=== PATIENT | female | born 1955 | race Caucasian/White ===

== ENCOUNTER 2020-02-03 09:22 | Inpatient (IN) | payer OTHER ==
[~2020-02-03] VITALS: Ht 152.4 cm; Wt 80.9 kg
[2020-02-03] VITALS (11 sets, daily range): BP systolic 125–153; BP diastolic 61–84
[2020-02-03] MEDS ORDERED: ACETAMINOPHEN 325 MG TABLET. PO PRN (11:15)
[2020-02-03] MEDS: HYDROcodone/APAP 5/325MG 1 TAB TABLET PO PRN ×3 (11:54→23:32)
--- NOTE | 2020-02-03 12:56 | HP ---
ADMIT DATE: 02/03/2020 CHIEF COMPLAINT: Pelvic mass. 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 She presented as a transfer from [employer]. She has a pelvic mass. I discussed the case with the nurse, the patient and the ER physician. We are going to admit the patient. We are going to consult Dr. Pedro Pagan of the AUTO BODY BUILDER APPRENTICE service and Oncology. PAST MEDICAL HISTORY: Benign. ALLERGIES: LATEX, RUBBER and FEXOFENADINE. FAMILY HISTORY: Diabetes. SOCIAL HISTORY: She does not drink, smoke or take drugs. 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 MEDICATIONS: Reviewed, please refer to the MRAD. REVIEW OF SYSTEMS: GENERAL: No history of weight change, weakness or fevers. SKIN: No bruising, hair changes or rashes. EYES: No blurred, double or loss of vision. NOSE AND THROAT: No history of nosebleeds, hoarseness or sore throat. HEART: No history of palpitations, chest pain or shortness of breath on exertion. LUNGS: Denies cough, hemoptysis, wheezing or shortness of breath. GASTROINTESTINAL: Denies changes in appetite, nausea, vomiting, diarrhea or constipation. GENITOURINARY: No history of frequency, urgency, hesitancy or nocturia. NEUROLOGIC: Denies history of numbness, tingling, tremor or weakness. PSYCHIATRIC: No history of panic, anxiety or depression. ENDOCRINE: No history of heat or cold intolerance, polyuria or polydipsia. EXTREMITIES: Denies muscle weakness, joint pain, pain on walking or stiffness. PHYSICAL EXAMINATION: VITALS: Within normal limits and are stable. GENERAL: No apparent distress. Alert and oriented. HEENT: Normal cephalic atraumatic, external auditory canals are patent EYES: Extraocular muscles are intact, pupils are equally round and reactive to light and accommodation MUSCULOSKELETAL: Well developed, well nourished, good range of motion ENDOCRINE: No thyromegaly was palpated LYMPHATICS: No cervical chain or axillary nodes were noted HEMATOPOIETIC: No bruising NECK: Supple, no JVD, no thyromegaly was noted. LUNGS: Clear to auscultation in all lung valdovinos without rhonchi or wheezing. HEART: RRR, S1, S2 present. Peripheral pulses intact, no obvious murmurs were noted. ABDOMEN: Soft, nontender. Positive bowel sounds no organomegaly, normal bowel sounds. EXTREMITIES: Without any cyanosis, clubbing, or edema. Pedal pulses intact, Homans sign is negative. NEUROLOGIC: Normal speech, normal tone. A & O x3, moves all extremities, no obvious focal deficits. PSYCHIATRIC: Normal affect, normal mood. Stable. SKIN: No ulcerations or rashes, good skin turgor, no jaundice. VASCULAR: Good capillary refill, neurovascular bundle appears to be intact. ASSESSMENT/PLAN: Pelvic mass. The patient will be admitted. We will consult [employer] BODY BUILDER APPRENTICE and Oncology. IV fluids, home meds, DVT prophylaxis. Full code. Trend labs. TIARA MALONE DO DR: ROSA/chandrakant JOB#: [id number] / [id number]
[2020-02-03] MEDS ORDERED: PROCHLORPERAZINE 10 MG/2 ML VIAL. IV PRN (15:15)
[2020-02-03] MEDS ORDERED: IV RINGERS,LACTATED 1000ML 1,000 ML IV SCH (15:15)
[2020-02-03] MEDS ORDERED: fentaNYL PF VIAL 100 MCG/2 ML VIAL IV PRN ×2 (15:15)
[2020-02-03] MEDS ORDERED: ONDANSETRON PF 4 MG/2 ML VIAL. IV PRN (15:15)
[2020-02-03] MEDS ORDERED: HYDROmorphone 2 MG/ML VIAL IV PRN (15:15)
[2020-02-03] MEDS ORDERED: ROCURONIUM 50 MG/5 ML VIAL. ONE (15:47)
[2020-02-03] MEDS ORDERED: fentaNYL PF VIAL 250 MCG/5 ML VIAL ONE (15:47)
[2020-02-03] MEDS ORDERED: ceFAZolin SODIUM IV Push 1 GM VIAL. IVP ONE ×2 (16:01)
--- NOTE | 2020-02-03 16:06 | CONS ---
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 The patient is seen in consultation because of pelvic mass in the sonogram and she is patient of Dr. Rosales and the patient is 2, para 2. She states she never had any PROTECTION SPECIALIST problem before. No history of any vaginal bleeding at this time. She states that she had a fever and urinary tract infection, which was treated last week and at the present time, she has severe backache, unable to walk and having abdominal discomfort, pelvic discomfort. PHYSICAL EXAMINATION: VITAL SIGNS: Stable at this time. The patient is COVID negative at this time. ABDOMEN: Feels soft and there is palpable mass in the pelvic area. PELVIC: Shows external genitalia being normal. Cervical os is closed. On bimanual exam, uterus feels enlarged and tender to palpate. No adnexal masses clearly felt at this time. EXTREMITIES: No edema of feet. IMPRESSION: Pelvic mass, possible degenerating fibroid, rule out malignancy of the uterus and ovary. RECOMMENDATIONS: It was explained to the patient that we will go ahead with a laparotomy and see if it is a fibroid that can be removed. We will do a hysterectomy and removal of the fibroid and removal of tubes and ovaries, but if she has a suspicion of malignancy on opening the abdomen, then no further surgery will be done. We will close and get a consultation from oncologist for further care and treatment. This plan was discussed with Dr. Rosales and as the patient is n.p.o. at this time, we will go ahead with the surgery today. Thank you for giving me the opportunity to participate in the care and management of this patient. FABIAN RAMOS MD DR: PHANI/chandrakant JOB#: [id number] / [id number]
[2020-02-03] MEDS ORDERED: SEVOFLURANE 31 TO 60 MINUTES. IH ONE (16:29)
[2020-02-03] MEDS ORDERED: LIDOCAINE 2% PF 5 ML VIAL. ONE (16:29)
[2020-02-03] MEDS ORDERED: PROPOFOL 10 MG/ML (20ML) VIAL. IV ONE (16:29)
[2020-02-03] MEDS ORDERED: ONDANSETRON PF 4 MG/2 ML VIAL. ONE (16:29)
[2020-02-03] MEDS ORDERED: DEXAMETHASONE SOD PHOS 4 MG/ML VIAL ONE (16:29)
[2020-02-03] MEDS ORDERED: NEOSTIGMINE METHYLSULFATE 5 MG/5 ML SYRINGE. ONE (16:30)
[2020-02-03] MEDS ORDERED: GLYCOPYRROLATE 1 MG/5 ML VIAL. ONE (16:30)
--- NOTE | 2020-02-03 16:44 | PDOC ---
GENERAL General: Patient Schduled for Laparotomy today VITAL SIGNS Vital Signs/I&O: Vital Signs Date Time Temp Pulse Resp B/P (MAP) Pulse Ox O2 Delivery O2 Flow Rate FiO2 02/03/20 15:00 98.2 99 16 153/84 (107) 95 Room Air 98.2 ALLERGIES Allergies: Allergies Coded Allergies Type Severity Reaction Last Updated Verified Latex, Natural Rubber Allergy Intermediate "bad rash" 02/03/20 Yes fexofenadine Allergy Mild Anxiety 02/03/20 Yes MEDS Medications: Current Medications Medications (Trade) Dose Ordered Sig/Rm Route PRN Reason Start Time Stop Time Status Last Admin Dose Admin Acetaminophen/ Hydrocodone Bitart (Lortab 5/325) 1 tab PRN Q4HRS PRN PO PAIN 02/03/20 11:15 02/03/20 11:54 ASSESSMENT & PLAN A&P Under GA Laparotomy done Large Mass above the Uterus noted and Adherent to Adjacent structures extending on to the Bladder and No mobility of the Mass also extends very Deep posteriorly on to the Rectum.Peritoneal fluid sent for Cytology. Abdomen Closed . No further Surgery done. EBL 20cc. Justifications for Admission Other Justification FABIAN RAMOS MD Feb 03, 2020 16:44
[2020-02-03] MEDS: IV NORMAL SALINE 1000ML BAG 1,000 ML IV SCH (17:00)
[2020-02-03] MEDS ORDERED: MORPHINE SULFATE 2 MG/ML VIAL. ONE (17:19)
--- NOTE | 2020-02-03 17:19 | OP ---
DATE OF SURGERY: 02/03/2020 PREOPERATIVE DIAGNOSES: Backache, abdominal and pelvic pain, pelvic mass. POSTOPERATIVE DIAGNOSES: Backache, abdominal and pelvic pain, pelvic mass, rule out malignancy. OPERATION PERFORMED: Laparotomy, aspiration of peritoneal fluid for cytology. DESCRIPTION OF PROCEDURE: The patient was taken to the operating room under general anesthesia. She was placed in the dorsal supine position. Watson catheter introduced into bladder for continuous bladder drainage. Lower abdomen was prepped and draped in the usual manner. A Pfannenstiel incision was made, abdomen opened in layers and visualization of pelvic structures revealed peritoneal fluid around the mass and there is a large mass on the top of the uterus, which was quite adherent to adjacent structures, extending onto the bladder as well as on the side abdominal wall and there is quite adherent and there is no mobility of the mass as such posteriorly extending onto the rectal area and aspiration of peritoneal fluid was done and sent for cytology. After this abdomen closed in layers using continuous 0 chromic catgut sutures for the peritoneum, the muscle, the fascia, 3-0 plain continuous sutures applied for subcutaneous tissue, 3-0 Vicryl subcutaneous sutures were placed and a pressure dressing was given. The patient was sent to the recovery room in good condition. No complications encountered at the time of the procedure. Estimated blood loss about 20 mL. No complications during the time of the procedure. FABIAN RAMOS MD DR: PHANI/chandrakant JOB#: [id number] / [id number]
[2020-02-03] MEDS: MORPHINE SULFATE 2 MG/ML VIAL. IV PRN ×3 (17:25→19:27)
[2020-02-03] MEDS ORDERED: LORA10TA55 PO (20:29)
[2020-02-03] MEDS ORDERED: DULO60CA6 PO (20:29)
[2020-02-03] MEDS ORDERED: IBUP-1060 PO (20:29)
[2020-02-03] MEDS ORDERED: BUPR150T27 PO (20:29)
[2020-02-03] MEDS ORDERED: OMEP20CA16 PO (20:29)
[2020-02-03] MEDS ORDERED: POTA500T5 PO (20:29)
[2020-02-03] MEDS ORDERED: ALPR0.5T6 PO (20:29)
[2020-02-03] MEDS ORDERED: CALC-642 PO (20:29)
[2020-02-03] MEDS ORDERED: LEVO88TA4 PO (20:29)
[2020-02-03] MEDS ORDERED: MULT-238 PO (20:29)
[2020-02-03] MEDS ORDERED: DIVA-53 PO (20:29)
[2020-02-03] MEDS: buPROPion SR 150 MG TABLET.SA PO SCH (21:13)
[2020-02-03] MEDS: DIVALPROEX DELAYED RELEASE 250 MG TABLET.DR. PO SCH (21:14)
[2020-02-03] MEDS: fentaNYL PF VIAL 100 MCG/2 ML VIAL IVP PRN ×2 (21:15→23:33)
[2020-02-03] MEDS: ONDANSETRON PF 4 MG/2 ML VIAL. IVP PRN (21:15)
--- NOTE | 2020-02-04 00:30 | NUR ---
Patient triggered positive on sepsis screen. ICU supercharge repair supervisor notified, lactic acid ordered and blood cultures x2 . Lactic acid came back 0.8.
[2020-02-04 02:40] LABS: BASO % 0 % (0-3); EOS # 0.1 x10^3/uL (0.0-0.7); EOS % 0 % (0-3); HEMATOCRIT 31.7 % (36.0-47.0); HEMOGLOBIN 10.5 g/dL (12.0-15.5); LYMPH # 1.8 x10^3/uL (1.0-4.8); LYMPH % 9 % (24-48); MEAN CORPUSCULAR HEMOGLOBIN 28 pg (25-35); MEAN CORPUSCULAR HGB CONC 33 g/dL (31-37); MEAN CORPUSCULAR VOLUME 84 fL (79-100); MONO # 1.3 x10^3/uL (0.0-1.1); MONO % 7 % (0-9); NEUT % 83 % (31-73); PLATELET COUNT 472 x10^3/uL (140-400); RED BLOOD COUNT 3.78 x10^6/uL (3.50-5.40); RED CELL DISTRIBUTION WIDTH 14.7 % (11.5-14.5); WHITE BLOOD COUNT 19.2 x10^3/uL (4.0-11.0)
[2020-02-04] MEDS: fentaNYL PF VIAL 100 MCG/2 ML VIAL IVP PRN ×6 (02:50→22:39)
[2020-02-04 02:57] LABS: CALCIUM 8.6 mg/dL (8.5-10.1); CREATININE 0.7 mg/dL (0.6-1.0); GFR 83.7; POTASSIUM 3.9 mmol/L (3.5-5.1)
[2020-02-04] MEDS: ALPRAZolam 0.5 MG TABLET PO PRN (02:59)
[2020-02-04 03:12] VITALS: BP 127/73
[2020-02-04] MEDS: ONDANSETRON PF 4 MG/2 ML VIAL. IVP PRN (03:18)
[2020-02-04] MEDS: HYDROcodone/APAP 5/325MG 1 TAB TABLET PO PRN ×5 (03:47→21:58)
[2020-02-04 04:16] LABS: % BANDS 9 % (0-9); % LYMPHS 9 % (24-48); % MONOS 4 % (0-10); % SEGS 78 % (35-66); PLT ESTIMATE ADEQUATE (ADEQUATE)
[2020-02-04 04:17] LABS: ANISOCYTOSIS SLIGHT; TOXIC GRANULATION SLIGHT
[2020-02-04] MEDS: PANTOPRAZOLE 40 MG TABLET.DR. PO SCH (06:58)
[2020-02-04] MEDS: LEVOTHYROXINE 88 MCG TABLET PO SCH (06:58)
[2020-02-04 07:00] VITALS: BP 120/66
[2020-02-04] MEDS: IV NORMAL SALINE 1000ML BAG 1,000 ML IV SCH ×3 (07:24→20:45)
[2020-02-04] MEDS ORDERED: NON FORMULARY ITEM (Potassium Gluconate 500 MG) PO SCH (09:00)
[2020-02-04] MEDS: DIVALPROEX DELAYED RELEASE 250 MG TABLET.DR. PO SCH ×2 (09:11→20:44)
[2020-02-04] MEDS: buPROPion SR 150 MG TABLET.SA PO SCH ×2 (09:11→20:44)
[2020-02-04] MEDS: MULTIVITAMIN with MINERAL TABLET. PO SCH (09:11)
[2020-02-04] MEDS: CALCIUM CARB/VIT D3 500/200 TABLET. PO SCH (09:11)
[2020-02-04] MEDS: CETIRIZINE HCL 10 MG TABLET. PO SCH (09:12)
[2020-02-04] MEDS: DULoxetine HCL 30 MG CAPSULE.DR PO SCH (09:12)
--- NOTE | 2020-02-04 10:56 | PDOC ---
[facility] [facility] PROGRESS NOTE Date of Service DOS: DATE: 02/04/20 TIME: 10:52 Chief Complaint Chief Complaint Pelvic mass (Suspicious for neoplasm) Backache abdominal discomfort Diabetes History of UTIs Anxiety Depression Hypothyroidism Arthritis GERD History of Present Illness History of Present Illness 02/04/2020 Pt seen and examined. Pt has clean and dry intact dressing. Pt is talkative and in pleasant mood. 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 She presented as a transfer from [employer]. She has a pelvic mass. I discussed the case with the nurse, the patient and the ER physician. We are going to admit the patient. We are going to consult Dr. Pedro Pagan of the [employer] service and Oncology. Vitals/I&O Vitals/I&O: Vital Signs Date Time Temp Pulse Resp B/P (MAP) Pulse Ox O2 Delivery O2 Flow Rate FiO2 02/04/20 09:12 20 Room Air 02/04/20 09:11 2.0 02/04/20 07:00 98.3 94 120/66 (84) 93 98.3 I & O 02/03/20 02/03/20 02/04/20 15:00 23:00 07:00 Intake Total 1300 ml 100 ml Output Total 220 ml 280 ml Balance 1080 ml -180 ml Physical Exam General: Alert, mild distress Heart: Regular rate, Normal S1, Normal S2 Lungs: Clear Abdomen: Soft, No tenderness Extremities: No clubbing, No cyanosis Skin: No rashes, No breakdown Labs Labs: Laboratory Tests Test 02/04/20 01:25 02/04/20 01:45 Lactic Acid Level 0.8 mmol/L (0.4-2.0) White Blood Count 19.2 x10^3/uL (4.0-11.0) Red Blood Count 3.78 x10^6/uL (3.50-5.40) Hemoglobin 10.5 g/dL (12.0-15.5) Hematocrit 31.7 % (36.0-47.0) Mean Corpuscular Volume 84 fL (79-100) Mean Corpuscular Hemoglobin 28 pg (25-35) Mean Corpuscular Hemoglobin Concent 33 g/dL (31-37) Red Cell Distribution Width 14.7 % (11.5-14.5) Platelet Count 472 x10^3/uL (140-400) Neutrophils (%) (Auto) 83 % (31-73) Lymphocytes (%) (Auto) 9 % (24-48) Monocytes (%) (Auto) 7 % (0-9) Eosinophils (%) (Auto) 0 % (0-3) Basophils (%) (Auto) 0 % (0-3) Neutrophils # (Auto) 16.0 x10^3/uL (1.8-7.7) Lymphocytes # (Auto) 1.8 x10^3/uL (1.0-4.8) Monocytes # (Auto) 1.3 x10^3/uL (0.0-1.1) Eosinophils # (Auto) 0.1 x10^3/uL (0.0-0.7) Basophils # (Auto) 0.0 x10^3/uL (0.0-0.2) Segmented Neutrophils % 78 % (35-66) Band Neutrophils % 9 % (0-9) Lymphocytes % 9 % (24-48) Monocytes % 4 % (0-10) Toxic Granulation Slight Platelet Estimate Adequate (ADEQUATE) Anisocytosis Slight Sodium Level 137 mmol/L (136-145) Potassium Level 3.9 mmol/L (3.5-5.1) Chloride Level 98 mmol/L (98-107) Carbon Dioxide Level 31 mmol/L (21-32) Anion Gap 8 (6-14) Blood Urea Nitrogen 12 mg/dL (7-20) Creatinine 0.7 mg/dL (0.6-1.0) Estimated GFR (Cockcroft-Gault) 83.7 Glucose Level 92 mg/dL (70-99) Calcium Level 8.6 mg/dL (8.5-10.1) Review of Systems Review of Systems: NO headaches. No chest pain Assessment and Plan Assessmemt and Plan Pelvic mass (Suspicious for neoplasm) Backache abdominal discomfort Diabetes History of UTIs Anxiety Depression Hypothyroidism Arthritis GERD Plan: Add Zosyn per pharmacy Awaiting input from Hematology and Oncology Awaiting Cytology Wound Mcc Meds PT/OT DVT prophylaxis Full Code. Comment Review of Relevant I have reviewed the following items angela (where applicable) has been applied. Medications: Current Medications Medications (Trade) Dose Ordered Sig/Rm Route PRN Reason Start Time Stop Time Status Last Admin Dose Admin Acetaminophen/ Hydrocodone Bitart (Lortab 5/325) 1 tab PRN Q4HRS PRN PO PAIN 02/03/20 11:15 02/04/20 09:12 Sodium Chloride 1,000 ml @ 75 mls/hr [id number] IV 02/03/20 12:45 02/04/20 07:24 Morphine Sulfate (Morphine Sulfate) 1 mg PRN Q10MIN PRN IV SEVERE PAIN 7-10 02/03/20 15:15 02/04/20 15:14 02/03/20 17:30 Ringer's Solution 1,000 ml @ 30 mls/hr Q24H IV 02/03/20 15:15 02/04/20 03:14 DC 02/03/20 15:15 Morphine Sulfate (Morphine Sulfate) 2 mg PRN Q2HR PRN IV PAIN 02/03/20 19:15 02/03/20 19:27 Fentanyl Citrate (Fentanyl 2ml Vial) 50 mcg PRN Q2HR PRN IVP PAIN 02/03/20 19:15 02/04/20 09:11 Ondansetron HCl (Zofran) 4 mg PRN Q6HRS PRN IVP NAUSEA/VOMITING 02/03/20 19:30 02/04/20 03:18 Alprazolam (Xanax) 0.5 mg PRN TID PRN PO ANXIETY / AGITATION 02/03/20 20:30 02/04/20 02:59 Divalproex Sodium (Depakote) 250 mg BID PO 02/03/20 21:00 02/04/20 09:11 Levothyroxine Sodium (Synthroid) 88 mcg DAILYAC PO 02/04/20 07:30 02/04/20 06:58 Bupropion HCl (Wellbutrin Sr) 150 mg BID PO 02/03/20 21:00 02/04/20 09:11 Calcium/Vitamin D (Oscal D 500mg/ 200uts) 1 tab DAILY PO 02/04/20 09:00 02/04/20 09:11 Duloxetine HCl (Cymbalta) 60 mg DAILY PO 02/04/20 09:00 02/04/20 09:12 Cetirizine HCl (ZyrTEC) 10 mg DAILY PO 02/04/20 09:00 02/04/20 09:12 Multivitamins (Thera M Plus) 1 tab DAILY PO 02/04/20 09:00 02/04/20 09:11 Pantoprazole Sodium (Protonix) 40 mg DAILYAC PO 02/04/20 07:30 02/04/20 06:58 Justifications for Admission Other Justification TIARA MALONE III DO Feb 04, 2020 10:56
[2020-02-04 11:00] VITALS: BP 117/71
[2020-02-04 15:00] VITALS: BP 122/76
[2020-02-04 19:00] VITALS: BP 102/58
[2020-02-04 23:00] VITALS: BP 118/68
[2020-02-05 03:00] VITALS: BP 124/71
[2020-02-05] MEDS: HYDROcodone/APAP 5/325MG 1 TAB TABLET PO PRN ×4 (03:23→20:34)
[2020-02-05] MEDS: ALPRAZolam 0.5 MG TABLET PO PRN ×2 (04:12→23:32)
[2020-02-05 07:23] VITALS: BP 113/67
[2020-02-05] MEDS: PANTOPRAZOLE 40 MG TABLET.DR. PO SCH (07:35)
[2020-02-05] MEDS: LEVOTHYROXINE 88 MCG TABLET PO SCH (07:35)
[2020-02-05 08:40] LABS: BASO % 0 % (0-3); EOS # 0.3 x10^3/uL (0.0-0.7); EOS % 1 % (0-3); HEMATOCRIT 32.9 % (36.0-47.0); LYMPH # 2.3 x10^3/uL (1.0-4.8); LYMPH % 11 % (24-48); MEAN CORPUSCULAR HEMOGLOBIN 28 pg (25-35); MEAN CORPUSCULAR HGB CONC 33 g/dL (31-37); MEAN CORPUSCULAR VOLUME 85 fL (79-100); MONO % 5 % (0-9); NEUT # 16.6 x10^3/uL (1.8-7.7); NEUT % 82 % (31-73); PLATELET COUNT 513 x10^3/uL (140-400); RED BLOOD COUNT 3.88 x10^6/uL (3.50-5.40); RED CELL DISTRIBUTION WIDTH 15.2 % (11.5-14.5); WHITE BLOOD COUNT 20.2 x10^3/uL (4.0-11.0)
[2020-02-05] MEDS: DIVALPROEX DELAYED RELEASE 250 MG TABLET.DR. PO SCH ×2 (08:40→20:34)
[2020-02-05] MEDS: CALCIUM CARB/VIT D3 500/200 TABLET. PO SCH (08:40)
[2020-02-05] MEDS: buPROPion SR 150 MG TABLET.SA PO SCH ×2 (08:40→20:34)
[2020-02-05] MEDS: CETIRIZINE HCL 10 MG TABLET. PO SCH (08:40)
[2020-02-05] MEDS: MULTIVITAMIN with MINERAL TABLET. PO SCH (08:40)
[2020-02-05] MEDS: DULoxetine HCL 30 MG CAPSULE.DR PO SCH (08:40)
[2020-02-05 09:10] LABS: CALCIUM 8.8 mg/dL (8.5-10.1); CREATININE 0.7 mg/dL (0.6-1.0); GFR 83.7; POTASSIUM 3.8 mmol/L (3.5-5.1)
--- NOTE | 2020-02-05 09:30 | NUR ---
SW following. Discussed with RN, pt from home, room air, regular diet. PT/OT ordered. Pt had laparotomy on 02/03/2020, awaiting oncology consultation for possible cancer dx. RN advised no SW needs at this time. SW will continue to follow.
[2020-02-05 10:46] VITALS: BP 108/61
[2020-02-05] MEDS: ONDANSETRON PF 4 MG/2 ML VIAL. IVP PRN (13:07)
[2020-02-05] MEDS: IV NORMAL SALINE 1000ML BAG 1,000 ML IV SCH (13:07)
[2020-02-05] MEDS: MORPHINE SULFATE 2 MG/ML VIAL. IV PRN (14:10)
[2020-02-05 15:00] VITALS: BP 121/63
--- NOTE | 2020-02-05 15:12 | PDOC ---
PROGRESS NOTES Date of Service: DATE: 02/05/20 TIME: 15:07 Chief Complaint Chief Complaint Pelvic mass (Suspicious for neoplasm) Backache abdominal discomfort Diabetes mellitus seems to be well controlled with no insulin History of UTIs Anxiety Depression Hypothyroidism Arthritis GERD Plan: wait for pathology further recommendations based on results pain management History of Present Illness History of Present Illness 02/04/2020 Pt seen and examined. Pt has clean and dry intact dressing. Pt is talkative and in pleasant mood. 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 She presented as a transfer from [employer]. She has a pelvic mass. I discussed the case with the nurse, the patient and the ER physician. We are going to admit the patient. We are going to consult Dr. Pedro Pagan of the [facility] service and Oncology. Vitals Vitals Vital Signs Date Time Temp Pulse Resp B/P (MAP) Pulse Ox O2 Delivery O2 Flow Rate FiO2 02/05/20 14:10 Room Air 02/05/20 10:46 98.1 86 16 108/61 (77) 98.1 02/05/20 07:23 95 02/05/20 03:00 2.0 Physical Exam General: Alert, mild distress Heart: Regular rate, Normal S1, Normal S2 Lungs: Clear Abdomen: Soft, No tenderness Extremities: No clubbing, No cyanosis Skin: No rashes, No breakdown Labs LABS Laboratory Tests Test 02/05/20 07:40 White Blood Count 20.2 x10^3/uL (4.0-11.0) Red Blood Count 3.88 x10^6/uL (3.50-5.40) Hemoglobin 11.0 g/dL (12.0-15.5) Hematocrit 32.9 % (36.0-47.0) Mean Corpuscular Volume 85 fL (79-100) Mean Corpuscular Hemoglobin 28 pg (25-35) Mean Corpuscular Hemoglobin Concent 33 g/dL (31-37) Red Cell Distribution Width 15.2 % (11.5-14.5) Platelet Count 513 x10^3/uL (140-400) Neutrophils (%) (Auto) 82 % (31-73) Lymphocytes (%) (Auto) 11 % (24-48) Monocytes (%) (Auto) 5 % (0-9) Eosinophils (%) (Auto) 1 % (0-3) Basophils (%) (Auto) 0 % (0-3) Neutrophils # (Auto) 16.6 x10^3/uL (1.8-7.7) Lymphocytes # (Auto) 2.3 x10^3/uL (1.0-4.8) Monocytes # (Auto) 1.0 x10^3/uL (0.0-1.1) Eosinophils # (Auto) 0.3 x10^3/uL (0.0-0.7) Basophils # (Auto) 0.0 x10^3/uL (0.0-0.2) Sodium Level 140 mmol/L (136-145) Potassium Level 3.8 mmol/L (3.5-5.1) Chloride Level 101 mmol/L (98-107) Carbon Dioxide Level 34 mmol/L (21-32) Anion Gap 5 (6-14) Blood Urea Nitrogen 7 mg/dL (7-20) Creatinine 0.7 mg/dL (0.6-1.0) Estimated GFR (Cockcroft-Gault) 83.7 Glucose Level 104 mg/dL (70-99) Calcium Level 8.8 mg/dL (8.5-10.1) Comment Review of Relevant I have reviewed the following items angela (where applicable) has been applied. Labs Laboratory Tests Test 02/04/20 01:25 02/04/20 01:45 02/05/20 07:40 Lactic Acid Level 0.8 mmol/L (0.4-2.0) White Blood Count 19.2 x10^3/uL (4.0-11.0) 20.2 x10^3/uL (4.0-11.0) Red Blood Count 3.78 x10^6/uL (3.50-5.40) 3.88 x10^6/uL (3.50-5.40) Hemoglobin 10.5 g/dL (12.0-15.5) 11.0 g/dL (12.0-15.5) Hematocrit 31.7 % (36.0-47.0) 32.9 % (36.0-47.0) Mean Corpuscular Volume 84 fL (79-100) 85 fL (79-100) Mean Corpuscular Hemoglobin 28 pg (25-35) 28 pg (25-35) Mean Corpuscular Hemoglobin Concent 33 g/dL (31-37) 33 g/dL (31-37) Red Cell Distribution Width 14.7 % (11.5-14.5) 15.2 % (11.5-14.5) Platelet Count 472 x10^3/uL (140-400) 513 x10^3/uL (140-400) Neutrophils (%) (Auto) 83 % (31-73) 82 % (31-73) Lymphocytes (%) (Auto) 9 % (24-48) 11 % (24-48) Monocytes (%) (Auto) 7 % (0-9) 5 % (0-9) Eosinophils (%) (Auto) 0 % (0-3) 1 % (0-3) Basophils (%) (Auto) 0 % (0-3) 0 % (0-3) Neutrophils # (Auto) 16.0 x10^3/uL (1.8-7.7) 16.6 x10^3/uL (1.8-7.7) Lymphocytes # (Auto) 1.8 x10^3/uL (1.0-4.8) 2.3 x10^3/uL (1.0-4.8) Monocytes # (Auto) 1.3 x10^3/uL (0.0-1.1) 1.0 x10^3/uL (0.0-1.1) Eosinophils # (Auto) 0.1 x10^3/uL (0.0-0.7) 0.3 x10^3/uL (0.0-0.7) Basophils # (Auto) 0.0 x10^3/uL (0.0-0.2) 0.0 x10^3/uL (0.0-0.2) Segmented Neutrophils % 78 % (35-66) Band Neutrophils % 9 % (0-9) Lymphocytes % 9 % (24-48) Monocytes % 4 % (0-10) Toxic Granulation Slight Platelet Estimate Adequate (ADEQUATE) Anisocytosis Slight Sodium Level 137 mmol/L (136-145) 140 mmol/L (136-145) Potassium Level 3.9 mmol/L (3.5-5.1) 3.8 mmol/L (3.5-5.1) Chloride Level 98 mmol/L (98-107) 101 mmol/L (98-107) Carbon Dioxide Level 31 mmol/L (21-32) 34 mmol/L (21-32) Anion Gap 8 (6-14) 5 (6-14) Blood Urea Nitrogen 12 mg/dL (7-20) 7 mg/dL (7-20) Creatinine 0.7 mg/dL (0.6-1.0) 0.7 mg/dL (0.6-1.0) Estimated GFR (Cockcroft-Gault) 83.7 83.7 Glucose Level 92 mg/dL (70-99) 104 mg/dL (70-99) Calcium Level 8.6 mg/dL (8.5-10.1) 8.8 mg/dL (8.5-10.1) Laboratory Tests Test 02/05/20 07:40 White Blood Count 20.2 x10^3/uL (4.0-11.0) Red Blood Count 3.88 x10^6/uL (3.50-5.40) Hemoglobin 11.0 g/dL (12.0-15.5) Hematocrit 32.9 % (36.0-47.0) Mean Corpuscular Volume 85 fL (79-100) Mean Corpuscular Hemoglobin 28 pg (25-35) Mean Corpuscular Hemoglobin Concent 33 g/dL (31-37) Red Cell Distribution Width 15.2 % (11.5-14.5) Platelet Count 513 x10^3/uL (140-400) Neutrophils (%) (Auto) 82 % (31-73) Lymphocytes (%) (Auto) 11 % (24-48) Monocytes (%) (Auto) 5 % (0-9) Eosinophils (%) (Auto) 1 % (0-3) Basophils (%) (Auto) 0 % (0-3) Neutrophils # (Auto) 16.6 x10^3/uL (1.8-7.7) Lymphocytes # (Auto) 2.3 x10^3/uL (1.0-4.8) Monocytes # (Auto) 1.0 x10^3/uL (0.0-1.1) Eosinophils # (Auto) 0.3 x10^3/uL (0.0-0.7) Basophils # (Auto) 0.0 x10^3/uL (0.0-0.2) Sodium Level 140 mmol/L (136-145) Potassium Level 3.8 mmol/L (3.5-5.1) Chloride Level 101 mmol/L (98-107) Carbon Dioxide Level 34 mmol/L (21-32) Anion Gap 5 (6-14) Blood Urea Nitrogen 7 mg/dL (7-20) Creatinine 0.7 mg/dL (0.6-1.0) Estimated GFR (Cockcroft-Gault) 83.7 Glucose Level 104 mg/dL (70-99) Calcium Level 8.8 mg/dL (8.5-10.1) Microbiology 02/04/20 Blood Culture - Preliminary, Resulted NO GROWTH AFTER 1 DAY Medications Current Medications Acetaminophen/ Hydrocodone Bitart (Lortab 5/325) 1 tab PRN Q4HRS PRN PO PAIN Last administered on 02/05/20at 12:18; Start 02/03/20 at 11:15 Acetaminophen (Tylenol) 650 mg PRN Q6HRS PRN PO MILD PAIN / TEMP > 100.3'F; Start 02/03/20 at 11:15 Sodium Chloride 1,000 ml @ 75 mls/hr [id number] IV Last administered on 02/05/20at 13:07; Start 02/03/20 at 12:45 Ondansetron HCl (Zofran) 4 mg PRN Q6HRS PRN IV NAUSEA/VOMITING; Start 02/03/20 at 15:15; Stop 02/03/20 at 19:28; Status DC Fentanyl Citrate (Fentanyl 2ml Vial) 25 mcg PRN Q5MIN PRN IV MILD PAIN 1-3; Start 02/03/20 at 15:15; Stop 02/04/20 at 15:14; Status DC Fentanyl Citrate (Fentanyl 2ml Vial) 50 mcg PRN Q5MIN PRN IV MODERATE TO SEVERE PAIN Last administered on 02/04/20at 13:38; Start 02/03/20 at 15:15; Stop 02/04/20 at 15:14; Status DC Morphine Sulfate (Morphine Sulfate) 1 mg PRN Q10MIN PRN IV SEVERE PAIN 7-10 Last administered on 02/03/20at 17:30; Start 02/03/20 at 15:15; Stop 02/04/20 at 15:14; Status DC Ringer's Solution 1,000 ml @ 30 mls/hr Q24H IV Last administered on 02/03/20at 15:15; Start 02/03/20 at 15:15; Stop 02/04/20 at 03:14; Status DC Hydromorphone HCl (Dilaudid) 0.5 mg PRN Q10MIN PRN IV SEV PAIN, Second choice; Start 02/03/20 at 15:15; Stop 02/04/20 at 15:14; Status DC Prochlorperazine Edisylate (Compazine) 5 mg PACU PRN PRN IV NAUSEA, MRX1; Start 02/03/20 at 15:15; Stop 02/04/20 at 15:14; Status DC Rocuronium [place] (Zemuron) 50 mg STK-MED ONCE .ROUTE ; Start 02/03/20 at 15:47; Stop 02/03/20 at 15:47; Status DC Fentanyl Citrate (Fentanyl 5ml Vial) 250 mcg STK-MED ONCE .ROUTE ; Start 02/03/20 at 15:47; Stop 02/03/20 at 15:47; Status DC Cefazolin Sodium (Ancef) 1 gm STK-MED ONCE IVP ; Start 02/03/20 at 16:01; Stop 02/03/20 at 16:02; Status DC Cefazolin Sodium (Ancef) 1 gm STK-MED ONCE IVP ; Start 02/03/20 at 16:01; Stop 02/03/20 at 16:02; Status DC Propofol (Diprivan) 200 mg STK-MED ONCE IV ; Start 02/03/20 at 16:29; Stop 02/03/20 at 16:29; Status DC Lidocaine HCl (Lidocaine Pf 2% Vial) 5 ml STK-MED ONCE .ROUTE ; Start 02/03/20 at 16:29; Stop 02/03/20 at 16:29; Status DC Ondansetron HCl (Zofran) 4 mg STK-MED ONCE .ROUTE ; Start 02/03/20 at 16:29; Stop 02/03/20 at 16:29; Status DC Dexamethasone Sodium Phosphate (Decadron) 4 mg STK-MED ONCE .ROUTE ; Start 02/03/20 at 16:29; Stop 02/03/20 at 16:29; Status DC Sevoflurane (Ultane) 30 ml STK-MED ONCE IH ; Start 02/03/20 at 16:29; Stop 02/03/20 at 16:29; Status DC Neostigmine [place] (Neostigmine Methylsulfate) 5 mg STK-MED ONCE .ROUTE ; Start 02/03/20 at 16:30; Stop 02/03/20 at 16:30; Status DC Glycopyrrolate (Robinul) 1 mg STK-MED ONCE .ROUTE ; Start 02/03/20 at 16:30; Stop 02/03/20 at 16:31; Status DC Morphine Sulfate (Morphine Sulfate) 2 mg STK-MED ONCE .ROUTE ; Start 02/03/20 at 17:19; Stop 02/03/20 at 17:19; Status DC Morphine Sulfate (Morphine Sulfate) 2 mg PRN Q2HR PRN IV PAIN Last administered on 02/05/20at 14:10; Start 02/03/20 at 19:15 Fentanyl Citrate (Fentanyl 2ml Vial) 50 mcg PRN Q2HR PRN IVP PAIN Last administered on 02/04/20at 22:39; Start 02/03/20 at 19:15 Ondansetron HCl (Zofran) 4 mg PRN Q6HRS PRN IVP NAUSEA/VOMITING Last administered on 02/05/20at 13:07; Start 02/03/20 at 19:30 Alprazolam (Xanax) 0.5 mg PRN TID PRN PO ANXIETY / AGITATION Last administered on 02/05/20at 04:12; Start 02/03/20 at 20:30 Divalproex Sodium (Depakote) 250 mg BID PO Last administered on 02/05/20at 08:40; Start 02/03/20 at 21:00 Levothyroxine Sodium (Synthroid) 88 mcg DAILYAC PO Last administered on 02/05/20at 07:35; Start 02/04/20 at 07:30 Bupropion HCl (Wellbutrin Sr) 150 mg BID PO Last administered on 02/05/20at 08:40; Start 02/03/20 at 21:00 Calcium/Vitamin D (Oscal D 500mg/ 200uts) 1 tab DAILY PO Last administered on 02/05/20 08:40; Start 02/04/20 at 09:00 Duloxetine HCl (Cymbalta) 60 mg DAILY PO Last administered on 02/05/20at 08:40; Start 02/04/20 at 09:00 Ibuprofen (Motrin) 800 mg PRN Q8HRS PRN PO INFLAMMATION; Start 02/03/20 at 20:45 Cetirizine HCl (ZyrTEC) 10 mg DAILY PO Last administered on 02/05/20at 08:40; Start 02/04/20 at 09:00 Multivitamins (Thera M Plus) 1 tab DAILY PO Last administered on 02/05/20at 08:40; Start 02/04/20 at 09:00 Pantoprazole Sodium (Protonix) 40 mg DAILYAC PO Last administered on 02/05/20at 07:35; Start 02/04/20 at 07:30 Non-Formulary Medication (Potassium Gluconate ) 500 mg DAILY PO ; Start 02/04/20 at 09:00; Status UNV Active Scripts Active Reported Ibuprofen 800 Mg Tablet 800 Mg PO PRN Q8HRS PRN Divalproex Sodium 500 Mg Tablet. 250 Mg PO BID Bupropion Hcl Sr (Bupropion Hcl) 150 Mg Tablet.er 150 Mg PO BID Levothyroxine Sodium 88 Mcg Tablet 88 Mcg PO DAILYAC Omeprazole 20 Mg Capsule. 1 Cap PO BID Loratadine 10 Mg Tab.rapdis 1 Tab PO DAILY 30 Days Calcium 500 mg-Vit D3 600 Unit (Calcium Carbonate/Vitamin D3) 1 Each Tablet 1 Tab PO DAILY 30 Days Alprazolam 0.5 Mg Tablet 1 Tab PO TID PRN Thera-M Caplet (Multivit,Ther Iron,Ca,Fa & Min) 1 Each Tablet 1 Tab PO DAILY 30 Days Potassium Gluconate 500 Mg Tablet 500 Mg PO DAILY Cymbalta (Duloxetine Hcl) 60 Mg Capsule. 1 Cap PO DAILY Vitals/I & O Vital Sign - Last 24 Hours 02/04/20 02/04/20 02/04/20 02/04/20 17:38 17:39 18:08 18:39 Resp 20 20 20 20 O2 Delivery Room Air Room Air Room Air Room Air 02/04/20 02/04/20 02/04/20 02/04/20 19:00 20:00 21:58 22:39 Temp 97.8 97.8 Pulse 95 Resp 18 16 14 B/P (MAP) 102/58 (73) Pulse Ox 95 O2 Delivery Room Air Room Air Room Air Room Air 02/04/20 02/04/20 02/04/20 02/05/20 23:00 23:20 23:20 03:00 Temp 99.2 99.2 Pulse 96 102 Resp 20 14 14 20 B/P (MAP) 118/68 (85) 124/71 (88) Pulse Ox 92 98 O2 Delivery Room Air Room Air Room Air Nasal Cannula O2 Flow Rate 2.0 02/05/20 02/05/20 02/05/20 02/05/20 03:23 04:20 07:15 07:23 Temp 98.1 98.1 Pulse 94 Resp 16 16 16 B/P (MAP) 113/67 (82) Pulse Ox 95 O2 Delivery Room Air Room Air Room Air Room Air 02/05/20 02/05/20 02/05/20 02/05/20 07:34 08:40 10:46 12:18 Temp 98.1 98.1 Pulse 86 Resp 16 B/P (MAP) 108/61 (77) O2 Delivery Room Air Room Air Room Air Room Air 02/05/20 02/05/20 13:51 14:10 O2 Delivery Room Air Room Air Intake and Output 02/04/20 02/04/20 02/05/20 15:00 23:00 07:00 Intake Total 2420 ml 150 ml Output Total 200 ml Balance -200 ml 2420 ml 150 ml Justicifation of Admission Dx: Justifications for Admission: Justification of Admission Dx: Comment: Comments: pelvic mass awaiting pathology rule out malignancy MARVIN HIGUERA MD Feb 05, 2020 15:12
[2020-02-05 19:00] VITALS: BP 112/55
[2020-02-05] MEDS: DOCUSATE SODIUM 100 MG CAPSULE. PO SCH (21:34)
[2020-02-05] MEDS: POLYETHYLENE GLYCOL 3350 17 GM PACKET. PO PRN (21:34)
[2020-02-05 23:11] VITALS: BP 115/70
[2020-02-06] MEDS ORDERED: POLYVINYL ALCOHOL 1.4% OPHTH SOLUTION 15ML BOTTLE. OU PRN
[2020-02-06] MEDS: IV NORMAL SALINE 1000ML BAG 1,000 ML IV SCH ×2 (00:49→08:51)
[2020-02-06] MEDS: HYDROcodone/APAP 5/325MG 1 TAB TABLET PO PRN ×5 (02:18→22:28)
[2020-02-06 02:58] VITALS: BP 131/71
[2020-02-06] MEDS: LEVOTHYROXINE 88 MCG TABLET PO SCH (06:22)
[2020-02-06] MEDS: PANTOPRAZOLE 40 MG TABLET.DR. PO SCH (06:22)
[2020-02-06 07:00] VITALS: BP 112/61
[2020-02-06 08:32] LABS: BASO # 0.1 x10^3/uL (0.0-0.2); BASO % 0 % (0-3); EOS # 0.3 x10^3/uL (0.0-0.7); EOS % 2 % (0-3); HEMATOCRIT 29.9 % (36.0-47.0); HEMOGLOBIN 9.9 g/dL (12.0-15.5); LYMPH % 11 % (24-48); MEAN CORPUSCULAR HEMOGLOBIN 28 pg (25-35); MEAN CORPUSCULAR HGB CONC 33 g/dL (31-37); MEAN CORPUSCULAR VOLUME 84 fL (79-100); MONO # 0.9 x10^3/uL (0.0-1.1); MONO % 5 % (0-9); NEUT % 82 % (31-73); PLATELET COUNT 471 x10^3/uL (140-400); RED BLOOD COUNT 3.55 x10^6/uL (3.50-5.40); RED CELL DISTRIBUTION WIDTH 14.8 % (11.5-14.5); WHITE BLOOD COUNT 18.4 x10^3/uL (4.0-11.0)
[2020-02-06] MEDS: CETIRIZINE HCL 10 MG TABLET. PO SCH (08:50)
[2020-02-06] MEDS: DOCUSATE SODIUM 100 MG CAPSULE. PO SCH ×2 (08:50→20:47)
[2020-02-06] MEDS: DIVALPROEX DELAYED RELEASE 250 MG TABLET.DR. PO SCH ×2 (08:50→20:47)
[2020-02-06] MEDS: DULoxetine HCL 30 MG CAPSULE.DR PO SCH (08:50)
[2020-02-06] MEDS: MULTIVITAMIN with MINERAL TABLET. PO SCH (08:50)
[2020-02-06] MEDS: IBUPROFEN 400 MG TABLET. PO PRN (08:50)
[2020-02-06] MEDS: buPROPion SR 150 MG TABLET.SA PO SCH ×2 (08:50→20:47)
[2020-02-06] MEDS: CALCIUM CARB/VIT D3 500/200 TABLET. PO SCH (08:51)
[2020-02-06] MEDS: MORPHINE SULFATE 2 MG/ML VIAL. IV PRN (08:55)
[2020-02-06 09:03] LABS: CALCIUM 8.5 mg/dL (8.5-10.1); CREATININE 0.6 mg/dL (0.6-1.0); POTASSIUM 4.2 mmol/L (3.5-5.1)
--- NOTE | 2020-02-06 10:34 | NUR ---
SW following. Discussed with RN, pt from home with , 2L oxygen (does not use at home), regular diet. Pt awaiting oncology to see her, and awaiting result from testing. Pt requested to see SW, SW met with pt (no isolation precautions at the time). Pt advised she had gone to the social security office when she turned 63 to get Medicare Part A, however the worker there told her she didn't need it because she is still working. Pt wondering how to get Medicare Part A, SW advised pt to contact Medicare. Pt wondering about home health, she thinks she does not need it when she leaves the hospital but then didn't know what to do when she does need it. SW advised pt to call her PCP when she feels she needs home health and they can arrange from the office. Pt denied any further SW needs. SW will continue to follow.
[2020-02-06 11:00] VITALS: BP 100/57
[2020-02-06 15:00] VITALS: BP 111/61
--- NOTE | 2020-02-06 16:10 | PATHOLOGY ---
Note [facility] Accession Number: [id number] TESTS RESULT FLAG UNITS REF RANGE LAB Clinician Provided Cytology Information No. of containers..01 Other (Miscellaneous) Source: PERITONEAL FLUID DIAGNOSIS: 02 PERITONEAL FLUID NEGATIVE FOR MALIGNANT CELLS. SCANT CELLULARITY. RARE MESOTHELIAL CELLS AND FEW INFLAMMATORY CELLS PRESENT. THIS INTERPRETATION INCLUDES EVALUATION OF A CELL BLOCK. Signed out by: 02 Amaury Valdes MD, Pathologist NPI- [id number] Performed by: Celia Pedro, [facility] ([facility]) Gross description: 01 5ML, RED, 1 TP 1 CB /LCS 02/05/2020 1629 Local FLAG LEGEND: L-Low Normal,H-High Normal,LL-Alert Low,HH-Alert High <-Panic Low,>-Panic High,A-Abnormal,AA-Critical Abnormal Performed at: 01 [facility] [address] [place] [address] Tal Villanueva MD, [address] [facility] [address] [place] [address] Amaury Valdes MD, Specimen Comment: A courtesy copy of this report has been sent to [phone] Specimen Comment: [id number] Specimen Comment: Report sent to / DR SHULTZ Specimen Comment: A duplicate report has been generated due to demographic updates. Performed at: 01 [facility] [address], [place], [place] [id number] MD Tal Villanueva MD Phone: [phone]
--- NOTE | 2020-02-06 16:29 | PDOC ---
PROGRESS NOTES Date of Service: DATE: 02/06/20 TIME: 16:28 Chief Complaint Chief Complaint Pelvic mass (Suspicious for neoplasm) Backache abdominal discomfort Diabetes mellitus seems to be well controlled with no insulin History of UTIs Anxiety Depression Hypothyroidism Arthritis GERD Plan: Pathology reviewed with no evidence of malignant cells We will discuss with certified ophthalmic surgical assistant further recommendations based on results pain management History of Present Illness History of Present Illness 02/06/2020 No acute events reported overnight, case discussed with nursing staff patient in no acute distress no complaints during my visit 02/05/2020 No acute events reported overnight, case discussed with nursing staff patient in no acute distress no complaints during my visit 02/04/2020 Pt seen and examined. Pt has clean and dry intact dressing. Pt is talkative and in pleasant mood. 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 She presented as a transfer from [employer]. She has a pelvic mass. I discussed the case with the nurse, the patient and the ER physician. We are going to admit the patient. We are going to consult Dr. Pedro Pagan of the [facility] service and Oncology. Vitals Vitals Vital Signs Date Time Temp Pulse Resp B/P (MAP) Pulse Ox O2 Delivery O2 Flow Rate FiO2 02/06/20 15:00 98.3 90 20 111/61 (78) 90 Nasal Cannula 2.0 98.3 Physical Exam General: Alert, mild distress Heart: Regular rate, Normal S1, Normal S2 Lungs: Clear Abdomen: Soft, No tenderness Extremities: No clubbing, No cyanosis Skin: No rashes, No breakdown Labs LABS Laboratory Tests Test 02/06/20 07:33 White Blood Count 18.4 x10^3/uL (4.0-11.0) Red Blood Count 3.55 x10^6/uL (3.50-5.40) Hemoglobin 9.9 g/dL (12.0-15.5) Hematocrit 29.9 % (36.0-47.0) Mean Corpuscular Volume 84 fL (79-100) Mean Corpuscular Hemoglobin 28 pg (25-35) Mean Corpuscular Hemoglobin Concent 33 g/dL (31-37) Red Cell Distribution Width 14.8 % (11.5-14.5) Platelet Count 471 x10^3/uL (140-400) Neutrophils (%) (Auto) 82 % (31-73) Lymphocytes (%) (Auto) 11 % (24-48) Monocytes (%) (Auto) 5 % (0-9) Eosinophils (%) (Auto) 2 % (0-3) Basophils (%) (Auto) 0 % (0-3) Neutrophils # (Auto) 15.0 x10^3/uL (1.8-7.7) Lymphocytes # (Auto) 2.0 x10^3/uL (1.0-4.8) Monocytes # (Auto) 0.9 x10^3/uL (0.0-1.1) Eosinophils # (Auto) 0.3 x10^3/uL (0.0-0.7) Basophils # (Auto) 0.1 x10^3/uL (0.0-0.2) Sodium Level 140 mmol/L (136-145) Potassium Level 4.2 mmol/L (3.5-5.1) Chloride Level 103 mmol/L (98-107) Carbon Dioxide Level 35 mmol/L (21-32) Anion Gap 2 (6-14) Blood Urea Nitrogen 7 mg/dL (7-20) Creatinine 0.6 mg/dL (0.6-1.0) Estimated GFR (Cockcroft-Gault) 100.0 Glucose Level 98 mg/dL (70-99) Calcium Level 8.5 mg/dL (8.5-10.1) Comment Review of Relevant I have reviewed the following items angela (where applicable) has been applied. Labs Laboratory Tests Test 02/05/20 07:40 02/06/20 07:33 White Blood Count 20.2 x10^3/uL (4.0-11.0) 18.4 x10^3/uL (4.0-11.0) Red Blood Count 3.88 x10^6/uL (3.50-5.40) 3.55 x10^6/uL (3.50-5.40) Hemoglobin 11.0 g/dL (12.0-15.5) 9.9 g/dL (12.0-15.5) Hematocrit 32.9 % (36.0-47.0) 29.9 % (36.0-47.0) Mean Corpuscular Volume 85 fL (79-100) 84 fL (79-100) Mean Corpuscular Hemoglobin 28 pg (25-35) 28 pg (25-35) Mean Corpuscular Hemoglobin Concent 33 g/dL (31-37) 33 g/dL (31-37) Red Cell Distribution Width 15.2 % (11.5-14.5) 14.8 % (11.5-14.5) Platelet Count 513 x10^3/uL (140-400) 471 x10^3/uL (140-400) Neutrophils (%) (Auto) 82 % (31-73) 82 % (31-73) Lymphocytes (%) (Auto) 11 % (24-48) 11 % (24-48) Monocytes (%) (Auto) 5 % (0-9) 5 % (0-9) Eosinophils (%) (Auto) 1 % (0-3) 2 % (0-3) Basophils (%) (Auto) 0 % (0-3) 0 % (0-3) Neutrophils # (Auto) 16.6 x10^3/uL (1.8-7.7) 15.0 x10^3/uL (1.8-7.7) Lymphocytes # (Auto) 2.3 x10^3/uL (1.0-4.8) 2.0 x10^3/uL (1.0-4.8) Monocytes # (Auto) 1.0 x10^3/uL (0.0-1.1) 0.9 x10^3/uL (0.0-1.1) Eosinophils # (Auto) 0.3 x10^3/uL (0.0-0.7) 0.3 x10^3/uL (0.0-0.7) Basophils # (Auto) 0.0 x10^3/uL (0.0-0.2) 0.1 x10^3/uL (0.0-0.2) Sodium Level 140 mmol/L (136-145) 140 mmol/L (136-145) Potassium Level 3.8 mmol/L (3.5-5.1) 4.2 mmol/L (3.5-5.1) Chloride Level 101 mmol/L (98-107) 103 mmol/L (98-107) Carbon Dioxide Level 34 mmol/L (21-32) 35 mmol/L (21-32) Anion Gap 5 (6-14) 2 (6-14) Blood Urea Nitrogen 7 mg/dL (7-20) 7 mg/dL (7-20) Creatinine 0.7 mg/dL (0.6-1.0) 0.6 mg/dL (0.6-1.0) Estimated GFR (Cockcroft-Gault) 83.7 100.0 Glucose Level 104 mg/dL (70-99) 98 mg/dL (70-99) Calcium Level 8.8 mg/dL (8.5-10.1) 8.5 mg/dL (8.5-10.1) Laboratory Tests Test 02/06/20 07:33 White Blood Count 18.4 x10^3/uL (4.0-11.0) Red Blood Count 3.55 x10^6/uL (3.50-5.40) Hemoglobin 9.9 g/dL (12.0-15.5) Hematocrit 29.9 % (36.0-47.0) Mean Corpuscular Volume 84 fL (79-100) Mean Corpuscular Hemoglobin 28 pg (25-35) Mean Corpuscular Hemoglobin Concent 33 g/dL (31-37) Red Cell Distribution Width 14.8 % (11.5-14.5) Platelet Count 471 x10^3/uL (140-400) Neutrophils (%) (Auto) 82 % (31-73) Lymphocytes (%) (Auto) 11 % (24-48) Monocytes (%) (Auto) 5 % (0-9) Eosinophils (%) (Auto) 2 % (0-3) Basophils (%) (Auto) 0 % (0-3) Neutrophils # (Auto) 15.0 x10^3/uL (1.8-7.7) Lymphocytes # (Auto) 2.0 x10^3/uL (1.0-4.8) Monocytes # (Auto) 0.9 x10^3/uL (0.0-1.1) Eosinophils # (Auto) 0.3 x10^3/uL (0.0-0.7) Basophils # (Auto) 0.1 x10^3/uL (0.0-0.2) Sodium Level 140 mmol/L (136-145) Potassium Level 4.2 mmol/L (3.5-5.1) Chloride Level 103 mmol/L (98-107) Carbon Dioxide Level 35 mmol/L (21-32) Anion Gap 2 (6-14) Blood Urea Nitrogen 7 mg/dL (7-20) Creatinine 0.6 mg/dL (0.6-1.0) Estimated GFR (Cockcroft-Gault) 100.0 Glucose Level 98 mg/dL (70-99) Calcium Level 8.5 mg/dL (8.5-10.1) Microbiology 02/04/20 Blood Culture - Preliminary, Resulted NO GROWTH AFTER 2 DAYS Medications Current Medications Acetaminophen/ Hydrocodone Bitart (Lortab 5/325) 1 tab PRN Q4HRS PRN PO MODERATE TO SEVERE PAIN Last administered on 02/06/20at 12:40; Start 02/03/20 at 11:15 Acetaminophen (Tylenol) 650 mg PRN Q6HRS PRN PO MILD PAIN / TEMP > 100.3'F; Start 02/03/20 at 11:15 Sodium Chloride 1,000 ml @ 75 mls/hr [id number] IV Last administered on 02/06/20at 08:51; Start 02/03/20 at 12:45 Ondansetron HCl (Zofran) 4 mg PRN Q6HRS PRN IV NAUSEA/VOMITING; Start 02/03/20 at 15:15; Stop 02/03/20 at 19:28; Status DC Fentanyl Citrate (Fentanyl 2ml Vial) 25 mcg PRN Q5MIN PRN IV MILD PAIN 1-3; Start 02/03/20 at 15:15; Stop 02/04/20 at 15:14; Status DC Fentanyl Citrate (Fentanyl 2ml Vial) 50 mcg PRN Q5MIN PRN IV MODERATE TO SEVERE PAIN Last administered on 02/04/20at 13:38; Start 02/03/20 at 15:15; Stop 02/04/20 at 15:14; Status DC Morphine Sulfate (Morphine Sulfate) 1 mg PRN Q10MIN PRN IV SEVERE PAIN 7-10 Last administered on 02/03/20at 17:30; Start 02/03/20 at 15:15; Stop 02/04/20 at 15:14; Status DC Ringer's Solution 1,000 ml @ 30 mls/hr Q24H IV Last administered on 02/03/20at 15:15; Start 02/03/20 at 15:15; Stop 02/04/20 at 03:14; Status DC Hydromorphone HCl (Dilaudid) 0.5 mg PRN Q10MIN PRN IV SEV PAIN, Second choice; Start 02/03/20 at 15:15; Stop 02/04/20 at 15:14; Status DC Prochlorperazine Edisylate (Compazine) 5 mg PACU PRN PRN IV NAUSEA, MRX1; Start 02/03/20 at 15:15; Stop 02/04/20 at 15:14; Status DC Rocuronium [place] (Zemuron) 50 mg STK-MED ONCE .ROUTE ; Start 02/03/20 at 15:47; Stop 02/03/20 at 15:47; Status DC Fentanyl Citrate (Fentanyl 5ml Vial) 250 mcg STK-MED ONCE .ROUTE ; Start 02/03/20 at 15:47; Stop 02/03/20 at 15:47; Status DC Cefazolin Sodium (Ancef) 1 gm STK-MED ONCE IVP ; Start 02/03/20 at 16:01; Stop 02/03/20 at 16:02; Status DC Cefazolin Sodium (Ancef) 1 gm STK-MED ONCE IVP ; Start 02/03/20 at 16:01; Stop 02/03/20 at 16:02; Status DC Propofol (Diprivan) 200 mg STK-MED ONCE IV ; Start 02/03/20 at 16:29; Stop 02/03/20 at 16:29; Status DC Lidocaine HCl (Lidocaine Pf 2% Vial) 5 ml STK-MED ONCE .ROUTE ; Start 02/03/20 at 16:29; Stop 02/03/20 at 16:29; Status DC Ondansetron HCl (Zofran) 4 mg STK-MED ONCE .ROUTE ; Start 02/03/20 at 16:29; Stop 02/03/20 at 16:29; Status DC Dexamethasone Sodium Phosphate (Decadron) 4 mg STK-MED ONCE .ROUTE ; Start 02/03/20 at 16:29; Stop 02/03/20 at 16:29; Status DC Sevoflurane (Ultane) 30 ml STK-MED ONCE IH ; Start 02/03/20 at 16:29; Stop at 16:29; Status DC Neostigmine [place] (Neostigmine Methylsulfate) 5 mg STK-MED ONCE .ROUTE ; Start 02/03/20 at 16:30; Stop 02/03/20 at 16:30; Status DC Glycopyrrolate (Robinul) 1 mg STK-MED ONCE .ROUTE ; Start 02/03/20 at 16:30; Stop 02/03/20 at 16:31; Status DC Morphine Sulfate (Morphine Sulfate) 2 mg STK-MED ONCE .ROUTE ; Start 02/03/20 at 17:19; Stop 02/03/20 at 17:19; Status DC Morphine Sulfate (Morphine Sulfate) 2 mg PRN Q2HR PRN IV MODERATE PAIN Last administered on 02/06/20at 08:55; Start 02/03/20 at 19:15 Fentanyl Citrate (Fentanyl 2ml Vial) 50 mcg PRN Q2HR PRN IVP SEVERE PAIN Last administered on 02/04/20at 22:39; Start 02/03/20 at 19:15 Ondansetron HCl (Zofran) 4 mg PRN Q6HRS PRN IVP NAUSEA/VOMITING Last administered on 02/05/20at 13:07; Start 02/03/20 at 19:30 Alprazolam (Xanax) 0.5 mg PRN TID PRN PO ANXIETY / AGITATION Last administered on 02/05/20at 23:32; Start 02/03/20 at 20:30 Divalproex Sodium (Depakote) 250 mg BID PO Last administered on 02/06/20at 08:50; Start 02/03/20 at 21:00 Levothyroxine Sodium (Synthroid) 88 mcg DAILYAC PO Last administered on 02/06/20at 06:22; Start 02/04/20 at 07:30 Bupropion HCl (Wellbutrin Sr) 150 mg BID PO Last administered on 02/06/20at 08:50; Start 02/03/20 at 21:00 Calcium/Vitamin D (Oscal D 500mg/ 200uts) 1 tab DAILY PO Last administered on 02/06/20at 08:51; Start 02/04/20 at 09:00 Duloxetine HCl (Cymbalta) 60 mg DAILY PO Last administered on 02/06/20 08:50; Start 02/04/20 at 09:00 Ibuprofen (Motrin) 800 mg PRN Q8HRS PRN PO INFLAMMATION Last administered on 02/06/20 08:50; Start 02/03/20 at 20:45 Cetirizine HCl (ZyrTEC) 10 mg DAILY PO Last administered on 02/06/20 08:50; Start 02/04/20 at 09:00 Multivitamins (Thera M Plus) 1 tab DAILY PO Last administered on 02/06/20 08:50; Start 02/04/20 at 09:00 Pantoprazole Sodium (Protonix) 40 mg DAILYAC PO Last administered on 02/06/20 06:22; Start 02/04/20 at 07:30 Non-Formulary Medication (Potassium Gluconate ) 500 mg DAILY PO ; Start 02/04/20 at 09:00; Status UNV Docusate Sodium (Colace) 100 mg BID PO Last administered on 02/06/20 08:50; Start 02/05/20 at 21:00 Polyethylene Glycol (miraLAX PACKET) 17 gm PRN DAILY PRN PO CONSTIPATION 1ST CHOICE Last administered on 02/05/20at 21:34; Start 02/05/20 at 21:15 Glycerin/ Hypromellose/ Polyethylene (Artificial Tears) 1 drop PRN Q15MIN PRN OU DRY EYE Last administered on 02/06/20at 00:15; Start 02/06/20 at 00:00 Active Scripts Active Reported Ibuprofen 800 Mg Tablet 800 Mg PO PRN Q8HRS PRN Divalproex Sodium 500 Mg Tablet.dr 250 Mg PO BID Bupropion Hcl Sr (Bupropion Hcl) 150 Mg Tablet.er 150 Mg PO BID Levothyroxine Sodium 88 Mcg Tablet 88 Mcg PO DAILYAC Omeprazole 20 Mg Capsule.dr 1 Cap PO BID Loratadine 10 Mg Tab.rapdis 1 Tab PO DAILY 30 Days Calcium 500 mg-Vit D3 600 Unit (Calcium Carbonate/Vitamin D3) 1 Each Tablet 1 Tab PO DAILY 30 Days Alprazolam 0.5 Mg Tablet 1 Tab PO TID PRN Thera-M Caplet (Multivit,Ther Iron,Ca,Fa & Min) 1 Each Tablet 1 Tab PO DAILY 30 Days Potassium Gluconate 500 Mg Tablet 500 Mg PO DAILY Cymbalta (Duloxetine Hcl) 60 Mg Capsule. 1 Cap PO DAILY Vitals/I & O Vital Sign - Last 24 Hours 02/05/20 02/05/20 02/05/20 02/05/20 19:00 20:00 20:34 21:38 Temp 98.4 98.4 Pulse 98 Resp 18 16 14 B/P (MAP) 112/55 (74) Pulse Ox 93 O2 Delivery Room Air Room Air Room Air Room Air 02/05/20 02/06/20 02/06/20 02/06/20 23:11 02:18 02:58 03:20 Temp 99.6 99.6 99.6 99.6 Pulse 94 89 Resp 20 16 18 14 B/P (MAP) 115/70 (85) 131/71 (91) Pulse Ox 98 98 95 95 O2 Delivery Room Air Nasal Cannula Room Air Nasal Cannula O2 Flow Rate 2.0 2.0 02/06/20 02/06/20 02/06/20 02/06/20 06:23 07:00 07:25 08:25 Temp 98.5 98.5 Pulse 87 Resp 14 20 14 B/P (MAP) 112/61 (78) Pulse Ox 95 96 95 O2 Delivery Nasal Cannula Nasal Cannula Room Air Room Air O2 Flow Rate 2.0 2.0 2.0 02/06/20 02/06/20 02/06/20 02/06/20 08:55 11:00 12:06 12:40 Temp 97.9 97.9 Pulse 85 Resp 20 B/P (MAP) 100/57 (71) Pulse Ox 95 98 98 O2 Delivery Room Air Nasal Cannula Room Air Room Air O2 Flow Rate 2.0 2.0 2.0 02/06/20 02/06/20 14:35 15:00 Temp 98.3 98.3 Pulse 90 Resp 20 B/P (MAP) 111/61 (78) Pulse Ox 98 90 O2 Delivery Nasal Cannula Nasal Cannula O2 Flow Rate 2.0 2.0 Intake and Output 02/05/20 02/05/20 02/06/20 15:00 23:00 07:00 Intake Total 120 ml 400 ml 2000 ml Balance 120 ml 400 ml 2000 ml Justicifation of Admission Dx: Justifications for Admission: Justification of Admission Dx: Comment: MARVIN HIGUERA MD Feb 06, 2020 16:29
[2020-02-06] MEDS: POLYETHYLENE GLYCOL 3350 17 GM PACKET. PO PRN (17:47)
[2020-02-06 19:00] VITALS: BP 120/63
[2020-02-06] MEDS: ALPRAZolam 0.5 MG TABLET PO PRN (22:34)
[2020-02-06 23:00] VITALS: BP 122/64
[2020-02-07] MEDS: MORPHINE SULFATE 2 MG/ML VIAL. IV PRN ×4 (01:07→23:00)
[2020-02-07 03:00] VITALS: BP 122/64
[2020-02-07] MEDS: IV NORMAL SALINE 1000ML BAG 1,000 ML IV SCH (03:03)
[2020-02-07] MEDS: HYDROcodone/APAP 5/325MG 1 TAB TABLET PO PRN ×4 (06:23→20:19)
[2020-02-07 07:00] VITALS: BP 123/73
[2020-02-07] MEDS: PANTOPRAZOLE 40 MG TABLET.DR. PO SCH (08:08)
[2020-02-07] MEDS: LEVOTHYROXINE 88 MCG TABLET PO SCH (08:08)
[2020-02-07 08:54] LABS: BASO % 0 % (0-3); EOS # 0.3 x10^3/uL (0.0-0.7); EOS % 2 % (0-3); HEMATOCRIT 31.7 % (36.0-47.0); HEMOGLOBIN 10.5 g/dL (12.0-15.5); LYMPH # 1.8 x10^3/uL (1.0-4.8); LYMPH % 11 % (24-48); MEAN CORPUSCULAR HEMOGLOBIN 28 pg (25-35); MEAN CORPUSCULAR HGB CONC 33 g/dL (31-37); MEAN CORPUSCULAR VOLUME 85 fL (79-100); MONO # 0.6 x10^3/uL (0.0-1.1); MONO % 4 % (0-9); NEUT # 13.2 x10^3/uL (1.8-7.7); NEUT % 83 % (31-73); PLATELET COUNT 531 x10^3/uL (140-400); RED BLOOD COUNT 3.73 x10^6/uL (3.50-5.40); WHITE BLOOD COUNT 15.9 x10^3/uL (4.0-11.0)
[2020-02-07 08:57] LABS: CREATININE 0.6 mg/dL (0.6-1.0)
[2020-02-07] MEDS: DIVALPROEX DELAYED RELEASE 250 MG TABLET.DR. PO SCH ×2 (09:31→21:02)
[2020-02-07] MEDS: DULoxetine HCL 30 MG CAPSULE.DR PO SCH (09:31)
[2020-02-07] MEDS: DOCUSATE SODIUM 100 MG CAPSULE. PO SCH ×2 (09:31→21:02)
[2020-02-07] MEDS: CETIRIZINE HCL 10 MG TABLET. PO SCH (09:32)
[2020-02-07] MEDS: buPROPion SR 150 MG TABLET.SA PO SCH ×2 (09:32→21:02)
[2020-02-07] MEDS: MULTIVITAMIN with MINERAL TABLET. PO SCH (09:32)
[2020-02-07] MEDS: CALCIUM CARB/VIT D3 500/200 TABLET. PO SCH (09:32)
--- NOTE | 2020-02-07 09:35 | PDOC2 ---
CONSULT Date of Consult Date of Consult DATE: 02/07/20 TIME: 09:27 Reason for Consult Reason for Consult: Pelvic mass Referring Physician Referring Physician: Dr. Burnette Identification/Chief Complaint Chief Complaint Pelvic mass and abdominal pain Source Source: Chart review, Patient History of Present Illness Reason for Visit: Ethel Gonzáles is a 64-year-old female who has been admitted to the hospital for evaluation of her pelvic mass that was recently noted on a pelvic ultrasound. She reports associated abdominal pain. She was seen by [facility] and received a diagnostic laparotomy on 02/11/2020 which showed "large" mass on top of the uterus which was adherent to adjacent structures, extending onto the bladder as well as the lateral abdominal wall. Peritoneal fluid was noted and was sampled and cytology has returned negative. Oncology consultation has been sought in view of suspected malignancy to direct further evaluation. Current Medications Current Medications Current Medications Acetaminophen/ Hydrocodone Bitart (Lortab 5/325) 1 tab PRN Q4HRS PRN PO MODERATE TO SEVERE PAIN Last administered on 02/07/20at 06:23; Start 02/03/20 at 11:15 Acetaminophen (Tylenol) 650 mg PRN Q6HRS PRN PO MILD PAIN / TEMP > 100.3'F; Start 02/03/20 at 11:15 Sodium Chloride 1,000 ml @ 75 mls/hr [id number] IV Last administered on 02/07/20at 03:03; Start 02/03/20 at 12:45 Ondansetron HCl (Zofran) 4 mg PRN Q6HRS PRN IV NAUSEA/VOMITING; Start 02/03/20 at 15:15; Stop 02/03/20 at 19:28; Status DC Fentanyl Citrate (Fentanyl 2ml Vial) 25 mcg PRN Q5MIN PRN IV MILD PAIN 1-3; Start 02/03/20 at 15:15; Stop 02/04/20 at 15:14; Status DC Fentanyl Citrate (Fentanyl 2ml Vial) 50 mcg PRN Q5MIN PRN IV MODERATE TO SEVERE PAIN Last administered on 02/04/20at 13:38; Start 02/03/20 at 15:15; Stop 02/04/20 at 15:14; Status DC Morphine Sulfate (Morphine Sulfate) 1 mg PRN Q10MIN PRN IV SEVERE PAIN 7-10 Last administered on 02/03/20at 17:30; Start 02/03/20 at 15:15; Stop 02/04/20 at 15:14; Status DC Ringer's Solution 1,000 ml @ 30 mls/hr Q24H IV Last administered on 02/03/20at 15:15; Start 02/03/20 at 15:15; Stop 02/04/20 at 03:14; Status DC Hydromorphone HCl (Dilaudid) 0.5 mg PRN Q10MIN PRN IV SEV PAIN, Second choice; Start 02/03/20 at 15:15; Stop 02/04/20 at 15:14; Status DC Prochlorperazine Edisylate (Compazine) 5 mg PACU PRN PRN IV NAUSEA, MRX1; Start 02/03/20 at 15:15; Stop 02/04/20 at 15:14; Status DC Rocuronium Barry (Zemuron) 50 mg STK-MED ONCE .ROUTE ; Start 02/03/20 at 15:47; Stop 02/03/20 at 15:47; Status DC Fentanyl Citrate (Fentanyl 5ml Vial) 250 mcg STK-MED ONCE .ROUTE ; Start 02/03/20 at 15:47; Stop 02/03/20 at 15:47; Status DC Cefazolin Sodium (Ancef) 1 gm STK-MED ONCE IVP ; Start 02/03/20 at 16:01; Stop 02/03/20 at 16:02; Status DC Cefazolin Sodium (Ancef) 1 gm STK-MED ONCE IVP ; Start 02/03/20 at 16:01; Stop 02/03/20 at 16:02; Status DC Propofol (Diprivan) 200 mg STK-MED ONCE IV ; Start 02/03/20 at 16:29; Stop 02/03/20 at 16:29; Status DC Lidocaine HCl (Lidocaine Pf 2% Vial) 5 ml STK-MED ONCE .ROUTE ; Start 02/03/20 at 16:29; Stop 02/03/20 at 16:29; Status DC Ondansetron HCl (Zofran) 4 mg STK-MED ONCE .ROUTE ; Start 02/03/20 at 16:29; Stop 02/03/20 at 16:29; Status DC Dexamethasone Sodium Phosphate (Decadron) 4 mg STK-MED ONCE .ROUTE ; Start 02/03/20 at 16:29; Stop 02/03/20 at 16:29; Status DC Sevoflurane (Ultane) 30 ml STK-MED ONCE IH ; Start 02/03/20 at 16:29; Stop 02/03/20 at 16:29; Status DC Neostigmine Barry (Neostigmine Methylsulfate) 5 mg STK-MED ONCE .ROUTE ; Start 02/03/20 at 16:30; Stop 02/03/20 at 16:30; Status DC Glycopyrrolate (Robinul) 1 mg STK-MED ONCE .ROUTE ; Start 02/03/20 at 16:30; Stop 02/03/20 at 16:31; Status DC Morphine Sulfate (Morphine Sulfate) 2 mg STK-MED ONCE .ROUTE ; Start 02/03/20 a t 17:19; Stop 02/03/20 at 17:19; Status DC Morphine Sulfate (Morphine Sulfate) 2 mg PRN Q2HR PRN IV MODERATE PAIN Last administered on 02/07/20at 03:06; Start 02/03/20 at 19:15 Fentanyl Citrate (Fentanyl 2ml Vial) 50 mcg PRN Q2HR PRN IVP SEVERE PAIN Last administered on 02/04/20at 22:39; Start 02/03/20 at 19:15 Ondansetron HCl (Zofran) 4 mg PRN Q6HRS PRN IVP NAUSEA/VOMITING Last administered on 02/05/20at 13:07; Start 02/03/20 at 19:30 Alprazolam (Xanax) 0.5 mg PRN TID PRN PO ANXIETY / AGITATION Last administered on 02/06/20at 22:34; Start 02/03/20 at 20:30 Divalproex Sodium (Depakote) 250 mg BID PO Last administered on 02/06/20at 20:47; Start 02/03/20 at 21:00 Levothyroxine Sodium (Synthroid) 88 mcg DAILYAC PO Last administered on 02/07/20at 08:08; Start 02/04/20 at 07:30 Bupropion HCl (Wellbutrin Sr) 150 mg BID PO Last administered on 02/06/20at 20:47; Start 02/03/20 at 21:00 Calcium/Vitamin D (Oscal D 500mg/ 200uts) 1 tab DAILY PO Last administered on 02/06/20 08:51; Start 02/04/20 at 09:00 Duloxetine HCl (Cymbalta) 60 mg DAILY PO Last administered on 02/06/20 08:50; Start 02/04/20 at 09:00 Ibuprofen (Motrin) 800 mg PRN Q8HRS PRN PO INFLAMMATION Last administered on 02/06/20 08:50; Start 02/03/20 at 20:45 Cetirizine HCl (ZyrTEC) 10 mg DAILY PO Last administered on 02/06/20 08:50; Start 02/04/20 at 09:00 Multivitamins (Thera M Plus) 1 tab DAILY PO Last administered on 02/06/20 08:50; Start 02/04/20 at 09:00 Pantoprazole Sodium (Protonix) 40 mg DAILYAC PO Last administered on 02/07/20 08:08; Start 02/04/20 at 07:30 Non-Formulary Medication (Potassium Gluconate ) 500 mg DAILY PO ; Start 02/04/20 at 09:00; Status UNV Docusate Sodium (Colace) 100 mg BID PO Last administered on 02/06/20 20:47; Start 02/05/20 at 21:00 Polyethylene Glycol (miraLAX PACKET) 17 gm PRN DAILY PRN PO CONSTIPATION 1ST CHOICE Last administered on 02/06/20 17:47; Start 02/05/20 at 21:15 Glycerin/ Hypromellose/ Polyethylene (Artificial Tears) 1 drop PRN Q15MIN PRN OU DRY EYE Last administered on 02/06/20 00:15; Start 02/06/20 at 00:00 Active Scripts Active Reported Ibuprofen 800 Mg Tablet 800 Mg PO PRN Q8HRS PRN Divalproex Sodium 500 Mg Tablet.dr 250 Mg PO BID Bupropion Hcl Sr (Bupropion Hcl) 150 Mg Tablet.er 150 Mg PO BID Levothyroxine Sodium 88 Mcg Tablet 88 Mcg PO DAILYAC Omeprazole 20 Mg Capsule.dr 1 Cap PO BID Loratadine 10 Mg Tab.rapdis 1 Tab PO DAILY 30 Days Calcium 500 mg-Vit D3 600 Unit (Calcium Carbonate/Vitamin D3) 1 Each Tablet 1 Tab PO DAILY 30 Days Alprazolam 0.5 Mg Tablet 1 Tab PO TID PRN Thera-M Caplet (Multivit,Ther Iron,Ca,Fa & Min) 1 Each Tablet 1 Tab PO DAILY 30 Days Potassium Gluconate 500 Mg Tablet 500 Mg PO DAILY Cymbalta (Duloxetine Hcl) 60 Mg Capsule.dr 1 Cap PO DAILY Allergies Allergies: Coded Allergies: Latex, Natural Rubber (Verified Allergy, Intermediate, "bad rash", 02/03/20) fexofenadine (Verified Allergy, Mild, Anxiety, 02/03/20) The decongestant makes me really "wired" ROS General: No: Fatigue, Malaise PSYCHOLOGICAL ROS: No: Hallucinations, Hostility Eyes: No Eye Pain, No Itchy Eyes HEENT: No: Oral lesions, Sinus pain ALLERGY AND IMMUNOLOGY: No: Nasal Congestion, Post Nasal Drip Hematological and Lymphatic: No: Brusing, Night Sweats ENDOCRINE: No: Malaise/lethargy, Mood Swings Breast: No Nipple discharge Respiratory: No: Shortness of breath, SOB with excertion Cardiovascular: No Paroxysmal Noc. Dyspnea, No Edema Gastrointestinal: No Diarrhea, No Constipation Genitourinary: No Urgency, No Pain Musculoskeletal: No Joint Swelling, No Muscle Pain Neurological: No Headaches, No Impaired Coord/balance Skin: No Mole Changes, No Mottling Physical Exam General: Alert, Oriented X3 HEENT: Atraumatic, PERRLA Lungs: Clear to auscultation Heart: Regular rate, Normal S1, Normal S2 Abdomen: Normal bowel sounds Extremities: No clubbing Skin: No rashes, No breakdown Neuro: Normal gait MUSCULOSKELETAL: No swelling Vitals VITALS Vital Signs Date Time Temp Pulse Resp B/P (MAP) Pulse Ox O2 Delivery O2 Flow Rate FiO2 02/07/20 08:07 Room Air 02/07/20 07:00 98.5 96 18 123/73 (90) 93 98.5 02/07/20 06:23 2.0 Labs Labs Laboratory Tests Test 02/06/20 07:33 02/07/20 07:54 White Blood Count 18.4 x10^3/uL (4.0-11.0) 15.9 x10^3/uL (4.0-11.0) Red Blood Count 3.55 x10^6/uL (3.50-5.40) 3.73 x10^6/uL (3.50-5.40) Hemoglobin 9.9 g/dL (12.0-15.5) 10.5 g/dL (12.0-15.5) Hematocrit 29.9 % (36.0-47.0) 31.7 % (36.0-47.0) Mean Corpuscular Volume 84 fL (79-100) 85 fL (79-100) Mean Corpuscular Hemoglobin 28 pg (25-35) 28 pg (25-35) Mean Corpuscular Hemoglobin Concent 33 g/dL (31-37) 33 g/dL (31-37) Red Cell Distribution Width 14.8 % (11.5-14.5) 15.0 % (11.5-14.5) Platelet Count 471 x10^3/uL (140-400) 531 x10^3/uL (140-400) Neutrophils (%) (Auto) 82 % (31-73) 83 % (31-73) Lymphocytes (%) (Auto) 11 % (24-48) 11 % (24-48) Monocytes (%) (Auto) 5 % (0-9) 4 % (0-9) Eosinophils (%) (Auto) 2 % (0-3) 2 % (0-3) Basophils (%) (Auto) 0 % (0-3) 0 % (0-3) Neutrophils # (Auto) 15.0 x10^3/uL (1.8-7.7) 13.2 x10^3/uL (1.8-7.7) Lymphocytes # (Auto) 2.0 x10^3/uL (1.0-4.8) 1.8 x10^3/uL (1.0-4.8) Monocytes # (Auto) 0.9 x10^3/uL (0.0-1.1) 0.6 x10^3/uL (0.0-1.1) Eosinophils # (Auto) 0.3 x10^3/uL (0.0-0.7) 0.3 x10^3/uL (0.0-0.7) Basophils # (Auto) 0.1 x10^3/uL (0.0-0.2) 0.0 x10^3/uL (0.0-0.2) Sodium Level 140 mmol/L (136-145) 141 mmol/L (136-145) Potassium Level 4.2 mmol/L (3.5-5.1) 4.0 mmol/L (3.5-5.1) Chloride Level 103 mmol/L (98-107) 101 mmol/L (98-107) Carbon Dioxide Level 35 mmol/L (21-32) 33 mmol/L (21-32) Anion Gap 2 (6-14) 7 (6-14) Blood Urea Nitrogen 7 mg/dL (7-20) 8 mg/dL (7-20) Creatinine 0.6 mg/dL (0.6-1.0) 0.6 mg/dL (0.6-1.0) Estimated GFR (Cockcroft-Gault) 100.0 100.0 Glucose Level 98 mg/dL (70-99) 94 mg/dL (70-99) Calcium Level 8.5 mg/dL (8.5-10.1) 9.0 mg/dL (8.5-10.1) Iron Level 25 ug/dL (50-170) Total Iron Binding Capacity 185 ug/dL (250-450) Iron Saturation 14 % (15-34) Ferritin 315 ng/mL (8-252) Laboratory Tests Test 02/07/20 07:54 White Blood Count 15.9 x10^3/uL (4.0-11.0) Red Blood Count 3.73 x10^6/uL (3.50-5.40) Hemoglobin 10.5 g/dL (12.0-15.5) Hematocrit 31.7 % (36.0-47.0) Mean Corpuscular Volume 85 fL (79-100) Mean Corpuscular Hemoglobin 28 pg (25-35) Mean Corpuscular Hemoglobin Concent 33 g/dL (31-37) Red Cell Distribution Width 15.0 % (11.5-14.5) Platelet Count 531 x10^3/uL (140-400) Neutrophils (%) (Auto) 83 % (31-73) Lymphocytes (%) (Auto) 11 % (24-48) Monocytes (%) (Auto) 4 % (0-9) Eosinophils (%) (Auto) 2 % (0-3) Basophils (%) (Auto) 0 % (0-3) Neutrophils # (Auto) 13.2 x10^3/uL (1.8-7.7) Lymphocytes # (Auto) 1.8 x10^3/uL (1.0-4.8) Monocytes # (Auto) 0.6 x10^3/uL (0.0-1.1) Eosinophils # (Auto) 0.3 x10^3/uL (0.0-0.7) Basophils # (Auto) 0.0 x10^3/uL (0.0-0.2) Sodium Level 141 mmol/L (136-145) Potassium Level 4.0 mmol/L (3.5-5.1) Chloride Level 101 mmol/L (98-107) Carbon Dioxide Level 33 mmol/L (21-32) Anion Gap 7 (6-14) Blood Urea Nitrogen 8 mg/dL (7-20) Creatinine 0.6 mg/dL (0.6-1.0) Estimated GFR (Cockcroft-Gault) 100.0 Glucose Level 94 mg/dL (70-99) Calcium Level 9.0 mg/dL (8.5-10.1) Iron Level 25 ug/dL (50-170) Total Iron Binding Capacity 185 ug/dL (250-450) Iron Saturation 14 % (15-34) Ferritin 315 ng/mL (8-252) Images Images CT abdomen and pelvis with contrast, obtained 02/03/2020 at [facility]: 1. Large intrapelvic mass that is intimate with multiple abdominal pelvic structures to include the right ovary uterus loops of bowel and mesentery. Differential considerations include) related fibroid, right ovarian lesion, small bowel GIST or mesenteric mass. Recommend correlation with prior imaging. If no imaging is available, consider contrast-enhanced MRI of the pelvis. This mass measures 11.2 x 10.6 x 11.6 cm Assessment/Plan Assessment/Plan Assessment: Pelvic mass Normocytic anemia Diabetes mellitus type 2 Low back pain, acute on chronic Recommendations: -Noted results of cytology which are negative for malignancy -Recommend pelvic MRI with and without contrast for additional pelvic imaging and characterization of this pelvic mass and to identify ideal modality for biopsy -Can consider CT of the chest -Recommend surgical consultation and discussion with -Check iron studies, B12 and reticulocyte count for evaluation of anemia -We will obtain CEA, CA 19-9 and CA-125 Marlo Ledbetter MD Medical Oncology/Hematology Ph: [phone] CHUNG LEDBETTER MD Feb 07, 2020 09:35
--- NOTE | 2020-02-07 10:15 | NUR ---
SW following. Discussed with RN, pt from home with . Oncology recommending MRI and surgical consult. Pt declined need for SW related services upon discharge. SW will continue to follow.
[2020-02-07 11:00] VITALS: BP 130/78
[2020-02-07] MEDS ORDERED: GADOTERATE 7.5 MMOL/15ML VIAL. IVP ONE (11:45)
[2020-02-07 15:00] VITALS: BP 136/78
--- NOTE | 2020-02-07 15:41 | PDOC ---
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 She presented as a transfer from [employer]. She has a pelvic mass. I discussed the case with the nurse, the patient and the ER physician. We are going to admit the patient. We are going to consult Dr. Pedro Pagan of the [employer] service and Oncology. 02/04/2020 Pt seen and examined. Pt has clean and dry intact dressing. Pt is talkative and in pleasant mood. 02/05/2020 No acute events reported overnight, case discussed with nursing staff patient in no acute distress no complaints during my visit 02/06/2020 No acute events reported overnight, case discussed with nursing staff patient in no acute distress no complaints during my visit 02/07/2020 Patient seems to be stable, pain seems to be well controlled, patient was seen in consultation by oncology awaiting results from MRI. Reassurance provided no complaints during my visit Vitals Vitals Vital Signs Date Time Temp Pulse Resp B/P (MAP) Pulse Ox O2 Delivery O2 Flow Rate FiO2 02/07/20 15:14 Room Air 02/07/20 15:00 97.9 98 18 136/78 (97) 90 2.0 97.9 Physical Exam General: Alert, Oriented X3 Heart: Regular rate, Normal S1, Normal S2 Lungs: Clear Abdomen: Normal bowel sounds Extremities: No clubbing Skin: No rashes, No breakdown Labs LABS Laboratory Tests Test 02/07/20 07:54 White Blood Count 15.9 x10^3/uL (4.0-11.0) Red Blood Count 3.72 x10^6/uL (3.50-5.70) Hemoglobin 10.5 g/dL (12.0-15.5) Hematocrit 31.7 % (36.0-47.0) Mean Corpuscular Volume 85 fL (79-100) Mean Corpuscular Hemoglobin 28 pg (25-35) Mean Corpuscular Hemoglobin Concent 33 g/dL (31-37) Red Cell Distribution Width 15.0 % (11.5-14.5) Platelet Count 531 x10^3/uL (140-400) Neutrophils (%) (Auto) 83 % (31-73) Lymphocytes (%) (Auto) 11 % (24-48) Monocytes (%) (Auto) 4 % (0-9) Eosinophils (%) (Auto) 2 % (0-3) Basophils (%) (Auto) 0 % (0-3) Neutrophils # (Auto) 13.2 x10^3/uL (1.8-7.7) Lymphocytes # (Auto) 1.8 x10^3/uL (1.0-4.8) Monocytes # (Auto) 0.6 x10^3/uL (0.0-1.1) Eosinophils # (Auto) 0.3 x10^3/uL (0.0-0.7) Basophils # (Auto) 0.0 x10^3/uL (0.0-0.2) Absolute Reticulocyte Count 0.043 x10^6/uL (0.020-0.120) Percent Reticulocyte Count 1.2 % (0.5-2.3) Immature Reticulocyte Fraction 0.49 (0.20-0.60) Sodium Level 141 mmol/L (136-145) Potassium Level 4.0 mmol/L (3.5-5.1) Chloride Level 101 mmol/L (98-107) Carbon Dioxide Level 33 mmol/L (21-32) Anion Gap 7 (6-14) Blood Urea Nitrogen 8 mg/dL (7-20) Creatinine 0.6 mg/dL (0.6-1.0) Estimated GFR (Cockcroft-Gault) 100.0 Glucose Level 94 mg/dL (70-99) Calcium Level 9.0 mg/dL (8.5-10.1) Iron Level 25 ug/dL (50-170) Total Iron Binding Capacity 185 ug/dL (250-450) Iron Saturation 14 % (15-34) Ferritin 315 ng/mL (8-252) Vitamin B12 Level 1157 pg/mL (247-911) Comment Review of Relevant I have reviewed the following items angela (where applicable) has been applied. Labs Laboratory Tests Test 02/06/20 07:33 02/07/20 07:54 White Blood Count 18.4 x10^3/uL (4.0-11.0) 15.9 x10^3/uL (4.0-11.0) Red Blood Count 3.55 x10^6/uL (3.50-5.40) 3.72 x10^6/uL (3.50-5.70) Hemoglobin 9.9 g/dL (12.0-15.5) 10.5 g/dL (12.0-15.5) Hematocrit 29.9 % (36.0-47.0) 31.7 % (36.0-47.0) Mean Corpuscular Volume 84 fL (79-100) 85 fL (79-100) Mean Corpuscular Hemoglobin 28 pg (25-35) 28 pg (25-35) Mean Corpuscular Hemoglobin Concent 33 g/dL (31-37) 33 g/dL (31-37) Red Cell Distribution Width 14.8 % (11.5-14.5) 15.0 % (11.5-14.5) Platelet Count 471 x10^3/uL (140-400) 531 x10^3/uL (140-400) Neutrophils (%) (Auto) 82 % (31-73) 83 % (31-73) Lymphocytes (%) (Auto) 11 % (24-48) 11 % (24-48) Monocytes (%) (Auto) 5 % (0-9) 4 % (0-9) Eosinophils (%) (Auto) 2 % (0-3) 2 % (0-3) Basophils (%) (Auto) 0 % (0-3) 0 % (0-3) Neutrophils # (Auto) 15.0 x10^3/uL (1.8-7.7) 13.2 x10^3/uL (1.8-7.7) Lymphocytes # (Auto) 2.0 x10^3/uL (1.0-4.8) 1.8 x10^3/uL (1.0-4.8) Monocytes # (Auto) 0.9 x10^3/uL (0.0-1.1) 0.6 x10^3/uL (0.0-1.1) Eosinophils # (Auto) 0.3 x10^3/uL (0.0-0.7) 0.3 x10^3/uL (0.0-0.7) Basophils # (Auto) 0.1 x10^3/uL (0.0-0.2) 0.0 x10^3/uL (0.0-0.2) Sodium Level 140 mmol/L (136-145) 141 mmol/L (136-145) Potassium Level 4.2 mmol/L (3.5-5.1) 4.0 mmol/L (3.5-5.1) Chloride Level 103 mmol/L (98-107) 101 mmol/L (98-107) Carbon Dioxide Level 35 mmol/L (21-32) 33 mmol/L (21-32) Anion Gap 2 (6-14) 7 (6-14) Blood Urea Nitrogen 7 mg/dL (7-20) 8 mg/dL (7-20) Creatinine 0.6 mg/dL (0.6-1.0) 0.6 mg/dL (0.6-1.0) Estimated GFR (Cockcroft-Gault) 100.0 100.0 Glucose Level 98 mg/dL (70-99) 94 mg/dL (70-99) Calcium Level 8.5 mg/dL (8.5-10.1) 9.0 mg/dL (8.5-10.1) Absolute Reticulocyte Count 0.043 x10^6/uL (0.020-0.120) Percent Reticulocyte Count 1.2 % (0.5-2.3) Immature Reticulocyte Fraction 0.49 (0.20-0.60) Iron Level 25 ug/dL (50-170) Total Iron Binding Capacity 185 ug/dL (250-450) Iron Saturation 14 % (15-34) Ferritin 315 ng/mL (8-252) Vitamin B12 Level 1157 pg/mL (247-911) Laboratory Tests Test 02/07/20 07:54 White Blood Count 15.9 x10^3/uL (4.0-11.0) Red Blood Count 3.72 x10^6/uL (3.50-5.70) Hemoglobin 10.5 g/dL (12.0-15.5) Hematocrit 31.7 % (36.0-47.0) Mean Corpuscular Volume 85 fL (79-100) Mean Corpuscular Hemoglobin 28 pg (25-35) Mean Corpuscular Hemoglobin Concent 33 g/dL (31-37) Red Cell Distribution Width 15.0 % (11.5-14.5) Platelet Count 531 x10^3/uL (140-400) Neutrophils (%) (Auto) 83 % (31-73) Lymphocytes (%) (Auto) 11 % (24-48) Monocytes (%) (Auto) 4 % (0-9) Eosinophils (%) (Auto) 2 % (0-3) Basophils (%) (Auto) 0 % (0-3) Neutrophils # (Auto) 13.2 x10^3/uL (1.8-7.7) Lymphocytes # (Auto) 1.8 x10^3/uL (1.0-4.8) Monocytes # (Auto) 0.6 x10^3/uL (0.0-1.1) Eosinophils # (Auto) 0.3 x10^3/uL (0.0-0.7) Basophils # (Auto) 0.0 x10^3/uL (0.0-0.2) Absolute Reticulocyte Count 0.043 x10^6/uL (0.020-0.120) Percent Reticulocyte Count 1.2 % (0.5-2.3) Immature Reticulocyte Fraction 0.49 (0.20-0.60) Sodium Level 141 mmol/L (136-145) Potassium Level 4.0 mmol/L (3.5-5.1) Chloride Level 101 mmol/L (98-107) Carbon Dioxide Level 33 mmol/L (21-32) Anion Gap 7 (6-14) Blood Urea Nitrogen 8 mg/dL (7-20) Creatinine 0.6 mg/dL (0.6-1.0) Estimated GFR (Cockcroft-Gault) 100.0 Glucose Level 94 mg/dL (70-99) Calcium Level 9.0 mg/dL (8.5-10.1) Iron Level 25 ug/dL (50-170) Total Iron Binding Capacity 185 ug/dL (250-450) Iron Saturation 14 % (15-34) Ferritin 315 ng/mL (8-252) Vitamin B12 Level 1157 pg/mL (247-911) Microbiology 11/22/20 Blood Culture - Preliminary, Resulted NO GROWTH AFTER 3 DAYS Medications Current Medications Acetaminophen/ Hydrocodone Bitart (Lortab 5/325) 1 tab PRN Q4HRS PRN PO MODERATE TO SEVERE PAIN Last administered on 02/07/20at 15:14; Start 02/03/20 at 11:15 Acetaminophen (Tylenol) 650 mg PRN Q6HRS PRN PO MILD PAIN / TEMP > 100.3'F; Start 02/03/20 at 11:15 Sodium Chloride 1,000 ml @ 75 mls/hr [id number] IV Last administered on 02/07/20at 03:03; Start 02/03/20 at 12:45 Ondansetron HCl (Zofran) 4 mg PRN Q6HRS PRN IV NAUSEA/VOMITING; Start 02/03/20 at 15:15; Stop 02/03/20 at 19:28; Status DC Fentanyl Citrate (Fentanyl 2ml Vial) 25 mcg PRN Q5MIN PRN IV MILD PAIN 1-3; Start 02/03/20 at 15:15; Stop 02/04/20 at 15:14; Status DC Fentanyl Citrate (Fentanyl 2ml Vial) 50 mcg PRN Q5MIN PRN IV MODERATE TO SEVERE PAIN Last administered on 02/04/20at 13:38; Start 02/03/20 at 15:15; Stop 02/04/20 at 15:14; Status DC Morphine Sulfate (Morphine Sulfate) 1 mg PRN Q10MIN PRN IV SEVERE PAIN 7-10 Last administered on 02/03/20at 17:30; Start 02/03/20 at 15:15; Stop 02/04/20 at 15:14; Status DC Ringer's Solution 1,000 ml @ 30 mls/hr Q24H IV Last administered on 02/03/20at 15:15; Start 02/03/20 at 15:15; Stop 02/04/20 at 03:14; Status DC Hydromorphone HCl (Dilaudid) 0.5 mg PRN Q10MIN PRN IV SEV PAIN, Second choice; Start 02/03/20 at 15:15; Stop 02/04/20 at 15:14; Status DC Prochlorperazine Edisylate (Compazine) 5 mg PACU PRN PRN IV NAUSEA, MRX1; Start 02/03/20 at 15:15; Stop 02/04/20 at 15:14; Status DC Rocuronium [place] (Zemuron) 50 mg STK-MED ONCE .ROUTE ; Start 02/03/20 at 15:47; Stop 02/03/20 at 15:47; Status DC Fentanyl Citrate (Fentanyl 5ml Vial) 250 mcg STK-MED ONCE .ROUTE ; Start 02/03/20 at 15:47; Stop 02/03/20 at 15:47; Status DC Cefazolin Sodium (Ancef) 1 gm STK-MED ONCE IVP ; Start 02/03/20 at 16:01; Stop 02/03/20 at 16:02; Status DC Cefazolin Sodium (Ancef) 1 gm STK-MED ONCE IVP ; Start 02/03/20 at 16:01; Stop 02/03/20 at 16:02; Status DC Propofol (Diprivan) 200 mg STK-MED ONCE IV ; Start 02/03/20 at 16:29; Stop 02/03/20 at 16:29; Status DC Lidocaine HCl (Lidocaine Pf 2% Vial) 5 ml STK-MED ONCE .ROUTE ; Start 02/03/20 at 16:29; Stop 02/03/20 at 16:29; Status DC Ondansetron HCl (Zofran) 4 mg STK-MED ONCE .ROUTE ; Start 02/03/20 at 16:29; Stop 02/03/20 at 16:29; Status DC Dexamethasone Sodium Phosphate (Decadron) 4 mg STK-MED ONCE .ROUTE ; Start 02/03/20 at 16:29; Stop 02/03/20 at 16:29; Status DC Sevoflurane (Ultane) 30 ml STK-MED ONCE IH ; Start 02/03/20 at 16:29; Stop 02/03/20 at 16:29; Status DC Neostigmine [place] (Neostigmine Methylsulfate) 5 mg STK-MED ONCE .ROUTE ; Start 02/03/20 at 16:30; Stop 02/03/20 at 16:30; Status DC Glycopyrrolate (Robinul) 1 mg STK-MED ONCE .ROUTE ; Start 02/03/20 at 16:30; Stop 02/03/20 at 16:31; Status DC Morphine Sulfate (Morphine Sulfate) 2 mg STK-MED ONCE .ROUTE ; Start 02/03/20 at 17:19; Stop 02/03/20 at 17:19; Status DC Morphine Sulfate (Morphine Sulfate) 2 mg PRN Q2HR PRN IV MODERATE PAIN Last administered on 02/07/20 03:06; Start 02/03/20 at 19:15 Fentanyl Citrate (Fentanyl 2ml Vial) 50 mcg PRN Q2HR PRN IVP SEVERE PAIN Last administered on 02/04/20 22:39; Start 02/03/20 at 19:15 Ondansetron HCl (Zofran) 4 mg PRN Q6HRS PRN IVP NAUSEA/VOMITING Last administered on 02/05/20 13:07; Start 02/03/20 at 19:30 Alprazolam (Xanax) 0.5 mg PRN TID PRN PO ANXIETY / AGITATION Last administered on 02/06/20 22:34; Start 02/03/20 at 20:30 Divalproex Sodium (Depakote) 250 mg BID PO Last administered on 02/07/20 09:31; Start 02/03/20 at 21:00 Levothyroxine Sodium (Synthroid) 88 mcg DAILYAC PO Last administered on 02/07/20 08:08; Start 02/04/20 at 07:30 Bupropion HCl (Wellbutrin Sr) 150 mg BID PO Last administered on 02/07/20 09:32; Start 02/03/20 at 21:00 Calcium/Vitamin D (Oscal D 500mg/ 200uts) 1 tab DAILY PO Last administered on 02/07/20 09:32; Start 02/04/20 at 09:00 Duloxetine HCl (Cymbalta) 60 mg DAILY PO Last administered on 02/07/20 09:31; Start 02/04/20 at 09:00 Ibuprofen (Motrin) 800 mg PRN Q8HRS PRN PO INFLAMMATION Last administered on 02/06/20 08:50; Start 02/03/20 at 20:45 Cetirizine HCl (ZyrTEC) 10 mg DAILY PO Last administered on 02/07/20 09:32; Start 02/04/20 at 09:00 Multivitamins (Thera M Plus) 1 tab DAILY PO Last administered on 11/25/20at 09:32; Start 02/04/20 at 09:00 Pantoprazole Sodium (Protonix) 40 mg DAILYAC PO Last administered on 02/07/20at 08:08; Start 02/04/20 at 07:30 Non-Formulary Medication (Potassium Gluconate ) 500 mg DAILY PO ; Start 02/04/20 at 09:00; Status UNV Docusate Sodium (Colace) 100 mg BID PO Last administered on 02/07/20at 09:31; Start 02/05/20 at 21:00 Polyethylene Glycol (miraLAX PACKET) 17 gm PRN DAILY PRN PO CONSTIPATION 1ST CHOICE Last administered on 02/06/20at 17:47; Start 02/05/20 at 21:15 Glycerin/ Hypromellose/ Polyethylene (Artificial Tears) 1 drop PRN Q15MIN PRN OU DRY EYE Last administered on 02/06/20at 00:15; Start 02/06/20 at 00:00 Gadoterate Meglumine (Clariscan) 15 ml 1X ONCE IVP Last administered on 02/07/20at 12:06; Start 02/07/20 at 11:45; Stop 02/07/20 at 11:46; Status DC Active Scripts Active Reported Ibuprofen 800 Mg Tablet 800 Mg PO PRN Q8HRS PRN Divalproex Sodium 500 Mg Tablet.dr 250 Mg PO BID Bupropion Hcl Sr (Bupropion Hcl) 150 Mg Tablet.er 150 Mg PO BID Levothyroxine Sodium 88 Mcg Tablet 88 Mcg PO DAILYAC Omeprazole 20 Mg Capsule.dr 1 Cap PO BID Loratadine 10 Mg Tab.rapdis 1 Tab PO DAILY 30 Days Calcium 500 mg-Vit D3 600 Unit (Calcium Carbonate/Vitamin D3) 1 Each Tablet 1 Tab PO DAILY 30 Days Alprazolam 0.5 Mg Tablet 1 Tab PO TID PRN Thera-M Caplet (Multivit,Ther Iron,Ca,Fa & Min) 1 Each Tablet 1 Tab PO DAILY 30 Days Potassium Gluconate 500 Mg Tablet 500 Mg PO DAILY Cymbalta (Duloxetine Hcl) 60 Mg Capsule. 1 Cap PO DAILY Vitals/I & O Vital Sign - Last 24 Hours 02/06/20 02/06/20 02/06/20 02/06/20 17:43 18:49 19:00 21:23 Temp 99.6 99.6 Pulse 92 Resp 18 B/P (MAP) 120/63 (82) Pulse Ox 90 90 97 O2 Delivery Room Air Room Air Room Air O2 Flow Rate 2.0 02/06/20 02/06/20 02/06/20 02/07/20 22:28 23:00 23:30 01:07 Temp 98.4 98.4 Pulse 94 Resp 18 18 B/P (MAP) 122/64 (83) Pulse Ox 97 99 99 99 O2 Delivery Room Air Room Air Room Air O2 Flow Rate 2.0 2.0 2.0 02/07/20 02/07/20 02/07/20 02/07/20 01:40 03:00 03:06 03:45 Temp 98.2 98.2 Pulse 93 Resp 18 16 18 18 B/P (MAP) 122/64 (83) Pulse Ox 99 98 99 99 O2 Delivery Room Air Room Air Room Air O2 Flow Rate 2.0 2.0 2.0 02/07/20 02/07/20 02/07/20 02/07/20 06:23 07:00 08:00 08:07 Temp 98.5 98.5 Pulse 96 Resp 18 18 B/P (MAP) 123/73 (90) Pulse Ox 99 93 O2 Delivery Room Air Room Air Room Air Room Air O2 Flow Rate 2.0 2.0 02/07/20 02/07/20 02/07/20 02/07/20 10:54 11:00 12:49 15:00 Temp 98.0 97.9 98.0 97.9 Pulse 96 98 Resp 18 18 B/P (MAP) 130/78 (95) 136/78 (97) Pulse Ox 90 90 90 O2 Delivery Room Air Nasal Cannula Room Air Nasal Cannula O2 Flow Rate 2.0 2.0 2.0 02/07/20 15:14 O2 Delivery Room Air Intake and Output 02/06/20 02/06/20 02/07/20 14:59 22:59 06:59 Intake Total 560 ml 315 ml 120 ml Balance 560 ml 315 ml 120 ml Justicifation of Admission Dx: Justifications for Admission: Justification of Admission Dx: Comment: MARVIN HIGUERA MD Feb 07, 2020 15:41
--- NOTE | 2020-02-07 17:11 | RAD ---
EXAM: MRI pelvis with and without contrast. HISTORY: Pelvic mass. TECHNIQUE: MRI of the pelvis was performed before and after the intravenous administration of gadolinium contrast. COMPARISON: None available. FINDINGS: There are significant limitations from motion artifact. The examination remains diagnostic for the following. A large solid mass in the false pelvis measures 11.4 x 11.2 x 10.9 cm. It is T2 hyperintense and enhances heterogeneously. Large regions of nonenhancement may reflect necrosis. The organ of origin is unclear. It does not appear to arise from the uterus. The left ovary appears atrophic but the left adnexa is separately visualized. The mass appears to have pedicle that extends to the right, suggesting the right adnexa as a site of origin. There is no clear encasement of vascular structures or involvement of other organs by this technique, though sensitivity is decreased by motion artifact. There is a small amount of pelvic ascites. The endometrial stripe is thin at 3 mm. The uterus is slightly anteverted to neutral. The uterine junctional zone measures 6 mm. Edema is noted throughout the lower anterior abdominal wall subcutaneous and muscular compartments, suggesting recent surgery. There is no drainable collection. IMPRESSION: 1. An 11 cm solid mass within the midline false pelvis may arise from the right adnexa but this is unclear. Considerations include ovarian malignancy, versus an adnexal fibroid or other mesenchymal tumor such as a sarcoma. Surgical consultation is recommended. 2. Comparison with CT is recommended for further anatomic detail, as sensitivity on this examination is limited by motion artifact. 3. Small ascites. 4. Edema throughout the anterior abdominal wall inferiorly. Correlate surgery or other causes. Electronically signed by: Kathia Fuentes MD (02/07/2020 5:08 PM) [id number]
[2020-02-07 19:00] VITALS: BP 130/67
[2020-02-07 19:09] LABS: CA 125 233.3 U/mL (0.0-38.1)
[2020-02-07] MEDS: ALPRAZolam 0.5 MG TABLET PO PRN (21:02)
[2020-02-07 23:00] VITALS: BP 121/68
[2020-02-08] MEDS: HYDROcodone/APAP 5/325MG 1 TAB TABLET PO PRN ×5 (00:51→21:20)
[2020-02-08] MEDS: IV NORMAL SALINE 1000ML BAG 1,000 ML IV SCH ×2 (05:16→20:10)
[2020-02-08 05:45] LABS: BASO # 0.1 x10^3/uL (0.0-0.2); BASO % 0 % (0-3); EOS # 0.3 x10^3/uL (0.0-0.7); EOS % 2 % (0-3); HEMATOCRIT 29.9 % (36.0-47.0); HEMOGLOBIN 9.7 g/dL (12.0-15.5); LYMPH # 2.2 x10^3/uL (1.0-4.8); LYMPH % 14 % (24-48); MEAN CORPUSCULAR HEMOGLOBIN 27 pg (25-35); MEAN CORPUSCULAR HGB CONC 32 g/dL (31-37); MEAN CORPUSCULAR VOLUME 84 fL (79-100); MONO # 0.8 x10^3/uL (0.0-1.1); MONO % 5 % (0-9); NEUT # 12.5 x10^3/uL (1.8-7.7); NEUT % 79 % (31-73); PLATELET COUNT 524 x10^3/uL (140-400); RED BLOOD COUNT 3.55 x10^6/uL (3.50-5.40); RED CELL DISTRIBUTION WIDTH 14.9 % (11.5-14.5); WHITE BLOOD COUNT 15.8 x10^3/uL (4.0-11.0)
[2020-02-08 06:03] LABS: CALCIUM 8.9 mg/dL (8.5-10.1); CREATININE 0.6 mg/dL (0.6-1.0); POTASSIUM 4.7 mmol/L (3.5-5.1)
[2020-02-08 07:00] VITALS: BP 135/70
[2020-02-08] MEDS: CALCIUM CARB/VIT D3 500/200 TABLET. PO SCH (08:16)
[2020-02-08] MEDS: DULoxetine HCL 30 MG CAPSULE.DR PO SCH (08:16)
[2020-02-08] MEDS: buPROPion SR 150 MG TABLET.SA PO SCH ×2 (08:16→20:10)
[2020-02-08] MEDS: MULTIVITAMIN with MINERAL TABLET. PO SCH (08:16)
[2020-02-08] MEDS: DIVALPROEX DELAYED RELEASE 250 MG TABLET.DR. PO SCH ×2 (08:17→20:10)
[2020-02-08] MEDS: LEVOTHYROXINE 88 MCG TABLET PO SCH (08:17)
[2020-02-08] MEDS: PANTOPRAZOLE 40 MG TABLET.DR. PO SCH (08:17)
[2020-02-08] MEDS: CETIRIZINE HCL 10 MG TABLET. PO SCH (08:17)
[2020-02-08] MEDS: DOCUSATE SODIUM 100 MG CAPSULE. PO SCH ×2 (08:17→20:10)
[2020-02-08] MEDS: fentaNYL PF VIAL 100 MCG/2 ML VIAL IVP PRN ×3 (08:21→22:42)
[2020-02-08 11:00] VITALS: BP_SYST 116; BP_DIAS 46; BP_DIAS 62
[2020-02-08 15:00] VITALS: BP 120/57
--- NOTE | 2020-02-08 15:14 | PDOC ---
PROGRESS NOTES Date of Service: DATE: 02/08/20 TIME: 15:13 Chief Complaint Chief Complaint Pelvic mass (Suspicious for neoplasm) Backache abdominal discomfort Diabetes mellitus seems to be well controlled with no insulin History of UTIs Anxiety Depression Hypothyroidism Arthritis GERD Plan: Pathology reviewed with no evidence of malignant cells We will discuss with surgical product sales consultant regarding next step in management, laparoscopic prcedure vs percutaneous biospsy further recommendations based on results pain management History of Present Illness History of Present Illness HISTORY OF PRESENT ILLNESS: The patient is a pleasant middle-aged 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 She presented as a transfer from [employer]. She has a pelvic mass. I discussed the case with the nurse, the patient and the ER physician. We are going to admit the patient. We are going to consult Dr. Pedro Pagan of the MUNICIPAL [employer]INTE[employer]CE WORKER service and Oncology. 02/04/2020 Pt seen and examined. Pt has clean and dry intact dressing. Pt is talkative and in pleasant mood. 02/05/2020 No acute events reported overnight, case discussed with nursing staff patient in no acute distress no complaints during my visit 02/06/2020 No acute events reported overnight, case discussed with nursing staff patient in no acute distress no complaints during my visit 02/07/2020 Patient seems to be stable, pain seems to be well controlled, patient was seen in consultation by oncology awaiting results from MRI. Reassurance provided no complaints during my visit Vitals Vitals Vital Signs Date Time Temp Pulse Resp B/P (MAP) Pulse Ox O2 Delivery O2 Flow Rate FiO2 02/08/20 12:47 Room Air 02/08/20 11:00 98.2 93 18 116/62 (80) 94 98.2 02/07/20 23:00 2.0 Physical Exam General: Alert, Oriented X3 Heart: Regular rate, Normal S1, Normal S2 Lungs: Clear Abdomen: Normal bowel sounds Extremities: No clubbing Skin: No rashes, No breakdown Labs LABS Laboratory Tests Test 02/08/20 03:50 White Blood Count 15.8 x10^3/uL (4.0-11.0) Red Blood Count 3.55 x10^6/uL (3.50-5.40) Hemoglobin 9.7 g/dL (12.0-15.5) Hematocrit 29.9 % (36.0-47.0) Mean Corpuscular Volume 84 fL (79-100) Mean Corpuscular Hemoglobin 27 pg (25-35) Mean Corpuscular Hemoglobin Concent 32 g/dL (31-37) Red Cell Distribution Width 14.9 % (11.5-14.5) Platelet Count 524 x10^3/uL (140-400) Neutrophils (%) (Auto) 79 % (31-73) Lymphocytes (%) (Auto) 14 % (24-48) Monocytes (%) (Auto) 5 % (0-9) Eosinophils (%) (Auto) 2 % (0-3) Basophils (%) (Auto) 0 % (0-3) Neutrophils # (Auto) 12.5 x10^3/uL (1.8-7.7) Lymphocytes # (Auto) 2.2 x10^3/uL (1.0-4.8) Monocytes # (Auto) 0.8 x10^3/uL (0.0-1.1) Eosinophils # (Auto) 0.3 x10^3/uL (0.0-0.7) Basophils # (Auto) 0.1 x10^3/uL (0.0-0.2) Sodium Level 142 mmol/L (136-145) Potassium Level 4.7 mmol/L (3.5-5.1) Chloride Level 103 mmol/L (98-107) Carbon Dioxide Level 33 mmol/L (21-32) Anion Gap 6 (6-14) Blood Urea Nitrogen 8 mg/dL (7-20) Creatinine 0.6 mg/dL (0.6-1.0) Estimated GFR (Cockcroft-Gault) 100.0 Glucose Level 85 mg/dL (70-99) Calcium Level 8.9 mg/dL (8.5-10.1) Comment Review of Relevant I have reviewed the following items angela (where applicable) has been applied. Labs Laboratory Tests Test 02/07/20 07:54 02/08/20 03:50 White Blood Count 15.9 x10^3/uL (4.0-11.0) 15.8 x10^3/uL (4.0-11.0) Red Blood Count 3.72 x10^6/uL (3.50-5.70) 3.55 x10^6/uL (3.50-5.40) Hemoglobin 10.5 g/dL (12.0-15.5) 9.7 g/dL (12.0-15.5) Hematocrit 31.7 % (36.0-47.0) 29.9 % (36.0-47.0) Mean Corpuscular Volume 85 fL (79-100) 84 fL (79-100) Mean Corpuscular Hemoglobin 28 pg (25-35) 27 pg (25-35) Mean Corpuscular Hemoglobin Concent 33 g/dL (31-37) 32 g/dL (31-37) Red Cell Distribution Width 15.0 % (11.5-14.5) 14.9 % (11.5-14.5) Platelet Count 531 x10^3/uL (140-400) 524 x10^3/uL (140-400) Neutrophils (%) (Auto) 83 % (31-73) 79 % (31-73) Lymphocytes (%) (Auto) 11 % (24-48) 14 % (24-48) Monocytes (%) (Auto) 4 % (0-9) 5 % (0-9) Eosinophils (%) (Auto) 2 % (0-3) 2 % (0-3) Basophils (%) (Auto) 0 % (0-3) 0 % (0-3) Neutrophils # (Auto) 13.2 x10^3/uL (1.8-7.7) 12.5 x10^3/uL (1.8-7.7) Lymphocytes # (Auto) 1.8 x10^3/uL (1.0-4.8) 2.2 x10^3/uL (1.0-4.8) Monocytes # (Auto) 0.6 x10^3/uL (0.0-1.1) 0.8 x10^3/uL (0.0-1.1) Eosinophils # (Auto) 0.3 x10^3/uL (0.0-0.7) 0.3 x10^3/uL (0.0-0.7) Basophils # (Auto) 0.0 x10^3/uL (0.0-0.2) 0.1 x10^3/uL (0.0-0.2) Absolute Reticulocyte Count 0.043 x10^6/uL (0.020-0.120) Percent Reticulocyte Count 1.2 % (0.5-2.3) Immature Reticulocyte Fraction 0.49 (0.20-0.60) Sodium Level 141 mmol/L (136-145) 142 mmol/L (136-145) Potassium Level 4.0 mmol/L (3.5-5.1) 4.7 mmol/L (3.5-5.1) Chloride Level 101 mmol/L (98-107) 103 mmol/L (98-107) Carbon Dioxide Level 33 mmol/L (21-32) 33 mmol/L (21-32) Anion Gap 7 (6-14) 6 (6-14) Blood Urea Nitrogen 8 mg/dL (7-20) 8 mg/dL (7-20) Creatinine 0.6 mg/dL (0.6-1.0) 0.6 mg/dL (0.6-1.0) Estimated GFR (Cockcroft-Gault) 100.0 100.0 Glucose Level 94 mg/dL (70-99) 85 mg/dL (70-99) Calcium Level 9.0 mg/dL (8.5-10.1) 8.9 mg/dL (8.5-10.1) Iron Level 25 ug/dL (50-170) Total Iron Binding Capacity 185 ug/dL (250-450) Iron Saturation 14 % (15-34) Ferritin 315 ng/mL (8-252) CA 125 Antigen 233.3 U/mL (0.0-38.1) Vitamin B12 Level 1157 pg/mL (247-911) Laboratory Tests Test 02/08/20 03:50 White Blood Count 15.8 x10^3/uL (4.0-11.0) Red Blood Count 3.55 x10^6/uL (3.50-5.40) Hemoglobin 9.7 g/dL (12.0-15.5) Hematocrit 29.9 % (36.0-47.0) Mean Corpuscular Volume 84 fL (79-100) Mean Corpuscular Hemoglobin 27 pg (25-35) Mean Corpuscular Hemoglobin Concent 32 g/dL (31-37) Red Cell Distribution Width 14.9 % (11.5-14.5) Platelet Count 524 x10^3/uL (140-400) Neutrophils (%) (Auto) 79 % (31-73) Lymphocytes (%) (Auto) 14 % (24-48) Monocytes (%) (Auto) 5 % (0-9) Eosinophils (%) (Auto) 2 % (0-3) Basophils (%) (Auto) 0 % (0-3) Neutrophils # (Auto) 12.5 x10^3/uL (1.8-7.7) Lymphocytes # (Auto) 2.2 x10^3/uL (1.0-4.8) Monocytes # (Auto) 0.8 x10^3/uL (0.0-1.1) Eosinophils # (Auto) 0.3 x10^3/uL (0.0-0.7) Basophils # (Auto) 0.1 x10^3/uL (0.0-0.2) Sodium Level 142 mmol/L (136-145) Potassium Level 4.7 mmol/L (3.5-5.1) Chloride Level 103 mmol/L (98-107) Carbon Dioxide Level 33 mmol/L (21-32) Anion Gap 6 (6-14) Blood Urea Nitrogen 8 mg/dL (7-20) Creatinine 0.6 mg/dL (0.6-1.0) Estimated GFR (Cockcroft-Gault) 100.0 Glucose Level 85 mg/dL (70-99) Calcium Level 8.9 mg/dL (8.5-10.1) Microbiology 02/04/20 Blood Culture - Preliminary, Resulted NO GROWTH AFTER 4 DAYS Medications Current Medications Acetaminophen/ Hydrocodone Bitart (Lortab 5/325) 1 tab PRN Q4HRS PRN PO MODERATE TO SEVERE PAIN Last administered on 02/08/20at 12:47; Start 02/03/20 at 11:15 Acetaminophen (Tylenol) 650 mg PRN Q6HRS PRN PO MILD PAIN / TEMP > 100.3'F; Start 02/03/20 at 11:15 Sodium Chloride 1,000 ml @ 75 mls/hr [id number] IV Last administered on 02/08/20at 05:16; Start 02/03/20 at 12:45 Ondansetron HCl (Zofran) 4 mg PRN Q6HRS PRN IV NAUSEA/VOMITING; Start 02/03/20 at 15:15; Stop 02/03/20 at 19:28; Status DC Fentanyl Citrate (Fentanyl 2ml Vial) 25 mcg PRN Q5MIN PRN IV MILD PAIN 1-3; Start 02/03/20 at 15:15; Stop 02/04/20 at 15:14; Status DC Fentanyl Citrate (Fentanyl 2ml Vial) 50 mcg PRN Q5MIN PRN IV MODERATE TO SEVERE PAIN Last administered on 02/04/20at 13:38; Start 02/03/20 at 15:15; Stop 02/04/20 at 15:14; Status DC Morphine Sulfate (Morphine Sulfate) 1 mg PRN Q10MIN PRN IV SEVERE PAIN 7-10 Last administered on 02/03/20at 17:30; Start 02/03/20 at 15:15; Stop 02/04/20 at 15:14; Status DC Ringer's Solution 1,000 ml @ 30 mls/hr Q24H IV Last administered on 02/03/20at 15:15; Start 02/03/20 at 15:15; Stop 02/04/20 at 03:14; Status DC Hydromorphone HCl (Dilaudid) 0.5 mg PRN Q10MIN PRN IV SEV PAIN, Second choice; Start 02/03/20 at 15:15; Stop 02/04/20 at 15:14; Status DC Prochlorperazine Edisylate (Compazine) 5 mg PACU PRN PRN IV NAUSEA, MRX1; Start 02/03/20 at 15:15; Stop 02/04/20 at 15:14; Status DC Rocuronium Elsie (Zemuron) 50 mg STK-MED ONCE .ROUTE ; Start 02/03/20 at 15:47; Stop 02/03/20 at 15:47; Status DC Fentanyl Citrate (Fentanyl 5ml Vial) 250 mcg STK-MED ONCE .ROUTE ; Start 02/03/20 at 15:47; Stop 02/03/20 at 15:47; Status DC Cefazolin Sodium (Ancef) 1 gm STK-MED ONCE IVP ; Start 02/03/20 at 16:01; Stop 02/03/20 at 16:02; Status DC Cefazolin Sodium (Ancef) 1 gm STK-MED ONCE IVP ; Start 02/03/20 at 16:01; Stop 02/03/20 at 16:02; Status DC Propofol (Diprivan) 200 mg STK-MED ONCE IV ; Start 02/03/20 at 16:29; Stop 02/03/20 at 16:29; Status DC Lidocaine HCl (Lidocaine Pf 2% Vial) 5 ml STK-MED ONCE .ROUTE ; Start 02/03/20 at 16:29; Stop 02/03/20 at 16:29; Status DC Ondansetron HCl (Zofran) 4 mg STK-MED ONCE .ROUTE ; Start 02/03/20 at 16:29; Stop 02/03/20 at 16:29; Status DC Dexamethasone Sodium Phosphate (Decadron) 4 mg STK-MED ONCE .ROUTE ; Start 02/03/20 at 16:29; Stop 02/03/20 at 16:29; Status DC Sevoflurane (Ultane) 30 ml STK-MED ONCE IH ; Start 02/03/20 at 16:29; Stop 02/03/20 at 16:29; Status DC Neostigmine Elsie (Neostigmine Methylsulfate) 5 mg STK-MED ONCE .ROUTE ; Start 02/03/20 at 16:30; Stop 02/03/20 at 16:30; Status DC Glycopyrrolate (Robinul) 1 mg STK-MED ONCE .ROUTE ; Start 02/03/20 at 16:30; Stop 02/03/20 at 16:31; Status DC Morphine Sulfate (Morphine Sulfate) 2 mg STK-MED ONCE .ROUTE ; Start 02/03/20 at 17:19; Stop 02/03/20 at 17:19; Status DC Morphine Sulfate (Morphine Sulfate) 2 mg PRN Q2HR PRN IV MODERATE PAIN Last administered on 02/07/20at 23:00; Start 02/03/20 at 19:15 Fentanyl Citrate (Fentanyl 2ml Vial) 50 mcg PRN Q2HR PRN IVP SEVERE PAIN Last administered on 02/08/20at 08:21; Start 02/03/20 at 19:15 Ondansetron HCl (Zofran) 4 mg PRN Q6HRS PRN IVP NAUSEA/VOMITING Last administered on 02/05/20at 13:07; Start 02/03/20 at 19:30 Alprazolam (Xanax) 0.5 mg PRN TID PRN PO ANXIETY / AGITATION Last administered on 02/07/20 21:02; Start 02/03/20 at 20:30 Divalproex Sodium (Depakote) 250 mg BID PO Last administered on 02/08/20 08:17; Start 02/03/20 at 21:00 Levothyroxine Sodium (Synthroid) 88 mcg DAILYAC PO Last administered on 02/08/20at 08:17; Start 02/04/20 at 07:30 Bupropion HCl (Wellbutrin Sr) 150 mg BID PO Last administered on 02/08/20 08:16; Start 02/03/20 at 21:00 Calcium/Vitamin D (Oscal D 500mg/ 200uts) 1 tab DAILY PO Last administered on 02/08/20 08:16; Start 02/04/20 at 09:00 Duloxetine HCl (Cymbalta) 60 mg DAILY PO Last administered on 02/08/20at 08:16; Start 02/04/20 at 09:00 Ibuprofen (Motrin) 800 mg PRN Q8HRS PRN PO INFLAMMATION Last administered on 02/06/20at 08:50; Start 02/03/20 at 20:45 Cetirizine HCl (ZyrTEC) 10 mg DAILY PO Last administered on 02/08/20 08:17; Start 02/04/20 at 09:00 Multivitamins (Thera M Plus) 1 tab DAILY PO Last administered on 02/08/20at 08:16; Start 02/04/20 at 09:00 Pantoprazole Sodium (Protonix) 40 mg DAILYAC PO Last administered on 02/08/20at 08:17; Start 02/04/20 at 07:30 Non-Formulary Medication (Potassium Gluconate ) 500 mg DAILY PO ; Start 02/04/20 at 09:00; Status UNV Docusate Sodium (Colace) 100 mg BID PO Last administered on 02/08/20 08:17; Start 02/05/20 at 21:00 Polyethylene Glycol (miraLAX PACKET) 17 gm PRN DAILY PRN PO CONSTIPATION 1ST CHOICE Last administered on 02/06/20at 17:47; Start 02/05/20 at 21:15 Glycerin/ Hypromellose/ Polyethylene (Artificial Tears) 1 drop PRN Q15MIN PRN OU DRY EYE Last administered on 02/06/20at 00:15; Start 02/06/20 at 00:00 Gadoterate Meglumine (Clariscan) 15 ml 1X ONCE IVP Last administered on 02/07/20at 12:06; Start 02/07/20 at 11:45; Stop 02/07/20 at 11:46; Status DC Active Scripts Active Reported Ibuprofen 800 Mg Tablet 800 Mg PO PRN Q8HRS PRN Divalproex Sodium 500 Mg Tablet.dr 250 Mg PO BID Bupropion Hcl Sr (Bupropion Hcl) 150 Mg Tablet.er 150 Mg PO BID Levothyroxine Sodium 88 Mcg Tablet 88 Mcg PO DAILYAC Omeprazole 20 Mg Capsule. 1 Cap PO BID Loratadine 10 Mg Tab.rapdis 1 Tab PO DAILY 30 Days Calcium 500 mg-Vit D3 600 Unit (Calcium Carbonate/Vitamin D3) 1 Each Tablet 1 Tab PO DAILY 30 Days Alprazolam 0.5 Mg Tablet 1 Tab PO TID PRN Thera-M Caplet (Multivit,Ther Iron,Ca,Fa & Min) 1 Each Tablet 1 Tab PO DAILY 30 Days Potassium Gluconate 500 Mg Tablet 500 Mg PO DAILY Cymbalta (Duloxetine Hcl) 60 Mg Capsule. 1 Cap PO DAILY Vitals/I & O Vital Sign - Last 24 Hours 02/07/20 02/07/20 02/07/20 02/07/20 15:14 16:28 19:00 20:19 Temp 98.2 98.2 Pulse 97 Resp 18 22 B/P (MAP) 130/67 (88) Pulse Ox 96 O2 Delivery Room Air Room Air Nasal Cannula Room Air O2 Flow Rate 2.0 02/07/20 02/07/20 02/07/20 02/07/20 21:07 21:40 23:00 23:00 Temp 99.2 99.2 Pulse 103 Resp 24 24 24 18 B/P (MAP) 121/68 (85) Pulse Ox 92 O2 Delivery Room Air Nasal Cannula O2 Flow Rate 2.0 02/07/20 02/08/20 02/08/20 02/08/20 23:30 00:51 07:00 07:48 Temp 97.8 97.8 Pulse 94 Resp 20 20 18 B/P (MAP) 135/70 (91) Pulse Ox 91 O2 Delivery Room Air Room Air Room Air 11/02/08/20 02/08/20 02/08/20 08:21 08:21 11:00 12:47 Temp 98.2 98.2 Pulse 93 Resp 18 B/P (MAP) 116/62 (80) Pulse Ox 94 O2 Delivery Room Air Room Air Room Air Room Air Intake and Output 02/07/20 02/07/20 02/08/20 15:00 23:00 07:00 Intake Total 540 ml 480 ml 524 ml Balance 540 ml 480 ml 524 ml Justicifation of Admission Dx: Justifications for Admission: Justification of Admission Dx: Comment: MARVIN HIGUERA MD Feb 08, 2020 15:14
[2020-02-08 19:06] VITALS: BP 120/69
[2020-02-08] MEDS: POLYETHYLENE GLYCOL 3350 17 GM PACKET. PO PRN (20:09)
[2020-02-08] MEDS: ALPRAZolam 0.5 MG TABLET PO PRN (22:42)
[2020-02-08 23:06] VITALS: BP 133/72
[2020-02-09] MEDS: IV NORMAL SALINE 1000ML BAG 1,000 ML IV SCH ×2 (02:05→12:55)
[2020-02-09] MEDS: HYDROcodone/APAP 5/325MG 1 TAB TABLET PO PRN ×5 (02:40→23:23)
[2020-02-09 02:55] VITALS: BP 145/68
[2020-02-09] MEDS: PANTOPRAZOLE 40 MG TABLET.DR. PO SCH (05:12)
[2020-02-09] MEDS: LEVOTHYROXINE 88 MCG TABLET PO SCH (05:12)
[2020-02-09] MEDS: fentaNYL PF VIAL 100 MCG/2 ML VIAL IVP PRN ×4 (05:13→21:32)
[2020-02-09 07:00] VITALS: BP 124/66
[2020-02-09 07:40] LABS: BASO # 0.1 x10^3/uL (0.0-0.2); BASO % 0 % (0-3); EOS # 0.3 x10^3/uL (0.0-0.7); EOS % 2 % (0-3); HEMATOCRIT 29.4 % (36.0-47.0); HEMOGLOBIN 9.5 g/dL (12.0-15.5); LYMPH % 13 % (24-48); MEAN CORPUSCULAR HEMOGLOBIN 27 pg (25-35); MEAN CORPUSCULAR HGB CONC 32 g/dL (31-37); MEAN CORPUSCULAR VOLUME 84 fL (79-100); MONO # 0.8 x10^3/uL (0.0-1.1); MONO % 5 % (0-9); NEUT % 79 % (31-73); PLATELET COUNT 536 x10^3/uL (140-400); RED BLOOD COUNT 3.51 x10^6/uL (3.50-5.40); RED CELL DISTRIBUTION WIDTH 14.3 % (11.5-14.5); WHITE BLOOD COUNT 15.2 x10^3/uL (4.0-11.0)
[2020-02-09 08:10] LABS: CALCIUM 8.8 mg/dL (8.5-10.1); CREATININE 0.7 mg/dL (0.6-1.0); GFR 83.7; POTASSIUM 4.4 mmol/L (3.5-5.1)
--- NOTE | 2020-02-09 09:05 | PDOC ---
PROGRESS NOTES Date of Service DATE: 02/09/20 TIME: 09:02 Subjective Subjective No overnight events. Waiting for surgical reevaluation Objective Objective Vital Signs Date Time Temp Pulse Resp B/P (MAP) Pulse Ox O2 Delivery O2 Flow Rate FiO2 02/09/20 07:19 16 Room Air 02/09/20 07:00 97.5 83 124/66 (85) 96 97.5 02/07/20 23:00 2.0 Intake and Output 02/09/20 07:00 Intake Total 5630 ml Balance 5630 ml Intake Oral 1630 ml IV Total 4000 ml # Voids 4 Physical Exam Abdomen: Normal bowel sounds Heart: Regular rate Extremities: No clubbing General: Alert, Oriented X3 HEENT: Atraumatic, PERRLA Lungs: Clear to auscultation MUSCULOSKELETAL: No joint tenderness, No swelling Neck: Supple, No JVD Neuro: Normal gait, Strength at 5/5 X4 ext Psych/Mental Status: Mental status NL Skin: No rashes Assessment Assessment Pelvic mass Normocytic anemia Diabetes mellitus type 2 Low back pain, acute on chronic Plan Plan of Care -Noted results of cytology which are negative for malignancy -Reviewed results of pelvic MRI with and without contrast -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 Labs Laboratory Tests Test 02/08/20 03:50 02/09/20 06:10 White Blood Count 15.8 x10^3/uL (4.0-11.0) 15.2 x10^3/uL (4.0-11.0) Red Blood Count 3.55 x10^6/uL (3.50-5.40) 3.51 x10^6/uL (3.50-5.40) Hemoglobin 9.7 g/dL (12.0-15.5) 9.5 g/dL (12.0-15.5) Hematocrit 29.9 % (36.0-47.0) 29.4 % (36.0-47.0) Mean Corpuscular Volume 84 fL (79-100) 84 fL (79-100) Mean Corpuscular Hemoglobin 27 pg (25-35) 27 pg (25-35) Mean Corpuscular Hemoglobin Concent 32 g/dL (31-37) 32 g/dL (31-37) Red Cell Distribution Width 14.9 % (11.5-14.5) 14.3 % (11.5-14.5) Platelet Count 524 x10^3/uL (140-400) 536 x10^3/uL (140-400) Neutrophils (%) (Auto) 79 % (31-73) 79 % (31-73) Lymphocytes (%) (Auto) 14 % (24-48) 13 % (24-48) Monocytes (%) (Auto) 5 % (0-9) 5 % (0-9) Eosinophils (%) (Auto) 2 % (0-3) 2 % (0-3) Basophils (%) (Auto) 0 % (0-3) 0 % (0-3) Neutrophils # (Auto) 12.5 x10^3/uL (1.8-7.7) 12.0 x10^3/uL (1.8-7.7) Lymphocytes # (Auto) 2.2 x10^3/uL (1.0-4.8) 2.0 x10^3/uL (1.0-4.8) Monocytes # (Auto) 0.8 x10^3/uL (0.0-1.1) 0.8 x10^3/uL (0.0-1.1) Eosinophils # (Auto) 0.3 x10^3/uL (0.0-0.7) 0.3 x10^3/uL (0.0-0.7) Basophils # (Auto) 0.1 x10^3/uL (0.0-0.2) 0.1 x10^3/uL (0.0-0.2) Sodium Level 142 mmol/L (136-145) 139 mmol/L (136-145) Potassium Level 4.7 mmol/L (3.5-5.1) 4.4 mmol/L (3.5-5.1) Chloride Level 103 mmol/L (98-107) 102 mmol/L (98-107) Carbon Dioxide Level 33 mmol/L (21-32) 32 mmol/L (21-32) Anion Gap 6 (6-14) 5 (6-14) Blood Urea Nitrogen 8 mg/dL (7-20) 11 mg/dL (7-20) Creatinine 0.6 mg/dL (0.6-1.0) 0.7 mg/dL (0.6-1.0) Estimated GFR (Cockcroft-Gault) 100.0 83.7 Glucose Level 85 mg/dL (70-99) 95 mg/dL (70-99) Calcium Level 8.9 mg/dL (8.5-10.1) 8.8 mg/dL (8.5-10.1) Laboratory Tests Test 02/09/20 06:10 White Blood Count 15.2 x10^3/uL (4.0-11.0) Red Blood Count 3.51 x10^6/uL (3.50-5.40) Hemoglobin 9.5 g/dL (12.0-15.5) Hematocrit 29.4 % (36.0-47.0) Mean Corpuscular Volume 84 fL (79-100) Mean Corpuscular Hemoglobin 27 pg (25-35) Mean Corpuscular Hemoglobin Concent 32 g/dL (31-37) Red Cell Distribution Width 14.3 % (11.5-14.5) Platelet Count 536 x10^3/uL (140-400) Neutrophils (%) (Auto) 79 % (31-73) Lymphocytes (%) (Auto) 13 % (24-48) Monocytes (%) (Auto) 5 % (0-9) Eosinophils (%) (Auto) 2 % (0-3) Basophils (%) (Auto) 0 % (0-3) Neutrophils # (Auto) 12.0 x10^3/uL (1.8-7.7) Lymphocytes # (Auto) 2.0 x10^3/uL (1.0-4.8) Monocytes # (Auto) 0.8 x10^3/uL (0.0-1.1) Eosinophils # (Auto) 0.3 x10^3/uL (0.0-0.7) Basophils # (Auto) 0.1 x10^3/uL (0.0-0.2) Sodium Level 139 mmol/L (136-145) Potassium Level 4.4 mmol/L (3.5-5.1) Chloride Level 102 mmol/L (98-107) Carbon Dioxide Level 32 mmol/L (21-32) Anion Gap 5 (6-14) Blood Urea Nitrogen 11 mg/dL (7-20) Creatinine 0.7 mg/dL (0.6-1.0) Estimated GFR (Cockcroft-Gault) 83.7 Glucose Level 95 mg/dL (70-99) Calcium Level 8.8 mg/dL (8.5-10.1) Microbiology 02/04/20 Blood Culture - Final, Complete NO GROWTH AFTER 5 DAYS Medications Current Medications Acetaminophen/ Hydrocodone Bitart (Lortab 5/325) 1 tab PRN Q4HRS PRN PO MODERATE TO SEVERE PAIN Last administered on 02/09/20at 07:19; Start 02/03/20 at 11:15 Acetaminophen (Tylenol) 650 mg PRN Q6HRS PRN PO MILD PAIN / TEMP > 100.3'F; Start 02/03/20 at 11:15 Sodium Chloride 1,000 ml @ 75 mls/hr [id number] IV Last administered on 02/08/20at 20:10; Start 02/03/20 at 12:45 Ondansetron HCl (Zofran) 4 mg PRN Q6HRS PRN IV NAUSEA/VOMITING; Start 02/03/20 at 15:15; Stop 02/03/20 at 19:28; Status DC Fentanyl Citrate (Fentanyl 2ml Vial) 25 mcg PRN Q5MIN PRN IV MILD PAIN 1-3; Start 02/03/20 at 15:15; Stop 02/04/20 at 15:14; Status DC Fentanyl Citrate (Fentanyl 2ml Vial) 50 mcg PRN Q5MIN PRN IV MODERATE TO SEVERE PAIN Last administered on 02/04/20at 13:38; Start 02/03/20 at 15:15; Stop at 15:14; Status DC Morphine Sulfate (Morphine Sulfate) 1 mg PRN Q10MIN PRN IV SEVERE PAIN 7-10 Last administered on 02/03/20at 17:30; Start 02/03/20 at 15:15; Stop 02/04/20 at 15:14; Status DC Ringer's Solution 1,000 ml @ 30 mls/hr Q24H IV Last administered on 02/03/20at 15:15; Start 02/03/20 at 15:15; Stop 02/04/20 at 03:14; Status DC Hydromorphone HCl (Dilaudid) 0.5 mg PRN Q10MIN PRN IV SEV PAIN, Second choice; Start 02/03/20 at 15:15; Stop 02/04/20 at 15:14; Status DC Prochlorperazine Edisylate (Compazine) 5 mg PACU PRN PRN IV NAUSEA, MRX1; Start 02/03/20 at 15:15; Stop 02/04/20 at 15:14; Status DC Rocuronium Chardon (Zemuron) 50 mg STK-MED ONCE .ROUTE ; Start 02/03/20 at 15:47; Stop 02/03/20 at 15:47; Status DC Fentanyl Citrate (Fentanyl 5ml Vial) 250 mcg STK-MED ONCE .ROUTE ; Start 02/03/20 at 15:47; Stop 02/03/20 at 15:47; Status DC Cefazolin Sodium (Ancef) 1 gm STK-MED ONCE IVP ; Start 02/03/20 at 16:01; Stop 02/03/20 at 16:02; Status DC Cefazolin Sodium (Ancef) 1 gm STK-MED ONCE IVP ; Start 02/03/20 at 16:01; Stop 02/03/20 at 16:02; Status DC Propofol (Diprivan) 200 mg STK-MED ONCE IV ; Start 02/03/20 at 16:29; Stop 02/03/20 at 16:29; Status DC Lidocaine HCl (Lidocaine Pf 2% Vial) 5 ml STK-MED ONCE .ROUTE ; Start 02/03/20 at 16:29; Stop 02/03/20 at 16:29; Status DC Ondansetron HCl (Zofran) 4 mg STK-MED ONCE .ROUTE ; Start 02/03/20 at 16:29; Stop 02/03/20 at 16:29; Status DC Dexamethasone Sodium Phosphate (Decadron) 4 mg STK-MED ONCE .ROUTE ; Start 02/03/20 at 16:29; Stop 02/03/20 at 16:29; Status DC Sevoflurane (Ultane) 30 ml STK-MED ONCE IH ; Start 02/03/20 at 16:29; Stop 02/03/20 at 16:29; Status DC Neostigmine Chardon (Neostigmine Methylsulfate) 5 mg STK-MED ONCE .ROUTE ; Start 02/03/20 at 16:30; Stop 02/03/20 at 16:30; Status DC Glycopyrrolate (Robinul) 1 mg STK-MED ONCE .ROUTE ; Start 02/03/20 at 16:30; Stop 02/03/20 at 16:31; Status DC Morphine Sulfate (Morphine Sulfate) 2 mg STK-MED ONCE .ROUTE ; Start 02/03/20 at 17:19; Stop 02/03/20 at 17:19; Status DC Morphine Sulfate (Morphine Sulfate) 2 mg PRN Q2HR PRN IV MODERATE PAIN Last administered on 02/07/20at 23:00; Start 02/03/20 at 19:15 Fentanyl Citrate (Fentanyl 2ml Vial) 50 mcg PRN Q2HR PRN IVP SEVERE PAIN Last administered on 02/09/20at 05:13; Start 02/03/20 at 19:15 Ondansetron HCl (Zofran) 4 mg PRN Q6HRS PRN IVP NAUSEA/VOMITING Last administered on 02/05/20at 13:07; Start 02/03/20 at 19:30 Alprazolam (Xanax) 0.5 mg PRN TID PRN PO ANXIETY / AGITATION Last administered on 02/08/20at 22:42; Start 02/03/20 at 20:30 Divalproex Sodium (Depakote) 250 mg BID PO Last administered on 02/08/20at 20:10; Start 02/03/20 at 21:00 Levothyroxine Sodium (Synthroid) 88 mcg DAILYAC PO Last administered on 02/09/20at 05:12; Start 02/04/20 at 07:30 Bupropion HCl (Wellbutrin Sr) 150 mg BID PO Last administered on 02/08/20at 20:10; Start 02/03/20 at 21:00 Calcium/Vitamin D (Oscal D 500mg/ 200uts) 1 tab DAILY PO Last administered on 02/08/20at 08:16; Start 02/04/20 at 09:00 Duloxetine HCl (Cymbalta) 60 mg DAILY PO Last administered on 02/08/20at 08:16; Start 02/04/20 at 09:00 Ibuprofen (Motrin) 800 mg PRN Q8HRS PRN PO INFLAMMATION Last administered on 02/06/20at 08:50; Start 02/03/20 at 20:45 Cetirizine HCl (ZyrTEC) 10 mg DAILY PO Last administered on 02/08/20at 08:17; Start 02/04/20 at 09:00 Multivitamins (Thera M Plus) 1 tab DAILY PO Last administered on 02/08/20at 08:16; Start 02/04/20 at 09:00 Pantoprazole Sodium (Protonix) 40 mg DAILYAC PO Last administered on 02/09/20at 05:12; Start 02/04/20 at 07:30 Non-Formulary Medication (Potassium Gluconate ) 500 mg DAILY PO ; Start 02/04/20 at 09:00; Status UNV Docusate Sodium (Colace) 100 mg BID PO Last administered on 02/08/20at 20:10; Start 02/05/20 at 21:00 Polyethylene Glycol (miraLAX PACKET) 17 gm PRN DAILY PRN PO CONSTIPATION 1ST CHOICE Last administered on 02/08/20at 20:09; Start 02/05/20 at 21:15 Glycerin/ Hypromellose/ Polyethylene (Artificial Tears) 1 drop PRN Q15MIN PRN OU DRY EYE Last administered on 02/06/20at 00:15; Start 02/06/20 at 00:00 Gadoterate Meglumine (Clariscan) 15 ml 1X ONCE IVP Last administered on 02/07/20at 12:06; Start 02/07/20 at 11:45; Stop 02/07/20 at 11:46; Status DC Active Scripts Active Reported Ibuprofen 800 Mg Tablet 800 Mg PO PRN Q8HRS PRN Divalproex Sodium 500 Mg Tablet.dr 250 Mg PO BID Bupropion Hcl Sr (Bupropion Hcl) 150 Mg Tablet.er 150 Mg PO BID Levothyroxine Sodium 88 Mcg Tablet 88 Mcg PO DAILYAC Omeprazole 20 Mg Capsule.dr 1 Cap PO BID Loratadine 10 Mg Tab.rapdis 1 Tab PO DAILY 30 Days Calcium 500 mg-Vit D3 600 Unit (Calcium Carbonate/Vitamin D3) 1 Each Tablet 1 Tab PO DAILY 30 Days Alprazolam 0.5 Mg Tablet 1 Tab PO TID PRN Thera-M Caplet (Multivit,Ther Iron,Ca,Fa & Min) 1 Each Tablet 1 Tab PO DAILY 30 Days Potassium Gluconate 500 Mg Tablet 500 Mg PO DAILY Cymbalta (Duloxetine Hcl) 60 Mg Capsule. 1 Cap PO DAILY Vitals/I & O Vital Sign - Last 24 Hours 02/08/20 02/08/20 02/08/20 02/08/20 09:30 11:00 12:47 13:45 Temp 98.2 98.2 Pulse 93 Resp 18 B/P (MAP) 116/62 (80) Pulse Ox 94 O2 Delivery Room Air Room Air Room Air Room Air 02/08/20 02/08/20 02/08/20 02/08/20 15:00 15:53 16:20 16:59 Temp 97.9 97.9 Pulse 98 Resp 16 B/P (MAP) 120/57 (78) Pulse Ox 93 O2 Delivery Room Air Room Air Room Air Room Air 02/08/20 02/08/20 02/08/20 02/08/20 18:05 19:06 20:00 21:20 Temp 98.0 98.0 Pulse 100 Resp 16 14 B/P (MAP) 120/69 (86) Pulse Ox 98 98 O2 Delivery Room Air Room Air Room Air Room Air 02/08/20 02/08/20 02/08/20 02/08/20 22:42 22:42 23:06 23:30 Temp 98.7 98.7 Pulse 99 Resp 14 14 18 14 B/P (MAP) 133/72 (92) Pulse Ox 97 O2 Delivery Room Air Room Air Room Air Room Air 02/09/20 02/09/20 02/09/20 02/09/20 02:40 02:55 04:13 05:13 Temp 98.3 98.3 Pulse 94 Resp 16 16 14 16 B/P (MAP) 145/68 (93) Pulse Ox 98 O2 Delivery Room Air Room Air Room Air Room Air 02/09/20 02/09/20 02/09/20 05:43 07:00 07:19 Temp 97.5 97.5 Pulse 83 Resp 14 16 16 B/P (MAP) 124/66 (85) Pulse Ox 96 O2 Delivery Room Air Room Air Room Air Intake and Output 02/08/20 02/08/20 02/09/20 15:00 23:00 07:00 Intake Total 4830 ml 800 ml Balance 4830 ml 800 ml Justifications for Admission Other Justification CHUNG TUCKER MD Feb 09, 2020 09:05
[2020-02-09] MEDS: DIVALPROEX DELAYED RELEASE 250 MG TABLET.DR. PO SCH ×2 (09:54→21:32)
[2020-02-09] MEDS: MULTIVITAMIN with MINERAL TABLET. PO SCH (09:55)
[2020-02-09] MEDS: DULoxetine HCL 30 MG CAPSULE.DR PO SCH (09:55)
[2020-02-09] MEDS: CALCIUM CARB/VIT D3 500/200 TABLET. PO SCH (09:55)
[2020-02-09] MEDS: CETIRIZINE HCL 10 MG TABLET. PO SCH (09:55)
[2020-02-09] MEDS: POLYETHYLENE GLYCOL 3350 17 GM PACKET. PO PRN (09:55)
[2020-02-09] MEDS: DOCUSATE SODIUM 100 MG CAPSULE. PO SCH ×2 (09:56→21:32)
[2020-02-09] MEDS: buPROPion SR 150 MG TABLET.SA PO SCH ×2 (09:56→21:32)
[2020-02-09 11:00] VITALS: BP 102/57
[2020-02-09] MEDS: ALPRAZolam 0.5 MG TABLET PO PRN ×2 (12:55→23:23)
--- NOTE | 2020-02-09 13:14 | PDOC ---
PROGRESS NOTES Date of Service: DATE: 02/09/20 TIME: 13:05 Chief Complaint Chief Complaint Pelvic mass (Suspicious for neoplasm) Backache abdominal discomfort Diabetes mellitus seems to be well controlled with no insulin History of UTIs Anxiety Depression Hypothyroidism Arthritis GERD Plan: Pathology reviewed with no evidence of malignant cells We will discuss with analysis consultant regarding next step in management, laparoscopic procedure vs percutaneous biospsy awaiting for surgical recommendations, most liikely patient will need to be seen by still operator onc, analysis consultant can certainly help facilitate. 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 She presented as a transfer from [employer]. She has a pelvic mass. I discussed the case with the nurse, the patient and the ER physician. We are going to admit the patient. We are going to consult Dr. Pedro Pagan of the SPORTS COORDINATOR service and Oncology. 02/04/2020 Pt seen and examined. Pt has clean and dry intact dressing. Pt is talkative and in pleasant mood. 02/05/2020 No acute events reported overnight, case discussed with nursing staff patient in no acute distress no complaints during my visit 02/06/2020 No acute events reported overnight, case discussed with nursing staff patient in no acute distress no complaints during my visit 02/07/2020 Patient seems to be stable, pain seems to be well controlled, patient was seen in consultation by oncology awaiting results from MRI. Reassurance provided no complaints during my visit 02/08/2020 Patient with emesis this morning. Unfortunately still having some discomfort and is concerned about the erythema surrounding the tube placement site. I tried to reach out to interventional radiology but I am quite sure that we will require surgical intervention if symptoms do not improve. We will wait for analysis consultant to round and give us their expert opinion on the matter reassurance has been provided Vitals Vitals Vital Signs Date Time Temp Pulse Resp B/P (MAP) Pulse Ox O2 Delivery O2 Flow Rate FiO2 02/09/20 11:58 Room Air 02/09/20 11:00 97.9 94 16 102/57 (72) 97 97.9 02/09/20 09:56 2.0 Physical Exam General: Alert, Oriented X3 Heart: Regular rate Lungs: Clear Abdomen: Normal bowel sounds Extremities: No clubbing Skin: No rashes Labs LABS Laboratory Tests Test 02/09/20 06:10 White Blood Count 15.2 x10^3/uL (4.0-11.0) Red Blood Count 3.51 x10^6/uL (3.50-5.40) Hemoglobin 9.5 g/dL (12.0-15.5) Hematocrit 29.4 % (36.0-47.0) Mean Corpuscular Volume 84 fL (79-100) Mean Corpuscular Hemoglobin 27 pg (25-35) Mean Corpuscular Hemoglobin Concent 32 g/dL (31-37) Red Cell Distribution Width 14.3 % (11.5-14.5) Platelet Count 536 x10^3/uL (140-400) Neutrophils (%) (Auto) 79 % (31-73) Lymphocytes (%) (Auto) 13 % (24-48) Monocytes (%) (Auto) 5 % (0-9) Eosinophils (%) (Auto) 2 % (0-3) Basophils (%) (Auto) 0 % (0-3) Neutrophils # (Auto) 12.0 x10^3/uL (1.8-7.7) Lymphocytes # (Auto) 2.0 x10^3/uL (1.0-4.8) Monocytes # (Auto) 0.8 x10^3/uL (0.0-1.1) Eosinophils # (Auto) 0.3 x10^3/uL (0.0-0.7) Basophils # (Auto) 0.1 x10^3/uL (0.0-0.2) Sodium Level 139 mmol/L (136-145) Potassium Level 4.4 mmol/L (3.5-5.1) Chloride Level 102 mmol/L (98-107) Carbon Dioxide Level 32 mmol/L (21-32) Anion Gap 5 (6-14) Blood Urea Nitrogen 11 mg/dL (7-20) Creatinine 0.7 mg/dL (0.6-1.0) Estimated GFR (Cockcroft-Gault) 83.7 Glucose Level 95 mg/dL (70-99) Calcium Level 8.8 mg/dL (8.5-10.1) Comment Review of Relevant I have reviewed the following items angela (where applicable) has been applied. Labs Laboratory Tests Test 02/08/20 03:50 02/09/20 06:10 White Blood Count 15.8 x10^3/uL (4.0-11.0) 15.2 x10^3/uL (4.0-11.0) Red Blood Count 3.55 x10^6/uL (3.50-5.40) 3.51 x10^6/uL (3.50-5.40) Hemoglobin 9.7 g/dL (12.0-15.5) 9.5 g/dL (12.0-15.5) Hematocrit 29.9 % (36.0-47.0) 29.4 % (36.0-47.0) Mean Corpuscular Volume 84 fL (79-100) 84 fL (79-100) Mean Corpuscular Hemoglobin 27 pg (25-35) 27 pg (25-35) Mean Corpuscular Hemoglobin Concent 32 g/dL (31-37) 32 g/dL (31-37) Red Cell Distribution Width 14.9 % (11.5-14.5) 14.3 % (11.5-14.5) Platelet Count 524 x10^3/uL (140-400) 536 x10^3/uL (140-400) Neutrophils (%) (Auto) 79 % (31-73) 79 % (31-73) Lymphocytes (%) (Auto) 14 % (24-48) 13 % (24-48) Monocytes (%) (Auto) 5 % (0-9) 5 % (0-9) Eosinophils (%) (Auto) 2 % (0-3) 2 % (0-3) Basophils (%) (Auto) 0 % (0-3) 0 % (0-3) Neutrophils # (Auto) 12.5 x10^3/uL (1.8-7.7) 12.0 x10^3/uL (1.8-7.7) Lymphocytes # (Auto) 2.2 x10^3/uL (1.0-4.8) 2.0 x10^3/uL (1.0-4.8) Monocytes # (Auto) 0.8 x10^3/uL (0.0-1.1) 0.8 x10^3/uL (0.0-1.1) Eosinophils # (Auto) 0.3 x10^3/uL (0.0-0.7) 0.3 x10^3/uL (0.0-0.7) Basophils # (Auto) 0.1 x10^3/uL (0.0-0.2) 0.1 x10^3/uL (0.0-0.2) Sodium Level 142 mmol/L (136-145) 139 mmol/L (136-145) Potassium Level 4.7 mmol/L (3.5-5.1) 4.4 mmol/L (3.5-5.1) Chloride Level 103 mmol/L (98-107) 102 mmol/L (98-107) Carbon Dioxide Level 33 mmol/L (21-32) 32 mmol/L (21-32) Anion Gap 6 (6-14) 5 (6-14) Blood Urea Nitrogen 8 mg/dL (7-20) 11 mg/dL (7-20) Creatinine 0.6 mg/dL (0.6-1.0) 0.7 mg/dL (0.6-1.0) Estimated GFR (Cockcroft-Gault) 100.0 83.7 Glucose Level 85 mg/dL (70-99) 95 mg/dL (70-99) Calcium Level 8.9 mg/dL (8.5-10.1) 8.8 mg/dL (8.5-10.1) Laboratory Tests Test 02/09/20 06:10 White Blood Count 15.2 x10^3/uL (4.0-11.0) Red Blood Count 3.51 x10^6/uL (3.50-5.40) Hemoglobin 9.5 g/dL (12.0-15.5) Hematocrit 29.4 % (36.0-47.0) Mean Corpuscular Volume 84 fL (79-100) Mean Corpuscular Hemoglobin 27 pg (25-35) Mean Corpuscular Hemoglobin Concent 32 g/dL (31-37) Red Cell Distribution Width 14.3 % (11.5-14.5) Platelet Count 536 x10^3/uL (140-400) Neutrophils (%) (Auto) 79 % (31-73) Lymphocytes (%) (Auto) 13 % (24-48) Monocytes (%) (Auto) 5 % (0-9) Eosinophils (%) (Auto) 2 % (0-3) Basophils (%) (Auto) 0 % (0-3) Neutrophils # (Auto) 12.0 x10^3/uL (1.8-7.7) Lymphocytes # (Auto) 2.0 x10^3/uL (1.0-4.8) Monocytes # (Auto) 0.8 x10^3/uL (0.0-1.1) Eosinophils # (Auto) 0.3 x10^3/uL (0.0-0.7) Basophils # (Auto) 0.1 x10^3/uL (0.0-0.2) Sodium Level 139 mmol/L (136-145) Potassium Level 4.4 mmol/L (3.5-5.1) Chloride Level 102 mmol/L (98-107) Carbon Dioxide Level 32 mmol/L (21-32) Anion Gap 5 (6-14) Blood Urea Nitrogen 11 mg/dL (7-20) Creatinine 0.7 mg/dL (0.6-1.0) Estimated GFR (Cockcroft-Gault) 83.7 Glucose Level 95 mg/dL (70-99) Calcium Level 8.8 mg/dL (8.5-10.1) Microbiology 02/04/20 Blood Culture - Final, Complete NO GROWTH AFTER 5 DAYS Medications Current Medications Acetaminophen/ Hydrocodone Bitart (Lortab 5/325) 1 tab PRN Q4HRS PRN PO MODERATE TO SEVERE PAIN Last administered on 02/09/20at 11:58; Start 02/03/20 at 11:15 Acetaminophen (Tylenol) 650 mg PRN Q6HRS PRN PO MILD PAIN / TEMP > 100.3'F; Start 02/03/20 at 11:15 Sodium Chloride 1,000 ml @ 75 mls/hr [id number] IV Last administered on 02/09/20at 12:55; Start 02/03/20 at 12:45 Ondansetron HCl (Zofran) 4 mg PRN Q6HRS PRN IV NAUSEA/VOMITING; Start 02/03/20 at 15:15; Stop 02/03/20 at 19:28; Status DC Fentanyl Citrate (Fentanyl 2ml Vial) 25 mcg PRN Q5MIN PRN IV MILD PAIN 1-3; Start 02/03/20 at 15:15; Stop 02/04/20 at 15:14; Status DC Fentanyl Citrate (Fentanyl 2ml Vial) 50 mcg PRN Q5MIN PRN IV MODERATE TO SEVERE PAIN Last administered on 02/04/20at 13:38; Start 02/03/20 at 15:15; Stop 02/04/20 at 15:14; Status DC Morphine Sulfate (Morphine Sulfate) 1 mg PRN Q10MIN PRN IV SEVERE PAIN 7-10 Last administered on 02/03/20at 17:30; Start 02/03/20 at 15:15; Stop 02/04/20 at 15:14; Status DC Ringer's Solution 1,000 ml @ 30 mls/hr Q24H IV Last administered on 02/03/20at 15:15; Start 02/03/20 at 15:15; Stop 02/04/20 at 03:14; Status DC Hydromorphone HCl (Dilaudid) 0.5 mg PRN Q10MIN PRN IV SEV PAIN, Second choice; Start 02/03/20 at 15:15; Stop 02/04/20 at 15:14; Status DC Prochlorperazine Edisylate (Compazine) 5 mg PACU PRN PRN IV NAUSEA, MRX1; Start 02/03/20 at 15:15; Stop 02/04/20 at 15:14; Status DC Rocuronium [place] (Zemuron) 50 mg STK-MED ONCE .ROUTE ; Start 02/03/20 at 15:47; Stop 02/03/20 at 15:47; Status DC Fentanyl Citrate (Fentanyl 5ml Vial) 250 mcg STK-MED ONCE .ROUTE ; Start 02/03/20 at 15:47; Stop 02/03/20 at 15:47; Status DC Cefazolin Sodium (Ancef) 1 gm STK-MED ONCE IVP ; Start 02/03/20 at 16:01; Stop 02/03/20 at 16:02; Status DC Cefazolin Sodium (Ancef) 1 gm STK-MED ONCE IVP ; Start 02/03/20 at 16:01; Stop 02/03/20 at 16:02; Status DC Propofol (Diprivan) 200 mg STK-MED ONCE IV ; Start 11/21/20 at 16:29; Stop 02/03/20 at 16:29; Status DC Lidocaine HCl (Lidocaine Pf 2% Vial) 5 ml STK-MED ONCE .ROUTE ; Start 02/03/20 at 16:29; Stop 02/03/20 at 16:29; Status DC Ondansetron HCl (Zofran) 4 mg STK-MED ONCE .ROUTE ; Start 02/03/20 at 16:29; Stop 02/03/20 at 16:29; Status DC Dexamethasone Sodium Phosphate (Decadron) 4 mg STK-MED ONCE .ROUTE ; Start 02/03/20 at 16:29; Stop 02/03/20 at 16:29; Status DC Sevoflurane (Ultane) 30 ml STK-MED ONCE IH ; Start 02/03/20 at 16:29; Stop 02/03/20 at 16:29; Status DC Neostigmine [place] (Neostigmine Methylsulfate) 5 mg STK-MED ONCE .ROUTE ; Start 02/03/20 at 16:30; Stop 02/03/20 at 16:30; Status DC Glycopyrrolate (Robinul) 1 mg STK-MED ONCE .ROUTE ; Start 02/03/20 at 16:30; Stop 02/03/20 at 16:31; Status DC Morphine Sulfate (Morphine Sulfate) 2 mg STK-MED ONCE .ROUTE ; Start 02/03/20 at 17:19; Stop 02/03/20 at 17:19; Status DC Morphine Sulfate (Morphine Sulfate) 2 mg PRN Q2HR PRN IV MODERATE PAIN Last administered on 02/07/20at 23:00; Start 02/03/20 at 19:15 Fentanyl Citrate (Fentanyl 2ml Vial) 50 mcg PRN Q2HR PRN IVP SEVERE PAIN Last administered on 02/09/20at 09:57; Start 02/03/20 at 19:15 Ondansetron HCl (Zofran) 4 mg PRN Q6HRS PRN IVP NAUSEA/VOMITING Last administered on 02/05/20at 13:07; Start 02/03/20 at 19:30 Alprazolam (Xanax) 0.5 mg PRN TID PRN PO ANXIETY / AGITATION Last administered on 02/09/20at 12:55; Start 02/03/20 at 20:30 Divalproex Sodium (Depakote) 250 mg BID PO Last administered on 02/09/20 09:54; Start 02/03/20 at 21:00 Levothyroxine Sodium (Synthroid) 88 mcg DAILYAC PO Last administered on 02/09/20 05:12; Start 02/04/20 at 07:30 Bupropion HCl (Wellbutrin Sr) 150 mg BID PO Last administered on 02/09/20 09:56; Start 02/03/20 at 21:00 Calcium/Vitamin D (Oscal D 500mg/ 200uts) 1 tab DAILY PO Last administered on 02/09/20 09:55; Start 02/04/20 at 09:00 Duloxetine HCl (Cymbalta) 60 mg DAILY PO Last administered on 02/09/20 09:55; Start 02/04/20 at 09:00 Ibuprofen (Motrin) 800 mg PRN Q8HRS PRN PO INFLAMMATION Last administered on 02/06/20 08:50; Start 02/03/20 at 20:45 Cetirizine HCl (ZyrTEC) 10 mg DAILY PO Last administered on 02/09/20 09:55; Start 02/04/20 at 09:00 Multivitamins (Thera M Plus) 1 tab DAILY PO Last administered on 02/09/20 09:55; Start 02/04/20 at 09:00 Pantoprazole Sodium (Protonix) 40 mg DAILYAC PO Last administered on 02/09/20 05:12; Start 02/04/20 at 07:30 Non-Formulary Medication (Potassium Gluconate ) 500 mg DAILY PO ; Start 02/04/20 at 09:00; Status UNV Docusate Sodium (Colace) 100 mg BID PO Last administered on 02/09/20 09:56; Start 02/05/20 at 21:00 Polyethylene Glycol (miraLAX PACKET) 17 gm PRN DAILY PRN PO CONSTIPATION 1ST CHOICE Last administered on 02/09/20 09:55; Start 02/05/20 at 21:15 Glycerin/ Hypromellose/ Polyethylene (Artificial Tears) 1 drop PRN Q15MIN PRN OU DRY EYE Last administered on 02/06/20at 00:15; Start 02/06/20 at 00:00 Gadoterate Meglumine (Clariscan) 15 ml 1X ONCE IVP Last administered on 02/07/20at 12:06; Start 02/07/20 at 11:45; Stop 02/07/20 at 11:46; Status DC Active Scripts Active Reported Ibuprofen 800 Mg Tablet 800 Mg PO PRN Q8HRS PRN Divalproex Sodium 500 Mg Tablet. 250 Mg PO BID Bupropion Hcl Sr (Bupropion Hcl) 150 Mg Tablet.er 150 Mg PO BID Levothyroxine Sodium 88 Mcg Tablet 88 Mcg PO DAILYAC Omeprazole 20 Mg Capsule.dr 1 Cap PO BID Loratadine 10 Mg Tab.rapdis 1 Tab PO DAILY 30 Days Calcium 500 mg-Vit D3 600 Unit (Calcium Carbonate/Vitamin D3) 1 Each Tablet 1 Tab PO DAILY 30 Days Alprazolam 0.5 Mg Tablet 1 Tab PO TID PRN Thera-M Caplet (Multivit,Ther Iron,Ca,Fa & Min) 1 Each Tablet 1 Tab PO DAILY 30 Days Potassium Gluconate 500 Mg Tablet 500 Mg PO DAILY Cymbalta (Duloxetine Hcl) 60 Mg Capsule. 1 Cap PO DAILY Vitals/I & O Vital Sign - Last 24 Hours 02/08/20 02/08/20 02/08/20 02/08/20 13:45 15:00 15:53 16:20 Temp 97.9 97.9 Pulse 98 Resp 16 B/P (MAP) 120/57 (78) Pulse Ox 93 O2 Delivery Room Air Room Air Room Air Room Air 02/08/20 02/08/20 02/08/20 02/08/20 16:59 18:05 19:06 20:00 Temp 98.0 98.0 Pulse 100 Resp 16 B/P (MAP) 120/69 (86) Pulse Ox 98 O2 Delivery Room Air Room Air Room Air Room Air 02/08/20 02/08/20 02/08/20 02/08/20 21:20 22:42 22:42 23:06 Temp 98.7 98.7 Pulse 99 Resp 14 14 14 18 B/P (MAP) 133/72 (92) Pulse Ox 98 97 O2 Delivery Room Air Room Air Room Air Room Air 02/08/20 02/09/20 02/09/20 02/09/20 23:30 02:40 02:55 04:13 Temp 98.3 98.3 Pulse 94 Resp 14 16 16 14 B/P (MAP) 145/68 (93) Pulse Ox 98 O2 Delivery Room Air Room Air Room Air Room Air 02/09/20 02/09/20 02/09/20 02/09/20 05:13 05:43 07:00 07:19 Temp 97.5 97.5 Pulse 83 Resp 16 14 16 16 B/P (MAP) 124/66 (85) Pulse Ox 96 O2 Delivery Room Air Room Air Room Air Room Air 02/09/20 02/09/20 02/09/20 02/09/20 09:56 09:57 10:30 11:00 Temp 97.9 97.9 Pulse 94 Resp 16 B/P (MAP) 102/57 (72) Pulse Ox 97 O2 Delivery Room Air Room Air Room Air Room Air O2 Flow Rate 2.0 02/09/20 11:58 O2 Delivery Room Air Intake and Output 02/08/20 02/08/20 02/09/20 15:00 23:00 07:00 Intake Total 4830 ml 800 ml Balance 4830 ml 800 ml Justicifation of Admission Dx: Justifications for Admission: Justification of Admission Dx: Comment: MARVIN HIGUERA MD Feb 09, 2020 13:14
[2020-02-09 14:13] LABS: CEA 1.2 ng/mL (0.0-4.7)
[2020-02-09 15:00] VITALS: BP 104/69
[2020-02-09] MEDS ORDERED: MAGNESIUM CITRATE 296 ML SOLUTION. PO ONE (15:00)
--- NOTE | 2020-02-09 16:18 | PDOC2 ---
CONSULT Date of Consult Date of Consult DATE: 02/09/20 TIME: 16:14 Reason for Consult Reason for Consult: pelvic mass Referring Physician Referring Physician: Dr. Tse Identification/Chief Complaint Chief Complaint abd pain Source Source: Chart review, Patient History of Present Illness Reason for Visit: 64 yo F with c/o abd pain and also nausea Past Medical History Cardiovascular: No pertinent hx Past Surgical History Past Surgical History: Other (xlap by firearms specialist) Family History Family History: Diabetes Social History No ALCOHOL: none Current Medications Current Medications Current Medications Acetaminophen/ Hydrocodone Bitart (Lortab 5/325) 1 tab PRN Q4HRS PRN PO MODERATE TO SEVERE PAIN Last administered on 02/09/20at 11:58; Start 02/03/20 at 11:15 Acetaminophen (Tylenol) 650 mg PRN Q6HRS PRN PO MILD PAIN / TEMP > 100.3'F; Start 02/03/20 at 11:15 Sodium Chloride 1,000 ml @ 75 mls/hr [id number] IV Last administered on 02/09/20at 12:55; Start 02/03/20 at 12:45 Ondansetron HCl (Zofran) 4 mg PRN Q6HRS PRN IV NAUSEA/VOMITING; Start 02/03/20 at 15:15; Stop 02/03/20 at 19:28; Status DC Fentanyl Citrate (Fentanyl 2ml Vial) 25 mcg PRN Q5MIN PRN IV MILD PAIN 1-3; Start 02/03/20 at 15:15; Stop 02/04/20 at 15:14; Status DC Fentanyl Citrate (Fentanyl 2ml Vial) 50 mcg PRN Q5MIN PRN IV MODERATE TO SEVERE PAIN Last administered on 02/04/20at 13:38; Start 02/03/20 at 15:15; Stop 02/04/20 at 15:14; Status DC Morphine Sulfate (Morphine Sulfate) 1 mg PRN Q10MIN PRN IV SEVERE PAIN 7-10 Last administered on 02/03/20at 17:30; Start 02/03/20 at 15:15; Stop 02/04/20 at 15:14; Status DC Ringer's Solution 1,000 ml @ 30 mls/hr Q24H IV Last administered on 02/03/20at 15:15; Start 02/03/20 at 15:15; Stop 02/04/20 at 03:14; Status DC Hydromorphone HCl (Dilaudid) 0.5 mg PRN Q10MIN PRN IV SEV PAIN, Second choice; Start 02/03/20 at 15:15; Stop 02/04/20 at 15:14; Status DC Prochlorperazine Edisylate (Compazine) 5 mg PACU PRN PRN IV NAUSEA, MRX1; Start 02/03/20 at 15:15; Stop 02/04/20 at 15:14; Status DC Rocuronium [place] (Zemuron) 50 mg STK-MED ONCE .ROUTE ; Start 02/03/20 at 15:47; Stop 02/03/20 at 15:47; Status DC Fentanyl Citrate (Fentanyl 5ml Vial) 250 mcg STK-MED ONCE .ROUTE ; Start 02/03/20 at 15:47; Stop 02/03/20 at 15:47; Status DC Cefazolin Sodium (Ancef) 1 gm STK-MED ONCE IVP ; Start 02/03/20 at 16:01; Stop 02/03/20 at 16:02; Status DC Cefazolin Sodium (Ancef) 1 gm STK-MED ONCE IVP ; Start 02/03/20 at 16:01; Stop 02/03/20 at 16:02; Status DC Propofol (Diprivan) 200 mg STK-MED ONCE IV ; Start 02/03/20 at 16:29; Stop 02/03/20 at 16:29; Status DC Lidocaine HCl (Lidocaine Pf 2% Vial) 5 ml STK-MED ONCE .ROUTE ; Start 02/03/20 at 16:29; Stop 02/03/20 at 16:29; Status DC Ondansetron HCl (Zofran) 4 mg STK-MED ONCE .ROUTE ; Start 02/03/20 at 16:29; Stop 02/03/20 at 16:29; Status DC Dexamethasone Sodium Phosphate (Decadron) 4 mg STK-MED ONCE .ROUTE ; Start 02/03/20 at 16:29; Stop 02/03/20 at 16:29; Status DC Sevoflurane (Ultane) 30 ml STK-MED ONCE IH ; Start 02/03/20 at 16:29; Stop 02/03/20 at 16:29; Status DC Neostigmine [place] (Neostigmine Methylsulfate) 5 mg STK-MED ONCE .ROUTE ; Start 02/03/20 at 16:30; Stop 02/03/20 at 16:30; Status DC Glycopyrrolate (Robinul) 1 mg STK-MED ONCE .ROUTE ; Start 02/03/20 at 16:30; Stop 02/03/20 at 16:31; Status DC Morphine Sulfate (Morphine Sulfate) 2 mg STK-MED ONCE .ROUTE ; Start 02/03/20 at 17:19; Stop 02/03/20 at 17:19; Status DC Morphine Sulfate (Morphine Sulfate) 2 mg PRN Q2HR PRN IV MODERATE PAIN Last administered on 02/07/20 23:00; Start 02/03/20 at 19:15 Fentanyl Citrate (Fentanyl 2ml Vial) 50 mcg PRN Q2HR PRN IVP SEVERE PAIN Last administered on 02/09/20at 14:58; Start 02/03/20 at 19:15 Ondansetron HCl (Zofran) 4 mg PRN Q6HRS PRN IVP NAUSEA/VOMITING Last administered on 02/05/20at 13:07; Start 02/03/20 at 19:30 Alprazolam (Xanax) 0.5 mg PRN TID PRN PO ANXIETY / AGITATION Last administered on 02/09/20at 12:55; Start 02/03/20 at 20:30 Divalproex Sodium (Depakote) 250 mg BID PO Last administered on 02/09/20at 09:54; Start 02/03/20 at 21:00 Levothyroxine Sodium (Synthroid) 88 mcg DAILYAC PO Last administered on at 05:12; Start 02/04/20 at 07:30 Bupropion HCl (Wellbutrin Sr) 150 mg BID PO Last administered on 02/09/20 09:56; Start 02/03/20 at 21:00 Calcium/Vitamin D (Oscal D 500mg/ 200uts) 1 tab DAILY PO Last administered on 02/09/20 09:55; Start 02/04/20 at 09:00 Duloxetine HCl (Cymbalta) 60 mg DAILY PO Last administered on 02/09/20at 09:55; Start 02/04/20 at 09:00 Ibuprofen (Motrin) 800 mg PRN Q8HRS PRN PO INFLAMMATION Last administered on 02/06/20 08:50; Start 02/03/20 at 20:45 Cetirizine HCl (ZyrTEC) 10 mg DAILY PO Last administered on 02/09/20at 09:55; Start 02/04/20 at 09:00 Multivitamins (Thera M Plus) 1 tab DAILY PO Last administered on 02/09/20at 09:55; Start 02/04/20 at 09:00 Pantoprazole Sodium (Protonix) 40 mg DAILYAC PO Last administered on 02/09/20at 05:12; Start 02/04/20 at 07:30 Non-Formulary Medication (Potassium Gluconate ) 500 mg DAILY PO ; Start at 09:00; Status UNV Docusate Sodium (Colace) 100 mg BID PO Last administered on 02/09/20at 09:56; Start 02/05/20 at 21:00 Polyethylene Glycol (miraLAX PACKET) 17 gm PRN DAILY PRN PO CONSTIPATION 1ST CHOICE Last administered on 02/09/20at 09:55; Start 02/05/20 at 21:15 Glycerin/ Hypromellose/ Polyethylene (Artificial Tears) 1 drop PRN Q15MIN PRN OU DRY EYE Last administered on 02/06/20at 00:15; Start 02/06/20 at 00:00 Gadoterate Meglumine (Clariscan) 15 ml 1X ONCE IVP Last administered on at 12:06; Start 02/07/20 at 11:45; Stop 02/07/20 at 11:46; Status DC Magnesium Citrate (Citroma) 296 ml 1X ONCE PO ; Start 02/09/20 at 15:00; Stop 02/09/20 at 15:01; Status DC Active Scripts Active Reported Ibuprofen 800 Mg Tablet 800 Mg PO PRN Q8HRS PRN Divalproex Sodium 500 Mg Tablet.dr 250 Mg PO BID Bupropion Hcl Sr (Bupropion Hcl) 150 Mg Tablet.er 150 Mg PO BID Levothyroxine Sodium 88 Mcg Tablet 88 Mcg PO DAILYAC Omeprazole 20 Mg Capsule.dr 1 Cap PO BID Loratadine 10 Mg Tab.rapdis 1 Tab PO DAILY 30 Days Calcium 500 mg-Vit D3 600 Unit (Calcium Carbonate/Vitamin D3) 1 Each Tablet 1 Ta b PO DAILY 30 Days Alprazolam 0.5 Mg Tablet 1 Tab PO TID PRN Thera-M Caplet (Multivit,Ther Iron,Ca,Fa & Min) 1 Each Tablet 1 Tab PO DAILY 30 Days Potassium Gluconate 500 Mg Tablet 500 Mg PO DAILY Cymbalta (Duloxetine Hcl) 60 Mg Capsule. 1 Cap PO DAILY Allergies Allergies: Coded Allergies: latex (Verified Allergy, Severe, Hives, 02/07/20) latex gloves-hives, swelling fexofenadine (Verified Allergy, Mild, Anxiety, 02/03/20) The decongestant makes me really "wired" ROS Gastrointestinal: Yes Nausea, Yes Abdominal Pain Physical Exam General: Alert, Oriented X3, Cooperative, No acute distress HEENT: Atraumatic Lungs: Normal air movement Abdomen: Soft, Other (dressing on pfannensteil incision) Extremities: No clubbing, No cyanosis Skin: No rashes, No breakdown Neuro: Normal gait, Normal speech Psych/Mental Status: Mental status NL, Mood NL Vitals VITALS Vital Signs Date Time Temp Pulse Resp B/P (MAP) Pulse Ox O2 Delivery O2 Flow Rate FiO2 02/09/20 15:00 97.7 95 16 104/69 (81) 95 Nasal Cannula 3.0 97.7 Labs Labs Laboratory Tests Test 02/08/20 03:50 02/09/20 06:10 White Blood Count 15.8 x10^3/uL (4.0-11.0) 15.2 x10^3/uL (4.0-11.0) Red Blood Count 3.55 x10^6/uL (3.50-5.40) 3.51 x10^6/uL (3.50-5.40) Hemoglobin 9.7 g/dL (12.0-15.5) 9.5 g/dL (12.0-15.5) Hematocrit 29.9 % (36.0-47.0) 29.4 % (36.0-47.0) Mean Corpuscular Volume 84 fL (79-100) 84 fL (79-100) Mean Corpuscular Hemoglobin 27 pg (25-35) 27 pg (25-35) Mean Corpuscular Hemoglobin Concent 32 g/dL (31-37) 32 g/dL (31-37) Red Cell Distribution Width 14.9 % (11.5-14.5) 14.3 % (11.5-14.5) Platelet Count 524 x10^3/uL (140-400) 536 x10^3/uL (140-400) Neutrophils (%) (Auto) 79 % (31-73) 79 % (31-73) Lymphocytes (%) (Auto) 14 % (24-48) 13 % (24-48) Monocytes (%) (Auto) 5 % (0-9) 5 % (0-9) Eosinophils (%) (Auto) 2 % (0-3) 2 % (0-3) Basophils (%) (Auto) 0 % (0-3) 0 % (0-3) Neutrophils # (Auto) 12.5 x10^3/uL (1.8-7.7) 12.0 x10^3/uL (1.8-7.7) Lymphocytes # (Auto) 2.2 x10^3/uL (1.0-4.8) 2.0 x10^3/uL (1.0-4.8) Monocytes # (Auto) 0.8 x10^3/uL (0.0-1.1) 0.8 x10^3/uL (0.0-1.1) Eosinophils # (Auto) 0.3 x10^3/uL (0.0-0.7) 0.3 x10^3/uL (0.0-0.7) Basophils # (Auto) 0.1 x10^3/uL (0.0-0.2) 0.1 x10^3/uL (0.0-0.2) Sodium Level 142 mmol/L (136-145) 139 mmol/L (136-145) Potassium Level 4.7 mmol/L (3.5-5.1) 4.4 mmol/L (3.5-5.1) Chloride Level 103 mmol/L (98-107) 102 mmol/L (98-107) Carbon Dioxide Level 33 mmol/L (21-32) 32 mmol/L (21-32) Anion Gap 6 (6-14) 5 (6-14) Blood Urea Nitrogen 8 mg/dL (7-20) 11 mg/dL (7-20) Creatinine 0.6 mg/dL (0.6-1.0) 0.7 mg/dL (0.6-1.0) Estimated GFR (Cockcroft-Gault) 100.0 83.7 Glucose Level 85 mg/dL (70-99) 95 mg/dL (70-99) Calcium Level 8.9 mg/dL (8.5-10.1) 8.8 mg/dL (8.5-10.1) Laboratory Tests Test 02/09/20 06:10 White Blood Count 15.2 x10^3/uL (4.0-11.0) Red Blood Count 3.51 x10^6/uL (3.50-5.40) Hemoglobin 9.5 g/dL (12.0-15.5) Hematocrit 29.4 % (36.0-47.0) Mean Corpuscular Volume 84 fL (79-100) Mean Corpuscular Hemoglobin 27 pg (25-35) Mean Corpuscular Hemoglobin Concent 32 g/dL (31-37) Red Cell Distribution Width 14.3 % (11.5-14.5) Platelet Count 536 x10^3/uL (140-400) Neutrophils (%) (Auto) 79 % (31-73) Lymphocytes (%) (Auto) 13 % (24-48) Monocytes (%) (Auto) 5 % (0-9) Eosinophils (%) (Auto) 2 % (0-3) Basophils (%) (Auto) 0 % (0-3) Neutrophils # (Auto) 12.0 x10^3/uL (1.8-7.7) Lymphocytes # (Auto) 2.0 x10^3/uL (1.0-4.8) Monocytes # (Auto) 0.8 x10^3/uL (0.0-1.1) Eosinophils # (Auto) 0.3 x10^3/uL (0.0-0.7) Basophils # (Auto) 0.1 x10^3/uL (0.0-0.2) Sodium Level 139 mmol/L (136-145) Potassium Level 4.4 mmol/L (3.5-5.1) Chloride Level 102 mmol/L (98-107) Carbon Dioxide Level 32 mmol/L (21-32) Anion Gap 5 (6-14) Blood Urea Nitrogen 11 mg/dL (7-20) Creatinine 0.7 mg/dL (0.6-1.0) Estimated GFR (Cockcroft-Gault) 83.7 Glucose Level 95 mg/dL (70-99) Calcium Level 8.8 mg/dL (8.5-10.1) Images Images Pelvic MRI with adenexal mass Assessment/Plan Assessment/Plan Pelvic mass with concern for local invasion by xlap by firearms specialist would favor transfer to [facility] or for firearms specialist onc evaluation. Would be happy to assist surgical intervention if transferred to [facility]. Thanks for consult! LEVON MONTANA MD Feb 09, 2020 16:18
[2020-02-09 19:15] VITALS: BP 124/75
[2020-02-09] MEDS: IBUPROFEN 400 MG TABLET. PO PRN (21:34)
[2020-02-09 23:14] VITALS: BP 117/67
[2020-02-10] MEDS: IV NORMAL SALINE 1000ML BAG 1,000 ML IV SCH ×2 (00:29→18:05)
[2020-02-10 03:29] VITALS: BP 121/70
[2020-02-10] MEDS: LEVOTHYROXINE 88 MCG TABLET PO SCH (06:37)
[2020-02-10] MEDS: PANTOPRAZOLE 40 MG TABLET.DR. PO SCH (06:37)
[2020-02-10] MEDS: HYDROcodone/APAP 5/325MG 1 TAB TABLET PO PRN ×3 (06:37→14:54)
[2020-02-10 07:00] VITALS: BP 134/76
[2020-02-10 08:59] LABS: CALCIUM 8.8 mg/dL (8.5-10.1); CREATININE 0.8 mg/dL (0.6-1.0); GFR 71.8
[2020-02-10 09:07] LABS: BASO # 0.1 x10^3/uL (0.0-0.2); BASO % 1 % (0-3); EOS # 0.2 x10^3/uL (0.0-0.7); EOS % 2 % (0-3); HEMATOCRIT 31.1 % (36.0-47.0); HEMOGLOBIN 10.4 g/dL (12.0-15.5); LYMPH # 1.9 x10^3/uL (1.0-4.8); LYMPH % 14 % (24-48); MEAN CORPUSCULAR HEMOGLOBIN 28 pg (25-35); MEAN CORPUSCULAR HGB CONC 33 g/dL (31-37); MEAN CORPUSCULAR VOLUME 85 fL (79-100); MONO # 0.6 x10^3/uL (0.0-1.1); MONO % 4 % (0-9); NEUT % 80 % (31-73); PLATELET COUNT 603 x10^3/uL (140-400); RED BLOOD COUNT 3.68 x10^6/uL (3.50-5.40); RED CELL DISTRIBUTION WIDTH 14.9 % (11.5-14.5); WHITE BLOOD COUNT 13.8 x10^3/uL (4.0-11.0)
[2020-02-10] MEDS: CALCIUM CARB/VIT D3 500/200 TABLET. PO SCH (09:49)
[2020-02-10] MEDS: DIVALPROEX DELAYED RELEASE 250 MG TABLET.DR. PO SCH (09:49)
[2020-02-10] MEDS: buPROPion SR 150 MG TABLET.SA PO SCH (09:49)
[2020-02-10] MEDS: MULTIVITAMIN with MINERAL TABLET. PO SCH (09:49)
[2020-02-10] MEDS: DOCUSATE SODIUM 100 MG CAPSULE. PO SCH (09:50)
[2020-02-10] MEDS: ALPRAZolam 0.5 MG TABLET PO PRN ×2 (09:57→14:52)
[2020-02-10] MEDS: CETIRIZINE HCL 10 MG TABLET. PO SCH (10:02)
[2020-02-10 11:00] VITALS: BP 126/61
--- NOTE | 2020-02-10 14:00 | NUR ---
Spoke with Dalton in radiology re: uploading images to "the cloud" for tx to [facility],he stated he would send them. Face sheet faxed to [phone].
--- NOTE | 2020-02-10 14:05 | PDOC3 ---
Discharge Summary Visit Information Date of Admission: Feb 03, 2020 Date of Discharge: Feb 10, 2020 Admitting Diagnosis Comment: Pelvic mass. Final Diagnosis Pelvic mass (Suspicious for neoplasm) Backache abdominal discomfort Diabetes mellitus seems to be well controlled with no insulin History of UTIs Anxiety Depression Hypothyroidism Arthritis GERD Brief Hospital Course Allergies Allergies Coded Allergies Type Severity Reaction Last Updated Verified latex Allergy Severe Hives 02/07/20 Yes fexofenadine Allergy Mild Anxiety 02/03/20 Yes Vital Signs Vital Signs Date Time Temp Pulse Resp B/P (MAP) Pulse Ox O2 Delivery O2 Flow Rate FiO2 02/10/20 11:00 97.6 93 16 126/61 (82) 97 Room Air 97.6 02/09/20 15:00 3.0 Lab Results Laboratory Tests Test 02/09/20 06:10 02/10/20 07:31 White Blood Count 15.2 x10^3/uL (4.0-11.0) 13.8 x10^3/uL (4.0-11.0) Red Blood Count 3.51 x10^6/uL (3.50-5.40) 3.68 x10^6/uL (3.50-5.40) Hemoglobin 9.5 g/dL (12.0-15.5) 10.4 g/dL (12.0-15.5) Hematocrit 29.4 % (36.0-47.0) 31.1 % (36.0-47.0) Mean Corpuscular Volume 84 fL (79-100) 85 fL (79-100) Mean Corpuscular Hemoglobin 27 pg (25-35) 28 pg (25-35) Mean Corpuscular Hemoglobin Concent 32 g/dL (31-37) 33 g/dL (31-37) Red Cell Distribution Width 14.3 % (11.5-14.5) 14.9 % (11.5-14.5) Platelet Count 536 x10^3/uL (140-400) 603 x10^3/uL (140-400) Neutrophils (%) (Auto) 79 % (31-73) 80 % (31-73) Lymphocytes (%) (Auto) 13 % (24-48) 14 % (24-48) Monocytes (%) (Auto) 5 % (0-9) 4 % (0-9) Eosinophils (%) (Auto) 2 % (0-3) 2 % (0-3) Basophils (%) (Auto) 0 % (0-3) 1 % (0-3) Neutrophils # (Auto) 12.0 x10^3/uL (1.8-7.7) 11.0 x10^3/uL (1.8-7.7) Lymphocytes # (Auto) 2.0 x10^3/uL (1.0-4.8) 1.9 x10^3/uL (1.0-4.8) Monocytes # (Auto) 0.8 x10^3/uL (0.0-1.1) 0.6 x10^3/uL (0.0-1.1) Eosinophils # (Auto) 0.3 x10^3/uL (0.0-0.7) 0.2 x10^3/uL (0.0-0.7) Basophils # (Auto) 0.1 x10^3/uL (0.0-0.2) 0.1 x10^3/uL (0.0-0.2) Sodium Level 139 mmol/L (136-145) 139 mmol/L (136-145) Potassium Level 4.4 mmol/L (3.5-5.1) 4.0 mmol/L (3.5-5.1) Chloride Level 102 mmol/L (98-107) 100 mmol/L (98-107) Carbon Dioxide Level 32 mmol/L (21-32) 33 mmol/L (21-32) Anion Gap 5 (6-14) 6 (6-14) Blood Urea Nitrogen 11 mg/dL (7-20) 13 mg/dL (7-20) Creatinine 0.7 mg/dL (0.6-1.0) 0.8 mg/dL (0.6-1.0) Estimated GFR (Cockcroft-Gault) 83.7 71.8 Glucose Level 95 mg/dL (70-99) 87 mg/dL (70-99) Calcium Level 8.8 mg/dL (8.5-10.1) 8.8 mg/dL (8.5-10.1) Laboratory Tests Test 02/10/20 07:31 White Blood Count 13.8 x10^3/uL (4.0-11.0) Red Blood Count 3.68 x10^6/uL (3.50-5.40) Hemoglobin 10.4 g/dL (12.0-15.5) Hematocrit 31.1 % (36.0-47.0) Mean Corpuscular Volume 85 fL (79-100) Mean Corpuscular Hemoglobin 28 pg (25-35) Mean Corpuscular Hemoglobin Concent 33 g/dL (31-37) Red Cell Distribution Width 14.9 % (11.5-14.5) Platelet Count 603 x10^3/uL (140-400) Neutrophils (%) (Auto) 80 % (31-73) Lymphocytes (%) (Auto) 14 % (24-48) Monocytes (%) (Auto) 4 % (0-9) Eosinophils (%) (Auto) 2 % (0-3) Basophils (%) (Auto) 1 % (0-3) Neutrophils # (Auto) 11.0 x10^3/uL (1.8-7.7) Lymphocytes # (Auto) 1.9 x10^3/uL (1.0-4.8) Monocytes # (Auto) 0.6 x10^3/uL (0.0-1.1) Eosinophils # (Auto) 0.2 x10^3/uL (0.0-0.7) Basophils # (Auto) 0.1 x10^3/uL (0.0-0.2) Sodium Level 139 mmol/L (136-145) Potassium Level 4.0 mmol/L (3.5-5.1) Chloride Level 100 mmol/L (98-107) Carbon Dioxide Level 33 mmol/L (21-32) Anion Gap 6 (6-14) Blood Urea Nitrogen 13 mg/dL (7-20) Creatinine 0.8 mg/dL (0.6-1.0) Estimated GFR (Cockcroft-Gault) 71.8 Glucose Level 87 mg/dL (70-99) Calcium Level 8.8 mg/dL (8.5-10.1) Brief Hospital Course The patient is a pleasant middle-aged female who 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 She presented as a transfer from [place]. She has a pelvic mass. I discussed the case with the nurse, the patient and the ER physician. We are going to admit the patient. We are going to consult Dr. Pedro Pagan of the [facility] service and Oncology. 02/04/2020 Pt seen and examined. Pt has clean and dry intact dressing. Pt is talkative and in pleasant mood. 02/05/2020 No acute events reported overnight, case discussed with nursing staff patient in no acute distress no complaints during my visit 02/06/2020 No acute events reported overnight, case discussed with nursing staff patient in no acute distress no complaints during my visit 02/07/2020 Patient seems to be stable, pain seems to be well controlled, patient was seen in consultation by oncology awaiting results from MRI. Reassurance provided no complaints during my visit 02/08/2020 Patient with emesis this morning. Unfortunately still having some discomfort and is concerned about the erythema surrounding the tube placement site. I tried to reach out to interventional radiology but I am quite sure that we will require surgical intervention if symptoms do not improve. We will wait for surgical services asst to round and give us their expert opinion on the matter reassurance has been provided 02/09/[address] Gan over the phone. He will review imaging studies and give us their recommendations. All concerns were addressed to the best of my abilities with the patient. Pain continues to be an issue, she is experiencing even trouble ambulating given the pressure and discomfort from the pelvic mass. 02/10/[address] Gan who will help facilitate transfer to [facility] for PSYCH NP oncology consultation. Tumor markers pertinent for Ca1 25 5 CEA within normal range CA 19-9 also within normal range, patient is hemodynamically stable for transfer Case discussed with hospitalist program and PSYCH NP business system consultant Greater than 35 minutes spent in the discharge process the patient counseling coordination of care and arrangements for safe transfer Assessment Assessment [facility] [address] [place] [address] IMAGING REPORT Signed PATIENT: TAJ MCKENO ACCOUNT: [id number] : 1955 LOCATION: [address] [place] [address] AGE: 64 SEX: F EXAM STATUS: ADM IN ORD. PHYSICIAN: CHUNG TUCKER MD REASON: Pelvic mass involving the uterus, small intestine 15mL CLARISCAN PROCEDURE: PELVIS WO/W CONTRAST EXAM: MRI pelvis with and without contrast. HISTORY: Pelvic mass. TECHNIQUE: MRI of the pelvis was performed before and after the intravenous administration of gadolinium contrast. COMPARISON: None available. FINDINGS: There are significant limitations from motion artifact. The examination remains diagnostic for the following. A large solid mass in the false pelvis measures 11.4 x 11.2 x 10.9 cm. It is T2 hyperintense and enhances heterogeneously. Large regions of nonenhancement may reflect necrosis. The organ of origin is unclear. It does not appear to arise from the uterus. The left ovary appears atrophic but the left adnexa is separately visualized. The mass appears to have pedicle that extends to the right, suggesting the right adnexa as a site of origin. There is no clear encasement of vascular structures or involvement of other organs by this technique, though sensitivity is decreased by motion artifact. There is a small amount of pelvic ascites. The endometrial stripe is thin at 3 mm. The uterus is slightly anteverted to neutral. The uterine junctional zone measures 6 mm. Edema is noted throughout the lower anterior abdominal wall subcutaneous and muscular compartments, suggesting recent surgery. There is no drainable collection. IMPRESSION: 1. An 11 cm solid mass within the midline false pelvis may arise from the right adnexa but this is unclear. Considerations include ovarian malignancy, versus an adnexal fibroid or other mesenchymal tumor such as a sarcoma. Surgical consultation is recommended. 2. Comparison with CT is recommended for further anatomic detail, as sensitivity on this examination is limited by motion artifact. 3. Small ascites. 4. Edema throughout the anterior abdominal wall inferiorly. Correlate surgery or other causes. Electronically signed by: Kathia Fuentes MD (02/07/2020 5:08 PM) [id number] DICTATED and SIGNED BY: CHEMA FUENTES MD DATE: 02/07/20 [id number] 0 Discharge Information Condition at Discharge: Improved Follow Up: Weeks Disposition/Orders: D/C to Another Facility Scheduled Bupropion Hcl (Bupropion Hcl Sr) 150 Mg Tablet.er, 150 MG PO BID for depression, (Reported) Entered as Reported by: Shena Anguiano on 02/03/202028 Last Taken: 150 mg BID on Unknown Date & Time Last Action: Converted on 02/03/202031 by Shena Anguiano Calcium Carbonate/Vitamin D3 (Calcium 500 mg-Vit D3 600 Unit) 1 Each Tablet, 1 TAB PO DAILY for supplement for 30 Days, #30 Ref 0 (Reported) Entered as Reported by: Shena Anguiano on 02/03/202028 Last Taken: one daily on 02/03/20 Last Action: Converted on 02/03/202031 by Shena Anguiano Divalproex Sodium (Divalproex Sodium) 500 Mg Tablet., 250 MG PO BID for depression, #60 Ref 1 (Reported) Entered as Reported by: Shena Anguiano on 02/03/202028 Last Taken: 250 mg PO BID on Unknown Date & Time Last Action: Continued on 02/03/202031 by hSena Anguiano Duloxetine Hcl (Cymbalta) 60 Mg Capsule., 1 CAP PO DAILY for depression, #90 Ref 3 (Reported) Entered as Reported by: Shena Anguiano on 02/03/202028 Last Taken: 60 mg PO daily on Unknown Date & Time Last Action: Converted on 02/03/202031 by Shena Anguiano Levothyroxine Sodium (Levothyroxine Sodium) 88 Mcg Tablet, 88 MCG PO DAILYAC for THYROID SUPPLEMENT, #30 Ref 0 (Reported) Entered as Reported by: Shena Anguiano on 02/03/202028 Last Taken: one daily AC on 02/03/20 Last Action: Continued on 02/03/202031 by Shena Anguiano Loratadine (Loratadine) 10 Mg Tab.rapdis, 1 TAB PO DAILY for allergy symptoms for 30 Days, #30 Ref 0 (Reported) Entered as Reported by: Shena Anguiano on 02/03/202028 Last Taken: one daily on 02/03/20 Last Action: Converted on 02/03/202031 by Shena Anguiano Multivit,Ther Iron,Ca,Fa & Min (Thera-M Caplet) 1 Each Tablet, 1 TAB PO DAILY for supplement for 30 Days, #30 Ref 0 (Reported) Entered as Reported by: Shena Anguiano on 02/03/202028 Last Taken: one daily on 02/03/20 Last Action: Converted on 02/03/202031 by Shena Anguiano Omeprazole (Omeprazole) 20 Mg Capsule., 1 CAP PO BID for GERD, #30 Ref 5 (Reported) Entered as Reported by: Shena Anguiano on 02/03/202028 Last Taken: 20 MG BID on Unknown Date & Time Last Action: Converted on 02/03/202031 by Shena Anguiano Potassium Gluconate (Potassium Gluconate) 500 Mg Tablet, 500 MG PO DAILY for muscle spasms, (Reported) Entered as Reported by: Shena Anguiano on 02/03/202028 Last Taken: one tablet daily on Unknown Date & Time Last Action: Converted on 02/03/202031 by Shena Anguiano Scheduled PRN Alprazolam (Alprazolam) 0.5 Mg Tablet, 1 TAB PO TID PRN for ANXIETY / AGITATION, #90 (Reported) Entered as Reported by: Shena Anguiano on 02/03/202028 Last Taken: 0.5 mg PO TID PRNanx on Unknown Date & Time Last Action: Continued on 02/03/202031 by Shena Anguiano Ibuprofen (Ibuprofen) 800 Mg Tablet, 800 MG PO PRN Q8HRS PRN for INFLAMMATION, (Reported) Entered as Reported by: Shena Anguiano on 02/03/202028 Last Taken: 800 mg Q 8hrs PRN on Unknown Date & Time Last Action: Converted on 02/03/202031 by Shena Anguiano Justicifation of Admission Dx: Justifications for Admission: Justification of Admission Dx: Comment: MARVIN HIGUERA MD Feb 10, 2020 14:05
--- NOTE | 2020-02-10 14:36 | NUR ---
Bilateral nares swabbed for Rapid COVID 19 and hand delivered to the lab.
--- NOTE | 2020-02-10 14:38 | PDOC ---
SURGICAL PROGRESS NOTE DATE: 02/10/20 TIME: 14:37 Subjective Pt with c/o pelvic pain, saad some PO, no n/V, passing stools with laxatives Vital Signs Vital Signs Date Time Temp Pulse Resp B/P (MAP) Pulse Ox O2 Delivery O2 Flow Rate FiO2 02/10/20 11:00 97.6 93 16 126/61 (82) 97 Room Air 97.6 02/09/20 15:00 3.0 I&O Intake and Output 02/10/20 07:00 Intake Total 3050 ml Balance 3050 ml Intake Oral 1050 ml IV Total 2000 ml # Voids 5 General: Alert, Oriented X3, Cooperative, No acute distress Abdomen: Soft, Other (dressing intact) Labs Laboratory Tests Test 02/09/20 06:10 02/10/20 07:31 White Blood Count 15.2 x10^3/uL (4.0-11.0) 13.8 x10^3/uL (4.0-11.0) Red Blood Count 3.51 x10^6/uL (3.50-5.40) 3.68 x10^6/uL (3.50-5.40) Hemoglobin 9.5 g/dL (12.0-15.5) 10.4 g/dL (12.0-15.5) Hematocrit 29.4 % (36.0-47.0) 31.1 % (36.0-47.0) Mean Corpuscular Volume 84 fL (79-100) 85 fL (79-100) Mean Corpuscular Hemoglobin 27 pg (25-35) 28 pg (25-35) Mean Corpuscular Hemoglobin Concent 32 g/dL (31-37) 33 g/dL (31-37) Red Cell Distribution Width 14.3 % (11.5-14.5) 14.9 % (11.5-14.5) Platelet Count 536 x10^3/uL (140-400) 603 x10^3/uL (140-400) Neutrophils (%) (Auto) 79 % (31-73) 80 % (31-73) Lymphocytes (%) (Auto) 13 % (24-48) 14 % (24-48) Monocytes (%) (Auto) 5 % (0-9) 4 % (0-9) Eosinophils (%) (Auto) 2 % (0-3) 2 % (0-3) Basophils (%) (Auto) 0 % (0-3) 1 % (0-3) Neutrophils # (Auto) 12.0 x10^3/uL (1.8-7.7) 11.0 x10^3/uL (1.8-7.7) Lymphocytes # (Auto) 2.0 x10^3/uL (1.0-4.8) 1.9 x10^3/uL (1.0-4.8) Monocytes # (Auto) 0.8 x10^3/uL (0.0-1.1) 0.6 x10^3/uL (0.0-1.1) Eosinophils # (Auto) 0.3 x10^3/uL (0.0-0.7) 0.2 x10^3/uL (0.0-0.7) Basophils # (Auto) 0.1 x10^3/uL (0.0-0.2) 0.1 x10^3/uL (0.0-0.2) Sodium Level 139 mmol/L (136-145) 139 mmol/L (136-145) Potassium Level 4.4 mmol/L (3.5-5.1) 4.0 mmol/L (3.5-5.1) Chloride Level 102 mmol/L (98-107) 100 mmol/L (98-107) Carbon Dioxide Level 32 mmol/L (21-32) 33 mmol/L (21-32) Anion Gap 5 (6-14) 6 (6-14) Blood Urea Nitrogen 11 mg/dL (7-20) 13 mg/dL (7-20) Creatinine 0.7 mg/dL (0.6-1.0) 0.8 mg/dL (0.6-1.0) Estimated GFR (Cockcroft-Gault) 83.7 71.8 Glucose Level 95 mg/dL (70-99) 87 mg/dL (70-99) Calcium Level 8.8 mg/dL (8.5-10.1) 8.8 mg/dL (8.5-10.1) Laboratory Tests Test 02/10/20 07:31 White Blood Count 13.8 x10^3/uL (4.0-11.0) Red Blood Count 3.68 x10^6/uL (3.50-5.40) Hemoglobin 10.4 g/dL (12.0-15.5) Hematocrit 31.1 % (36.0-47.0) Mean Corpuscular Volume 85 fL (79-100) Mean Corpuscular Hemoglobin 28 pg (25-35) Mean Corpuscular Hemoglobin Concent 33 g/dL (31-37) Red Cell Distribution Width 14.9 % (11.5-14.5) Platelet Count 603 x10^3/uL (140-400) Neutrophils (%) (Auto) 80 % (31-73) Lymphocytes (%) (Auto) 14 % (24-48) Monocytes (%) (Auto) 4 % (0-9) Eosinophils (%) (Auto) 2 % (0-3) Basophils (%) (Auto) 1 % (0-3) Neutrophils # (Auto) 11.0 x10^3/uL (1.8-7.7) Lymphocytes # (Auto) 1.9 x10^3/uL (1.0-4.8) Monocytes # (Auto) 0.6 x10^3/uL (0.0-1.1) Eosinophils # (Auto) 0.2 x10^3/uL (0.0-0.7) Basophils # (Auto) 0.1 x10^3/uL (0.0-0.2) Sodium Level 139 mmol/L (136-145) Potassium Level 4.0 mmol/L (3.5-5.1) Chloride Level 100 mmol/L (98-107) Carbon Dioxide Level 33 mmol/L (21-32) Anion Gap 6 (6-14) Blood Urea Nitrogen 13 mg/dL (7-20) Creatinine 0.8 mg/dL (0.6-1.0) Estimated GFR (Cockcroft-Gault) 71.8 Glucose Level 87 mg/dL (70-99) Calcium Level 8.8 mg/dL (8.5-10.1) Problem List 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 Justicifation of Admission Dx: Justifications for Admission: Justification of Admission Dx: Comment: LEVON MONTANA MD Feb 10, 2020 14:38
[2020-02-10 14:50] VITALS: BP 108/54
[2020-02-10] MEDS: DULoxetine HCL 30 MG CAPSULE.DR PO SCH (14:52)
[2020-02-10 17:49] VITALS: BP 119/56
[2020-02-10] MEDS: IBUPROFEN 400 MG TABLET. PO PRN (18:00)
--- NOTE | 2020-02-10 18:30 | NUR ---
Patient transferred via ambulance services to [facility]. Patient to go to room 423. Spoke with transfer nurse, Nicole motley and was provided with bed assignment; phone number [phone]. Report called to JAGRUTI Crooks, phone number [phone]. Rapid COVID 19 test results negative. Pertinent information faxed to [phone] prior to patient leaving. All patient belongings sent with the patient.
== END 2020-02-10 18:30 | disposition short-term general hospital (02) | DRG 358 ==
LOC: 4 NORTH 09:22
PROVIDERS: ADMIT Family Medicine; ATTEND Family Medicine
PROC: 0W9G0ZX Drainage of Peritoneal Cavity, Open Approach, Diagnostic (ICD-10-PCS; principal; 2020-02-03 15:01)
DX: R19.00 Intra-abdominal and pelvic swelling, mass and lump, unspecified site (principal); D64.9 Anemia, unspecified; E03.9 Hypothyroidism, unspecified; E11.9 Type 2 diabetes mellitus without complications; F32.9 Major depressive disorder, single episode, unspecified; F41.9 Anxiety disorder, unspecified; K21.9 Gastro-esophageal reflux disease without esophagitis; M19.90 Unspecified osteoarthritis, unspecified site; G89.29 Other chronic pain; Z91.040 Latex allergy status; Z20.828 Contact with and (suspected) exposure to other viral communicable diseases; Z88.8 Allergy status to other drugs, medicaments and biological substances; Z91.048 Other nonmedicinal substance allergy status; Z87.440 Personal history of urinary (tract) infections; Z83.3 Family history of diabetes mellitus
CPT/HCPCS: 36415; 72197; 80048; 82378; 82607; 82728; 83540; 83550; 83605; 85007; 85025; 85045; 86301; 86304; 87040; 87426; 88112; 88305; A9575; J0690; J1100; J2270; J2405; J2704; J2710; J3010; J3490; J7030; J7120; U0003; 97110-GP; 97116-GP; 97530-GO; 97530-GP; 97535-GO; A4461; G0378